=== PATIENT | male | born 1975 | race African-American/Black ===

== ENCOUNTER 2017-03-22 10:16 | Inpatient (IN) | payer OTHER ==
[2017-03-22 11:00] VITALS: BMI 18.6
--- NOTE | 2017-03-22 13:04 | HP ---
CIWA Score - CIWA Score Nausea/Vomitin Muscle Tremors: 2 Anxiety: 4-Mod. Anxious/Guarded Agitation: 2 Paroxysmal Sweats: 2 Orientation: 0-Oriented Tacttile Disturbances: 0-None Auditory Disturbances: 0-None Visual Disturbances: 2-Mild Sensitivity Headache: 0-None Present CIWA-Ar Total Score: 17 Admission ROS BHS - HPI Chief Complaint: "I need help bad." Patient is here to Detox from Alcohol. Allergies/Adverse Reactions: Allergies Allergy/AdvReac Type Severity Reaction Status Date / Time aspirin Allergy Intermediate Rash Verified 03/22/17 12:28 Penicillins Allergy Hives Verified 03/22/17 12:28 milk AdvReac DIARRHEA Verified 03/22/17 12:28 History of Present Illness: Pt. is a 41 YO male here to Detox from Alcohol. Pt. has had several Detox and Rehab admissions [facility] in the past. Exam Limitations: No Limitations - Ebola screening Have you traveled outside of the country in the last 21 days: No Have you had contact with anyone from an Ebola affected area: No Have you been sick,other than usual withdrawal symptoms: No Do you have a fever: No - Review of Systems Constitutional: Diaphoresis, Loss of Appetite, Malaise, Night Sweats, Changes in sleep, Unexplained wgt Loss (Lost approx. 10 lbs. over the last 3 months.) EENT: reports: Nose Congestion, Sinus Pressure Respiratory: reports: No Symptoms reported Cardiac: reports: Chest Pain (Occasional when lying down only. NONE CURRENTLY.) GI: reports: Nausea, Poor Appetite, Vomiting : reports: No Symptoms Reported Musculoskeletal: reports: No Symptoms Reported Integumentary: reports: No Symptoms Reported Neuro: reports: Tremors Endocrine: reports: No Symptoms Reported Hematology: reports: Anemia (Unsure which type. Possibly Iron-Deficiency.) Psychiatric: reports: Judgement Intact, Mood/Affect Appropiate, Orientated x3, Anxious, Depressed Other Systems: Reviewed and Negative Patient History - Patient Medical History Hx Anemia: Yes (unsure. WAIT FOR LAB) Hx Asthma: Yes (Pt was on MDI in past.) Hx Chronic Obstructive Pulmonary Disease (COPD): No Hx Cancer: No Hx Cardiac Disorders: No Hx Congestive Heart Failure: No Hx Hypertension: No Hx Hypercholesterolemia: No Hx Pacemaker: No HX Cerebrovascular Accident: No Hx Seizures: No Hx Dementia: No Hx Diabetes: No Hx Gastrointestinal Disorders: Yes (Crohn's disease. Currently Asymptomatic. No Current Treatment.) Hx Liver Disease: No Hx Genitourinary Disorders: No Hx Sexually Transmitted Disorders: No Hx Renal Disease (ESRD): No Hx Thyroid Disease: No Hx Human Immunodeficiency Virus (HIV): No (NEGATIVE HX; Last tested: 04/2016.) Hx Hepatitis C: No (NEGATIVE HX; Last tested: 04/2016.) Hx Depression: Yes (On meds. Cannot remember name, ran out approx. 1 week ago.) Hx Suicide Attempt: No (PATIENT DENIES CURRENT SI / HI.) Hx Bipolar Disorder: No Hx Schizophrenia: No - Patient Surgical History Past Surgical History: Yes Hx Neurologic Surgery: No Hx Cataract Extraction: No Hx Cardiac Surgery: No Hx Lung Surgery: No Hx Breast Surgery: No Hx Breast Biopsy: No Hx Abdominal Surgery: Yes (Partial removal of Colon due to Crohn's Disease in 2004.) Hx Appendectomy: No Hx Cholecystectomy: No Hx Genitourinary Surgery: No Hx Section: No Hx Orthopedic Surgery: No Anesthesia Reaction: No - PPD History Previous Implant?: Yes Documented Results: Negative w/proof Implanted On Prior [facility] Admission?: Yes Date: 05/18/15 Results: 0 mm PPD to be Administered?: Yes - Reproductive History Patient is a Female of Child Bearing Age (11 -55 yrs old): No (PATIENT IS MALE.) - Smoking Cessation Smoking history: Current some day smoker Have you smoked in the past 12 months: Yes Aproximately how many cigarettes per day: 3 Cigars Per Day: 0 Hx Chewing Tobacco Use: No Initiated information on smoking cessation: Yes 'Breaking Loose' booklet given: 03/22/17 (GIVEN ON UNIT.) - Substance & Tx. History Hx Alcohol Use: Yes Hx Substance Use: Yes Substance Use Type: Alcohol Hx Substance Use Treatment: Yes (Previous Detox and Rehab admissions at [facility].) - Substances Abused Alcohol Route: Oral Frequency: Daily Amount used: LIQUOR- 2 PINTS, BEER- 3 -24OZ Age of first use: 22 Date of Last Use: 03/20/17 Family Disease History - Family Disease History Family Disease History: CA: Father (.), Other: Mother (ETOH AND DRUG DEPENDENT), Daughter (Asthma, .) Admission Physical Exam S - Vital Signs Vital Signs: Vital Signs - 24 hr 03/22/17 10:59 Temperature 97.4 F L Pulse Rate 83 Respiratory 20 Rate Blood Pressure 128/67 - Physical General Appearance: Yes: No Apparent Distress, Appropriately Dressed, Thin, Anxious HEENTM: Yes: Hearing grossly Normal, Normocephalic, Normal Voice, TAMIR, Pharynx Normal Respiratory: Yes: Chest Non-Tender, Lungs Clear, No Respiratory Distress Neck: Yes: No masses,lesions,Nodules, Supple, Trachea in good position Breast: Yes: Breast Exam Deferred Cardiology: Yes: Regular Rhythm, Regular Rate, S1, S2 Abdominal: Yes: Normal Bowel Sounds, Non Tender, Flat, Soft Genitourinary: Yes: Within Normal Limits Back: Yes: Normal Inspection Musculoskeletal: Yes: full range of Motion, Gait Steady Extremities: Yes: Normal Range of Motion, Non-Tender, Tremors Neurological: Yes: Fully Oriented, Alert, Normal Mood/Affect, Normal Response Integumentary: Yes: Normal Color, Dry, Warm Lymphatic: Yes: Within Normal Limits - Diagnostic (1) Alcohol dependence with uncomplicated withdrawal Current Visit: Yes Status: Acute (2) Nicotine dependence Current Visit: Yes Status: Chronic Qualifiers: Nicotine product type: cigarettes Substance use status: uncomplicated Qualified Code(s): F17.210 - Nicotine dependence, cigarettes, uncomplicated (3) Crohns disease Current Visit: Yes Status: Chronic Qualifiers: Gastrointestinal tract location: unspecified location Digestive disease complication type: unspecified complication Qualified Code(s): K50.919 - Crohn's disease, unspecified, with unspecified complications (4) History of asthma Current Visit: Yes Status: Chronic Cleared for Admission [facility] - Detox or Rehab [facility] Level of Care: Medically Managed (PATIENT ADVISED TO FOLLOW-UP WITH [facility] AFTER DISCHARGE FROM DETOX FOR GENERAL MEDICAL ASSESSMENT AND FOR HISTORY OF CROHN'S DISEASE.) Detox Regimen/Protocol: Valium (PATIENT REQUESTS VALIUM DETOX PROTOCOL (HAS HAD LIMITIED SUCCESS WITH LIBRIUM DETOX [facility] IN PAST).) [facility] Breath Alcohol Content Breath Alcohol Content: 0 Urine Drug Screen - Results Drug Screen Negative: Yes
[2017-03-22] MEDS ORDERED: diphenhydrAMINE HCL 50 MG CAPSULE PO PRN (14:00)
[2017-03-22] MEDS ORDERED: guaiFENesin/D-METHORPHAN HB 10 ML UNIT-DOSE CUPS PO PRN (14:00)
[2017-03-22] MEDS ORDERED: diazePAM 5 MG TABLET PO ONE (14:00)
[2017-03-22] MEDS: diazePAM 5 MG TABLET PO SCH ×3 (14:00→22:32)
[2017-03-22] MEDS ORDERED: diazePAM 5 MG TABLET PO PRN (14:00)
[2017-03-22] MEDS ORDERED: MAGNESIUM HYDROX 2400MG/30ML ORAL SUSPENSION 30 ML CUP PO PRN (14:00)
[2017-03-22] MEDS ORDERED: ACETAMINOPHEN 325 MG TABLET (FP) PO PRN (14:00)
[2017-03-22] MEDS ORDERED: MAGNESIUM CITRATE 300 ML BOTTLE PO PRN (14:00)
[2017-03-22] MEDS ORDERED: MENTHOL/PHENOL 1 EACH UD MM PRN (14:00)
[2017-03-22] MEDS ORDERED: hydrOXYzine PAMOATE 50 MG CAPSULE (FP) PO PRN (14:00)
[2017-03-22] MEDS ORDERED: P-EPHED 60MG/TRIPROLIDI 2.5MG TABLET PO PRN (14:00)
[2017-03-22] MEDS ORDERED: NICOTINE POLACRILEX 2 MG GUM BC PRN (14:00)
[2017-03-22] MEDS ORDERED: MAG HYDROX/AL HYDROX/SIMETH 30 ML UNIT-DOSE CUP PO PRN (14:00)
[2017-03-22] MEDS ORDERED: LOPERAMIDE HCL 2 MG CAPSULE PO PRN (14:00)
[2017-03-22] MEDS: NICOTINE 14 MG/24 HOURS TOPICAL PATCH TD SCH (14:40)
[2017-03-22 18:13] LABS: URINE APPEARANCE SLCLOUDY; URINE BILIRUBIN NEGATIVE (NEGATIVE); URINE COLOR YELLOW; URINE GLUCOSE (UA) NEGATIVE (NEGATIVE); URINE KETONE NEGATIVE (NEGATIVE); URINE LEUK ESTERASE NEGATIVE (NEGATIVE); URINE NITRITE NEGATIVE (NEGATIVE); URINE UROBILINOGEN NEGATIVE E.U./dl (0.2-1.0)
[2017-03-22 18:21] LABS: URINE BLOOD 3+ (NEGATIVE); URINE PROTEIN 1+ (NEGATIVE)
[2017-03-22 18:27] LABS: URIC ACID CRYSTALS FEW /hpf (NONE SEEN); URINE MUCUS RARE; URINE RBC 1077 /hpf (0-3)
[2017-03-22] MEDS: THIAMINE HCL 100 MG TABLET (FP) PO SCH (22:32)
[2017-03-23] MEDS: diazePAM 5 MG TABLET PO SCH ×3 (06:05→22:30)
[2017-03-23 10:06] LABS: MCH 30.1 pg (25.7-33.7); MCHC 33.6 g/dl (32.0-35.9); MEAN CELL VOLUME 89.6 fl (80-96); MEAN PLT VOLUME 12.8 fl (7.5-11.1); WHITE BLOOD COUNT 2.1 K/mm3 (4.0-10.0)
[2017-03-23 10:11] LABS: ALBUMIN 3.2 g/dl (3.4-5.0); BILIRUBIN,TOTAL 2.8 mg/dL (0.2-1.0); CALCIUM 11.7 mg/dL (8.5-10.1); COCKROFT - GAULT 46.51; CREATININE 1.8 mg/dL (0.7-1.3); TOT PROT 7.9 g/dl (6.4-8.2)
[2017-03-23 10:15] LABS: PLATELET COUNT 3 K/MM3 (134-434)
--- NOTE | 2017-03-23 10:30 | EKG ---
Test Reason : Blood Pressure : / mmHG Vent. Rate : 067 BPM Atrial Rate : 067 BPM P-R Int : 162 ms QRS Dur : 104 ms QT Int : 400 ms P-R-T Axes : 050 019 044 degrees QTc Int : 422 ms NORMAL SINUS RHYTHM POOR R WAVE PROGRESSION NON-SPECIFIC INTRA-VENTRICULAR CONDUCTION DELAY NO PREVIOUS ECGS AVAILABLE Confirmed by MD PIERCE, AUSTIN ([id number]) on 03/23/2017 10:30:03 AM Referred By: Confirmed By:AUSTIN PELAYO MD
--- NOTE | 2017-03-23 10:44 | CONSULT ---
[facility] Psychiatric Consult - Data Date of interview: 03/23/17 Admission source: [facility] Identifying data: Another admission to [facility] for this 41 y/o AA male seeking detox treatment on for alcohol and marijuana dependence.Patient is single without children,homeless ([employer]),unemployed and supported on Public Assistance. Substance Abuse History: - Smoking Cessation. Smoking history: Current some day smoker. Have you smoked in the past 12 months: Yes. Aproximately how many cigarettes per day: 3. Cigars Per Day: 0. Hx Chewing Tobacco Use: No. Initiated information on smoking cessation: Yes. 'Breaking Loose' booklet given : 03/22/17 (GIVEN ON UNIT.). - Substance & Tx. History. Hx Alcohol Use: Yes. Hx Substance Use: Yes. Substance Use Type: Alcohol. Hx Substance Use Treatment : Yes (Previous Detox and Rehab admissions at [facility].). - Substances Abused. Alcohol. Route: Oral. Frequency: Daily. Amount used: LIQUOR- 2 PINTS, BEER- 3 -24OZ. Age of first use: 22. Date of Last Use: 03/20/17. Confirmed by patient. Medical History: Crohn's disease,GERD,bronchial asthma and anemia.Noted history of partial colectomy (2004). Psychiatric History: No reported history of psychiatric hospitalizations.Patient endorses the diagnosis of MDD and he gets his psychiatric OPD care at the [facility] program in the [place].Mr Page indicates that he is prescribed ambien and vistaril.No history of suicide attempts. Physical/Sexual Abuse/Trauma History: Patient denies. Additional Comment: Drug Screen is negative. Mental Status Exam - Mental Status Exam Alert and Oriented to: Time, Place, Person Cognitive Function: Good Patient Appearance: Well Groomed Mood: Hopeful, Euthymic Affect: Appropriate, Normal Range Patient Behavior: Fatigued, Appropriate, Cooperative Speech Pattern: Clear Voice Loudness: Normal Thought Process: Goal Oriented Thought Disorder: Not Present Hallucinations: Denies Suicidal Ideation: Denies Homicidal Ideation: Denies Insight/Judgement: Poor Sleep: Poorly, Difficulty falling asleep (wants ambien) Appetite: Good Muscle strength/Tone: Normal Gait/Station: Normal Psychiatric Findings - Problem List ([place] 1, 2,3) (1) Alcohol dependence with uncomplicated withdrawal Current Visit: Yes Status: Acute (2) Nicotine dependence Current Visit: Yes Status: Acute Qualifiers: Nicotine product type: cigarettes Substance use status: uncomplicated Qualified Code(s): F17.210 - Nicotine dependence, cigarettes, uncomplicated (3) Marijuana dependence Current Visit: Yes Status: Acute (4) Substance induced mood disorder Current Visit: Yes Status: Acute (5) History of partial surgical removal of colon Current Visit: No Status: Chronic (6) Crohns disease Current Visit: Yes Status: Chronic Qualifiers: Gastrointestinal tract location: unspecified location Digestive disease complication type: unspecified complication Qualified Code(s): K50.919 - Crohn's disease, unspecified, with unspecified complications (7) History of asthma Current Visit: Yes Status: Chronic (8) Asthma Current Visit: No Status: Chronic Qualifiers: Asthma severity: mild intermittent Asthma complication type: with status asthmaticus Qualified Code(s): J45.22 - Mild intermittent asthma with status asthmaticus (9) GERD (gastroesophageal reflux disease) Current Visit: Yes Status: Chronic Qualifiers: Esophagitis presence: without esophagitis Qualified Code(s): K21.9 - Gastro-esophageal reflux disease without esophagitis - Initial Treatment Plan Initial Treatment Plan: Psychoeducation.Detoxification in progress.Medications : ambien 10 mg po hs + vistaril 50 mg po Q 4 h prn.Side effects/benefits discussed with the patient.He agrees with this careplan.Observation.
[2017-03-23] MEDS: NICOTINE 14 MG/24 HOURS TOPICAL PATCH TD SCH (10:45)
[2017-03-23] MEDS: PRENATAL VITAMINS W/ FOLIC ACID TABLET (FP) PO SCH (10:45)
--- NOTE | 2017-03-23 10:49 | PN ---
S CIWA - CIWA Score Nausea/Vomitin Muscle Tremors: 3 Anxiety: 2 Agitation: 2 Paroxysmal Sweats: 1-Minimal Palms Moist Orientation: 0-Oriented Tacttile Disturbances: 1-Very Mild Itch/Numbness Auditory Disturbances: 1-Very Mild Visual Disturbances: 1-Very Mild Sensitivity Headache: 2-Mild CIWA-Ar Total Score: 16 S Progress Note (SOAP) Subjective: ALERT,FEEL WEAK,ANXIOUS,INTERRUPTED SLEEP,HEMATURIA 3 DAYS AGO,HISTORY OF CROHN' S DISEASE S/P SURGERY Objective: 03/23/17 10:43 Vital Signs Temperature 97.5 F L 03/23/17 09:49 Pulse Rate 99 H 03/23/17 09:49 Respiratory Rate 20 03/23/17 09:49 Blood Pressure 121/67 03/23/17 09:49 O2 Sat by Pulse Oximetry (%) EKG NSR,NORMAL ECG 03/23/17 10:44 Laboratory Last Values WBC 2.1 K/mm3 (4.0-10.0) L 03/23/17 07:00 RBC 3.67 M/mm3 (4.00-5.60) L 03/23/17 07:00 Hgb 11.1 GM/dL (11.7-16.9) L 03/23/17 07:00 Hct 32.9 % (35.4-49) L 03/23/17 07:00 MCV 89.6 fl (80-96) 03/23/17 07:00 MCHC 33.6 g/dl (32.0-35.9) 03/23/17 07:00 RDW 15.0 % (11.9-15.9) 03/23/17 07:00 Plt Count 3 K/MM3 (134-434) L* D 03/23/17 07:00 MPV 12.8 fl (7.5-11.1) H D 03/23/17 07:00 Sodium 139 mmol/L (136-145) 03/23/17 07:00 Potassium 4.2 mmol/L (3.5-5.1) 03/23/17 07:00 Chloride 103 mmol/L (98-107) 03/23/17 07:00 Carbon Dioxide 28 mmol/L (21-32) D 03/23/17 07:00 Anion Gap 8 (8-16) 03/23/17 07:00 BUN 16 mg/dL (7-18) 03/23/17 07:00 Creatinine 1.8 mg/dL (0.7-1.3) H 03/23/17 07:00 Creat Clearance w eGFR 41.39 (>60) 03/23/17 07:00 Random Glucose 85 mg/dL (74-106) 03/23/17 07:00 Calcium 11.7 mg/dL (8.5-10.1) H 03/23/17 07:00 Total Bilirubin 2.8 mg/dL (0.2-1.0) H D 03/23/17 07:00 AST 66 U/L (15-37) H 03/23/17 07:00 ALT 41 U/L (12-78) D 03/23/17 07:00 Alkaline Phosphatase 200 U/L (45-117) H D 03/23/17 07:00 Total Protein 7.9 g/dl (6.4-8.2) D 03/23/17 07:00 Albumin 3.2 g/dl (3.4-5.0) L 03/23/17 07:00 Urine Color Yellow 03/22/17 17:00 Urine Appearance Slcloudy 03/22/17 17:00 Urine pH 6.0 (5.0-8.0) 03/22/17 17:00 Ur Specific [place] 1.020 (1.005-1.025) 03/22/17 17:00 Urine Protein 1+ (NEGATIVE) H 03/22/17 17:00 Urine Glucose (UA) Negative (NEGATIVE) 03/22/17 17:00 Urine Ketones Negative (NEGATIVE) 03/22/17 17:00 Urine Blood 3+ (NEGATIVE) H 03/22/17 17:00 Urine Nitrite Negative (NEGATIVE) 03/22/17 17:00 Urine Bilirubin Negative (NEGATIVE) 03/22/17 17:00 Urine Urobilinogen Negative E.U./dl (0.2-1.0) 03/22/17 17:00 Ur Leukocyte Esterase Negative (NEGATIVE) 03/22/17 17:00 Urine RBC 1077 /hpf (0-3) 03/22/17 17:00 Urine WBC None /hpf (3-5) 03/22/17 17:00 Ur Epithelial Cells Moderate /hpf (FEW) 03/22/17 17:00 Uric Acid Crystals Few /hpf (NONE SEEN) 03/22/17 17:00 Urine Mucus Rare 03/22/17 17:00 03/23/17 10:49 Assessment: 03/23/17 10:49 WITHDRAWAL SYMPTOM Plan: CONTINUE DETOX,CLOSE MONITORING FOR PANCYTOPENIA AND THROMBOCYTOPENIA,CONTINUE DETOX
[2017-03-23 14:05] LABS: PLATELET ESTIMATE MARKEDLY DECREASED (NORMAL)
[2017-03-23] MEDS ORDERED: ZOLPIDEM TARTRATE 10 MG TABLET (PARK CARE ONLY) PO PRN (22:00)
[2017-03-23] MEDS: THIAMINE HCL 100 MG TABLET (FP) PO SCH (22:30)
[2017-03-24 10:05] LABS: MCHC 33.7 g/dl (32.0-35.9); RDW 14.6 % (11.9-15.9); WHITE BLOOD COUNT 2.3 K/mm3 (4.0-10.0)
[2017-03-24 10:08] LABS: PLATELET COUNT 5 K/MM3 (134-434)
[2017-03-24 10:14] LABS: INR 1.11 (0.82-1.09); PROTHROMBIN TIME (PATIENT) 12.2 SEC (9.98-11.88)
[2017-03-24 10:17] VITALS: BP 125/84; PULSE 112; TEMP 98.2
[2017-03-24] MEDS: diazePAM 5 MG TABLET PO SCH ×2 (10:28→22:33)
[2017-03-24] MEDS: PRENATAL VITAMINS W/ FOLIC ACID TABLET (FP) PO SCH (10:28)
[2017-03-24] MEDS: NICOTINE 14 MG/24 HOURS TOPICAL PATCH TD SCH (10:28)
[2017-03-24 10:31] LABS: ALBUMIN 3.2 g/dl (3.4-5.0); CALCIUM 12.1 mg/dL (8.5-10.1); COCKROFT - GAULT 46.51; CREATININE 1.8 mg/dL (0.7-1.3)
[2017-03-24 10:34] LABS: BILIRUBIN,TOTAL 2.9 mg/dL (0.2-1.0)
--- NOTE | 2017-03-24 11:15 | PN ---
[facility] CIWA - CIWA Score Nausea/Vomitin Muscle Tremors: 3 Anxiety: 3 Agitation: 3 Paroxysmal Sweats: 1-Minimal Palms Moist Orientation: 0-Oriented Tacttile Disturbances: 1-Very Mild Itch/Numbness Auditory Disturbances: 1-Very Mild Visual Disturbances: 1-Very Mild Sensitivity Headache: 2-Mild CIWA-Ar Total Score: 17 BHS Progress Note (SOAP) Subjective: ALERT,IRRITABLE,ANXIOUS,INTERRUPTED SLEEP,TREMOR,BLEEDING ORAL BUCCAL STOPPED HEMATURIA Objective: 03/24/17 11:02 Vital Signs Temperature 98.2 F 03/24/17 10:16 Pulse Rate 112 H 03/24/17 10:16 Respiratory Rate 18 03/24/17 10:16 Blood Pressure 125/84 03/24/17 10:16 O2 Sat by Pulse Oximetry (%) Laboratory Last Values WBC 2.3 K/mm3 (4.0-10.0) L 03/24/17 07:00 RBC 3.76 M/mm3 (4.00-5.60) L 03/24/17 07:00 Hgb 11.3 GM/dL (11.7-16.9) L 03/24/17 07:00 Hct 33.5 % (35.4-49) L 03/24/17 07:00 MCV 89.0 fl (80-96) 03/24/17 07:00 MCHC 33.7 g/dl (32.0-35.9) 03/24/17 07:00 RDW 14.6 % (11.9-15.9) 03/24/17 07:00 Plt Count 5 K/MM3 (134-434) L* D 03/24/17 07:00 MPV 12.0 fl (7.5-11.1) H 03/24/17 07:00 Platelet Estimate Markedly decreased (NORMAL) 03/23/17 07:00 Platelet Comment No clumping noted 03/23/17 07:00 INR 1.11 (0.82-1.09) 03/24/17 07:00 Sodium 138 mmol/L (136-145) 03/24/17 07:00 Potassium 4.4 mmol/L (3.5-5.1) 03/24/17 07:00 Chloride 102 mmol/L (98-107) 03/24/17 07:00 Carbon Dioxide 29 mmol/L (21-32) 03/24/17 07:00 Anion Gap 7 (8-16) L 03/24/17 07:00 BUN 16 mg/dL (7-18) 03/24/17 07:00 Creatinine 1.8 mg/dL (0.7-1.3) H 03/24/17 07:00 Creat Clearance w eGFR 41.39 (>60) 03/24/17 07:00 Random Glucose 75 mg/dL (74-106) 03/24/17 07:00 Calcium 12.1 mg/dL (8.5-10.1) H 03/24/17 07:00 Total Bilirubin 2.9 mg/dL (0.2-1.0) H 03/24/17 07:00 AST 69 U/L (15-37) H 03/24/17 07:00 ALT 41 U/L (12-78) 03/24/17 07:00 Alkaline Phosphatase 210 U/L (45-117) H 03/24/17 07:00 Total Protein 8.0 g/dl (6.4-8.2) 03/24/17 07:00 Albumin 3.2 g/dl (3.4-5.0) L 03/24/17 07:00 Urine Color Yellow 03/22/17 17:00 Urine Appearance Slcloudy 03/22/17 17:00 Urine pH 6.0 (5.0-8.0) 03/22/17 17:00 Ur Specific [place] 1.020 (1.005-1.025) 03/22/17 17:00 Urine Protein 1+ (NEGATIVE) H 03/22/17 17:00 Urine Glucose (UA) Negative (NEGATIVE) 03/22/17 17:00 Urine Ketones Negative (NEGATIVE) 03/22/17 17:00 Urine Blood 3+ (NEGATIVE) H 03/22/17 17:00 Urine Nitrite Negative (NEGATIVE) 03/22/17 17:00 Urine Bilirubin Negative (NEGATIVE) 03/22/17 17:00 Urine Urobilinogen Negative E.U./dl (0.2-1.0) 03/22/17 17:00 Ur Leukocyte Esterase Negative (NEGATIVE) 03/22/17 17:00 Urine RBC 1077 /hpf (0-3) 03/22/17 17:00 Urine WBC None /hpf (3-5) 03/22/17 17:00 Ur Epithelial Cells Moderate /hpf (FEW) 03/22/17 17:00 Uric Acid Crystals Few /hpf (NONE SEEN) 03/22/17 17:00 Urine Mucus Rare 03/22/17 17:00 RPR Titer Nonreactive (NONREACTIVE) 03/23/17 07:00 03/24/17 11:15 Assessment: 03/24/17 11:16 WITHDRAWAL SYMPTOM Plan: PANCYTOPENIA,THROMBOCYTOPENIA,HEMATURIA, TRANSFER TO [facility] ER FOR EVALUATION AND TREATMENT SPOKE WITH MILI CID TANSFERRED BY [facility]
[2017-03-24] MEDS: THIAMINE HCL 100 MG TABLET (FP) PO SCH (22:33)
[2017-03-26] MEDS ORDERED: diazePAM 5 MG TABLET PO SCH (10:00)
--- NOTE | 2017-03-31 12:26 | DS ---
[facility] Detox Discharge Summary Admission Date: 03/22/17 Discharge Date: 03/24/17 - History Present History: Alcohol Dependence Pertinent Past History: Asthma Crohn's disease - Physical Exam Results Vital Signs: Vital Signs Temperature 98.2 F 03/24/17 10:16 Pulse Rate 112 H 03/24/17 10:16 Respiratory Rate 18 03/24/17 10:16 Blood Pressure 125/84 03/24/17 10:16 O2 Sat by Pulse Oximetry (%) Pertinent Admission Physical Exam Findings: Withdrawal sx. Laboratory Last Values WBC 2.3 K/mm3 (4.0-10.0) L 03/24/17 07:00 RBC 3.76 M/mm3 (4.00-5.60) L 03/24/17 07:00 Hgb 11.3 GM/dL (11.7-16.9) L 03/24/17 07:00 Hct 33.5 % (35.4-49) L 03/24/17 07:00 MCV 89.0 fl (80-96) 03/24/17 07:00 MCHC 33.7 g/dl (32.0-35.9) 03/24/17 07:00 RDW 14.6 % (11.9-15.9) 03/24/17 07:00 Plt Count 5 K/MM3 (134-434) L* D 03/24/17 07:00 MPV 12.0 fl (7.5-11.1) H 03/24/17 07:00 Platelet Estimate Markedly decreased (NORMAL) 03/23/17 07:00 Platelet Comment No clumping noted 03/23/17 07:00 INR 1.11 (0.82-1.09) 03/24/17 07:00 Sodium 138 mmol/L (136-145) 03/24/17 07:00 Potassium 4.4 mmol/L (3.5-5.1) 03/24/17 07:00 Chloride 102 mmol/L (98-107) 03/24/17 07:00 Carbon Dioxide 29 mmol/L (21-32) 03/24/17 07:00 Anion Gap 7 (8-16) L 03/24/17 07:00 BUN 16 mg/dL (7-18) 03/24/17 07:00 Creatinine 1.8 mg/dL (0.7-1.3) H 03/24/17 07:00 Creat Clearance w eGFR 41.39 (>60) 03/24/17 07:00 Random Glucose 75 mg/dL (74-106) 03/24/17 07:00 Calcium 12.1 mg/dL (8.5-10.1) H 03/24/17 07:00 Total Bilirubin 2.9 mg/dL (0.2-1.0) H 03/24/17 07:00 AST 69 U/L (15-37) H 03/24/17 07:00 ALT 41 U/L (12-78) 03/24/17 07:00 Alkaline Phosphatase 210 U/L (45-117) H 03/24/17 07:00 Total Protein 8.0 g/dl (6.4-8.2) 03/24/17 07:00 Albumin 3.2 g/dl (3.4-5.0) L 03/24/17 07:00 Urine Color Yellow 03/22/17 17:00 Urine Appearance Slcloudy 03/22/17 17:00 Urine pH 6.0 (5.0-8.0) 03/22/17 17:00 Ur Specific [place] 1.020 (1.005-1.025) 03/22/17 17:00 Urine Protein 1+ (NEGATIVE) H 03/22/17 17:00 Urine Glucose (UA) Negative (NEGATIVE) 03/22/17 17:00 Urine Ketones Negative (NEGATIVE) 03/22/17 17:00 Urine Blood 3+ (NEGATIVE) H 03/22/17 17:00 Urine Nitrite Negative (NEGATIVE) 03/22/17 17:00 Urine Bilirubin Negative (NEGATIVE) 03/22/17 17:00 Urine Urobilinogen Negative E.U./dl (0.2-1.0) 03/22/17 17:00 Ur Leukocyte Esterase Negative (NEGATIVE) 03/22/17 17:00 Urine RBC 1077 /hpf (0-3) 03/22/17 17:00 Urine WBC None /hpf (3-5) 03/22/17 17:00 Ur Epithelial Cells Moderate /hpf (FEW) 03/22/17 17:00 Uric Acid Crystals Few /hpf (NONE SEEN) 03/22/17 17:00 Urine Mucus Rare 03/22/17 17:00 RPR Titer Nonreactive (NONREACTIVE) 03/23/17 07:00 labs noted,pt. was transferred to ED at [facility] for evaluation severe thrombocytopenia.pt. was admitted to med/surg - Medication Discharge Medications: Ambulatory Orders Zolpidem Tartrate [Ambien] 10 mg PO HS 05/08/16 Atovaquone [Mepron Oral Solution -] 1,500 mg PO DAILY@0800 #70 ml 03/31/17 Prednisone 10 mg PO DAILY #90 tablet 03/31/17 - Diagnosis (1) Alcohol dependence with uncomplicated withdrawal Status: Acute (2) Decreased platelet count Status: Acute (3) Neutropenia Status: Acute (4) Marijuana dependence Status: Acute (5) Nicotine dependence Status: Acute Qualifiers: Nicotine product type: cigarettes Substance use status: uncomplicated Qualified Code(s): F17.210 - Nicotine dependence, cigarettes, uncomplicated (6) Substance induced mood disorder Status: Acute (7) Asthma Status: Chronic Qualifiers: Asthma severity: mild intermittent Asthma complication type: with status asthmaticus Qualified Code(s): J45.22 - Mild intermittent asthma with status asthmaticus (8) Crohns disease Status: Chronic Qualifiers: Gastrointestinal tract location: unspecified location Digestive disease complication type: unspecified complication Qualified Code(s): K50.919 - Crohn's disease, unspecified, with unspecified complications (9) GERD (gastroesophageal reflux disease) Status: Chronic Qualifiers: Esophagitis presence: without esophagitis Qualified Code(s): K21.9 - Gastro-esophageal reflux disease without esophagitis - AMA Did Patient Leave Against Medical Advice: No (Transferred to ED)
== END 2017-03-24 23:40 | disposition short-term general hospital (02) | DRG 775 ==
LOC: YASAS 10:16 → Y6N 13:02
PROVIDERS: ADMIT Internal Medicine; ATTEND Internal Medicine Addiction Medicine
PROC: HZ2ZZZZ Detoxification Services for Substance Abuse Treatment (ICD-10-PCS; principal; 2017-03-22)
DX: F10.230 Alcohol dependence with withdrawal, uncomplicated (principal); F17.210 Nicotine dependence, cigarettes, uncomplicated; F19.24 Other psychoactive substance dependence with psychoactive substance-induced mood disorder; K50.919 Crohn's disease, unspecified, with unspecified complications; Z90.49 Acquired absence of other specified parts of digestive tract; J45.22 Mild intermittent asthma with status asthmaticus; K21.9 Gastro-esophageal reflux disease without esophagitis; D61.818 Other pancytopenia; D69.6 Thrombocytopenia, unspecified; R31.9 Hematuria, unspecified
CPT/HCPCS: 36415; 80053; 81003; 81015; 85027; 85610; 86593; 93005; 93010

== ENCOUNTER 2017-03-24 12:23 | Inpatient (IN) | payer OTHER ==
[2017-03-24 12:52] VITALS: BMI 17.1
--- NOTE | 2017-03-24 13:35 | PDOC ---
History of Present Illness - General Chief Complaint: Revisit, Lab Variance Stated Complaint: IRREGULAR LAB WORK Time Seen by Provider: 03/24/17 12:32 History Source: Patient Exam Limitations: No Limitations - History of Present Illness Initial Comments: 03/24/17 13:08 41-year-old male sent over from [facility] where he is being treated for alcohol abuse presents with bleeding gums and hematuria . as per patient he was admitted there yesterday and was noted to have the above and then one mentioned his history that this has happened to him before requiring him to be admitted at our [facility] in the [place] last year patient was sent over. Patient denies chest pain, shortness of breath, blood in stool, abdominal distention, headache, dizziness, recent fall, or recent illness. Timing/Duration: constant Severity: moderate Associated Symptoms: reports: denies symptoms Past History - Travel Traveled outside of the country in the last 30 days: No Close contact w/someone who was outside of country & ill: No - Past Medical History Allergies/Adverse Reactions: Allergies Allergy/AdvReac Type Severity Reaction Status Date / Time aspirin Allergy Intermediate Rash Verified 03/22/17 12:28 Penicillins Allergy Hives Verified 03/22/17 12:28 milk AdvReac DIARRHEA Verified 03/22/17 12:28 Home Medications: Ambulatory Orders Zolpidem Tartrate [Ambien] 10 mg PO HS 05/08/16 Anemia: Yes Asthma: Yes (Pt was on MDI in past.) Cancer: No Cardiac Disorders: No CVA: No COPD: No CHF: No Dementia: No Diabetes: No GI Disorders: Yes (Crohn's disease. Currently Asymptomatic. No Current Treatment.) Disorders: No HTN: No Hypercholesterolemia: No Kidney Stones: No Liver Disease: No Suicide Attempt (Hx): No (PATIENT DENIES CURRENT SI / HI.) Seizures: No Thyroid Disease: No - Surgical History Abdominal Surgery: Yes (Partial removal of Colon due to Crohn's Disease in 2004. ) Appendectomy: No Cardiac Surgery: No Cholecystectomy: No Lung Surgery: No Neurologic Surgery: No Orthopedic Surgery: No - Reproductive History Testicular Surgery: No - Psycho/Social/Smoking Cessation Hx Anxiety: No Suicidal Ideation: No Smoking History: Current every day smoker Have you smoked in the past 12 months: Yes Number of Cigarettes Smoked Daily: 2 If you are a former smoker, when did you quit?: 12 MONTHS Cigars Per Day: 0 Information on smoking cessation initiated: No 'Breaking Loose' booklet given: 03/22/17 Hx Alcohol Use: Yes Drug/Substance Use Hx: No Substance Use Type: Alcohol Hx Substance Use Treatment: Yes (Previous Detox and Rehab admissions at [facility].) Patient Lives Alone: No Review of Systems - Review of Systems Able to Perform ROS?: Yes Constitutional: No: Symptoms Reported HEENTM: No: Blurred Vision, Nose Bleeding Respiratory: No: Symptoms reported Cardiac (ROS): No: Symptoms Reported ABD/GI: No: Symptoms Reported : Yes: Hematuria Musculoskeletal: No: Symptoms Reported Integumentary: Yes: Bruising Neurological: No: Symptoms reported Endocrine: No: Symptoms Reported Hematologic/Lymphatic: Yes: Easy Bleeding, Easy Bruising *Physical Exam - Vital Signs Last Vital Signs Temp Pulse Resp BP Pulse Ox 98.7 F 87 18 112/65 95 03/24/17 12:30 03/24/17 12:30 03/24/17 12:30 03/24/17 12:30 03/24/17 12:30 - Physical Exam General Appearance: Yes: Nourished, Appropriately Dressed. No: Apparent Distress HEENT: positive: EOMI, TAMIR. negative: Pale Conjunctivae (dried brown tinged build-up on teeth and noted pinhead sized purpleish non-blanchable spots to buccal mucosa and gingiva) Neck: positive: Supple Respiratory/Chest: positive: Lungs Clear, Normal Breath Sounds. negative: Respiratory Distress, Accessory Muscle Use Cardiovascular: positive: Regular Rhythm, Regular Rate. negative: Murmur Gastrointestinal/Abdominal: positive: Soft. negative: Tenderness Musculoskeletal: negative: CVA Tenderness Extremity: positive: Normal Capillary Refill. negative: Pedal Edema Integumentary: positive: Bruising (lower extremity x 2). negative: Petechiae Neurologic: positive: Normal Mood/Affect, Motor Strength 5/5 Heart Score/ECG Review - History History: Slightly suspicious - Age Age: </= 45 - Risk Factors Risk Factors Heart Score: Yes Smoking History Based on the list above the patient has:: 1-2 risk factors - Troponin Troponin: </= normal limit - ECG Intrepretation Rhythm: Regular Rhythm (rate 79. Nonspecific T-wave abnormality) ED Treatment Course - LABORATORY CBC & Chemistry Diagram: 03/24/17 13:35 03/24/17 13:35 - RADIOLOGY Radiology Studies Ordered: Category Date Time Status CHEST X-RAY PORTABLE* [RAD] Stat Radiology 03/24/17 13:02 Taken Medical Decision Making - Medical Decision Making 03/24/17 13:36 Patient sent over for low platelets and bleeding gums along with hematuria patient has a platelet count of 5 and states has been admitted for this in the past. Patient denies liver disorders although he is an alcoholic. Patient also denies bleeding disorders. Patient ordered for coags, type and screen, platelets, cardiac profile, IV access, cardiac monitor technician, and will be admitted to the hospitalist. 03/24/17 15:22 Chest x-ray shows no acute findings. Patient will be admitted to the hospitalist. Patient currently comfortable and will assess the patient did receive platelets. Laboratory Tests 03/24/17 03/24/17 03/24/17 13:35 13:35 13:35 WBC 2.2 L RBC 3.92 L Hgb 11.7 Hct 35.2 L MCV 89.6 Plt Count 6 L* MPV 9.0 D Neutrophils % 62.9 Lymphocytes % 17.3 Monocytes % 15.1 H INR Pending Creatine Kinase 402 H CK-MB (CK-2) 9.174 H Troponin I < 0.02 Blood Type 03/24/17 14:26 WBC RBC Hgb Hct MCV Plt Count MPV Neutrophils % Lymphocytes % Monocytes % INR Creatine Kinase CK-MB (CK-2) Troponin I Blood Type O POSITIVE 03/24/17 16:03 Laboratory Tests 03/24/17 13:35 BUN 16 Creatinine 1.8 H LD Total 410 H 03/24/17 16:07 Case discussed with hospitalist and accepted to service. *DC/Admit/Observation/Transfer Diagnosis at time of Disposition: Decreased platelet count, Alcohol dependence with uncomplicated withdrawal Neutropenia Qualifiers: Neutropenia type: unspecified Qualified Code(s): D70.9 - Neutropenia, unspecified - Discharge Dispostion Admit: Yes
[2017-03-24 13:57] LABS: BASOPHIL 1.5 % (0-2.0); EOSINOPHIL 3.2 % (0-4.5); MCH 29.8 pg (25.7-33.7); MCHC 33.3 g/dl (32.0-35.9); MEAN CELL VOLUME 89.6 fl (80-96); NEUTROPHILS 62.9 % (42.8-82.8); RDW 14.8 % (11.9-15.9)
[2017-03-24 14:04] LABS: TROPONIN I < 0.02 ng/ml (0.00-0.05)
[2017-03-24 14:15] LABS: PLATELET COUNT 6 K/MM3 (134-434)
[2017-03-24 14:16] LABS: WHITE BLOOD COUNT 2.2 K/mm3 (4.0-10.0)
[2017-03-24 14:25] LABS: INR 1.11 (0.82-1.09); PROTHROMBIN TIME (PATIENT) 12.2 SEC (9.98-11.88)
[2017-03-24 15:42] LABS: ALBUMIN 3.4 g/dl (3.4-5.0); COCKROFT - GAULT 46.51; CREATININE 1.8 mg/dL (0.7-1.3); GLUCOSE,RANDOM 73 mg/dL (74-106); LDH 410 U/L (87-241); SGOT/AST 73 U/L (15-37); TOT PROT 8.4 g/dl (6.4-8.2)
--- NOTE | 2017-03-24 15:49 | EKG ---
Test Reason : Blood Pressure : / mmHG Vent. Rate : 079 BPM Atrial Rate : 079 BPM P-R Int : 154 ms QRS Dur : 102 ms QT Int : 358 ms P-R-T Axes : 051 008 041 degrees QTc Int : 410 ms NORMAL SINUS RHYTHM NONSPECIFIC T WAVE ABNORMALITY ABNORMAL ECG WHEN COMPARED WITH ECG OF 22-MAR-2017 13:39, NO SIGNIFICANT CHANGE WAS FOUND Confirmed by MIKE DURAN MD ([id number]) on 03/24/2017 3:49:10 PM Referred By: Confirmed By:MIKE DURAN MD
--- NOTE | 2017-03-24 16:39 | HP ---
CHIEF COMPLAINT: thrombocytopenia, hematuria, pancytopenia PCP: does not have one HISTORY OF PRESENT ILLNESS: 41-year-old male sent over from [facility] detox where he is being treated for alcohol abuse presents with bleeding gums and hematuria . as per patient he was admitted there yesterday and was noted to have the above and then one mentioned his history that this has happened to him before requiring him to be admitted at our [facility] in the [place] last year patient was sent over. Patient denies chest pain, shortness of breath, blood in stool, abdominal distention, headache, dizziness, recent fall, or recent illness. Only active bleeding noted is the oral mucosal lining by teeth. Denies any recent trauma ER course was notable for: (1)lab work with plts of 6 noted: 2 u plts ordered, repeat cbc ordered (2)on a valium w/d protocol in [facility]. valium on prn status. (3)elevated cr to 1.8 but not knew for pt, will watch Recent Travel: PAST MEDICAL HISTORY: toxic habits ?TTP PAST SURGICAL HISTORY: Social History: Smoking:current Alcohol:last use is 03/22, Drugs: marijuana last use 03/21 Family History: Allergies aspirin Allergy (Intermediate, Verified 03/22/17 12:28) Rash 01/19/14; DR. Flex WAN SAYS THE PATIENT TOLD HIM HE TAKES MOTRIN WITHOUT ANY PROBLEMS. 12/04/14; DR. ACOSTA SAYS PATIENT TAKES MOTRIN WITH NO PROBLEMS. Penicillins Allergy (Verified 03/22/17 12:28) Hives milk Adverse Reaction (Verified 03/22/17 12:28) DIARRHEA HOME MEDICATIONS: Home Medications Medication Instructions Recorded Zolpidem Tartrate [Ambien] 10 mg PO HS 05/08/16 REVIEW OF SYSTEMS CONSTITUTIONAL: Absent: fever, chills, diaphoresis, generalized weakness, malaise, loss of appetite, weight change HEENT: Absent: rhinorrhea, nasal congestion, throat pain, throat swelling, difficulty swallowing, mouth swelling, ear pain, eye pain, visual changes CARDIOVASCULAR: Absent: chest pain, syncope, palpitations, irregular heart rate, lightheadedness , peripheral edema RESPIRATORY: Absent: cough, shortness of breath, dyspnea with exertion, orthopnea, wheezing, stridor, hemoptysis GASTROINTESTINAL: Absent: abdominal pain, abdominal distension, nausea, vomiting, diarrhea, constipation, melena, hematochezia GENITOURINARY: Absent: dysuria, frequency, urgency, hesitancy, hematuria, flank pain, genital pain MUSCULOSKELETAL: Absent: myalgia, arthralgia, joint swelling, back pain, neck pain SKIN: Absent: rash, itching, pallor HEMATOLOGIC/IMMUNOLOGIC: Absent: (+)easy bleeding, (+)easy bruising, lymphadenopathy, frequent infections ENDOCRINE: Absent: unexplained weight gain, unexplained weight loss, heat intolerance, cold intolerance NEUROLOGIC: Absent: headache, focal weakness or paresthesias, dizziness, unsteady gait, seizure, mental status changes, bladder or bowel incontinence PSYCHIATRIC: Absent: anxiety, depression, suicidal or homicidal ideation, hallucinations. PHYSICAL EXAMINATION Vital Signs - 24 hr 03/24/17 12:30 Temperature 98.7 F Pulse Rate 87 Respiratory 18 Rate Blood Pressure 112/65 O2 Sat by Pulse 95 Oximetry (%) GENERAL: Awake, alert, and fully oriented, in no acute distress. HEAD: Normal with no signs of trauma. EYES: Pupils equal, round and reactive to light, extraocular movements intact, sclera anicteric, conjunctiva clear. No lid lag. EARS, NOSE, THROAT: Ears normal, nares patent, oropharynx clear without exudates. Moist mucous membranes with some bloody scabs and no active bleeding but noted to be red in multiple oral mucosal areas. NECK: Normal range of motion, supple without lymphadenopathy, JVD, or masses. LUNGS: Breath sounds equal, clear to auscultation bilaterally. No wheezes, and no crackles. No accessory muscle use. HEART: Regular rate and rhythm, normal S1 and S2 without murmur, rub or gallop. ABDOMEN: Soft, nontender, not distended, normoactive bowel sounds, no guarding, no rebound, no masses. No hepatomegaly or splenomegaly. MUSCULOSKELETAL: Normal range of motion at all joints. No bony deformities or tenderness. No CVA tenderness. UPPER EXTREMITIES: 2+ pulses, warm, well-perfused. No cyanosis. No clubbing. No peripheral edema. LOWER EXTREMITIES: 2+ pulses, warm, well-perfused. No calf tenderness. No peripheral edema. NEUROLOGICAL: Cranial nerves II-XII intact. Normal speech. Normal gait. PSYCHIATRIC: Cooperative. Good eye contact. Appropriate mood and affect. SKIN: Warm, dry, normal turgor, no rashes or lesions noted, normal capillary refill. Laboratory Results - last 24 hr 03/24/17 03/24/17 03/24/17 13:35 13:35 13:35 WBC 2.2 L RBC 3.92 L Hgb 11.7 Hct 35.2 L MCV 89.6 MCHC 33.3 RDW 14.8 Plt Count 6 L* MPV 9.0 D Neutrophils % 62.9 Lymphocytes % 17.3 Monocytes % 15.1 H Eosinophils % 3.2 Basophils % 1.5 INR 1.11 Sodium 137 Potassium 4.2 Chloride 100 BUN 16 Creatinine 1.8 H Creat Clearance w eGFR 41.39 Random Glucose 73 L Calcium 13.0 H Total Bilirubin 3.0 H AST 73 H LD Total 410 H Creatine Kinase 402 H Creatine Kinase Index 2.3 CK-MB (CK-2) 9.174 H CK-MB (CK-2) Rel Index Troponin I < 0.02 Total Protein 8.4 H Albumin 3.4 Blood Type Antibody Screen 03/24/17 03/24/17 03/24/17 13:35 13:35 14:26 WBC RBC Hgb Hct MCV MCHC RDW Plt Count MPV Neutrophils % Lymphocytes % Monocytes % Eosinophils % Basophils % INR Sodium Potassium Chloride BUN Creatinine Creat Clearance w eGFR Random Glucose Calcium Total Bilirubin AST LD Total Creatine Kinase Creatine Kinase Index CK-MB (CK-2) CK-MB (CK-2) Rel Index Cancelled Troponin I Total Protein Albumin Blood Type O POSITIVE O POSITIVE Antibody Screen Negative ASSESSMENT/PLAN: This 41 yr old male presents from [facility] while undergoing treatment for alcohol withdrawal and it was noted that he had light pink hematuria and mucosal oral bleeding 1. thrombocytopenia -platelets noted to be 6 -fall precautions -2 un platelets ordered with a repeat plt draw at 11 pm tonight -no razors, no injections or punctures unless necessary -Sarah olivares consult placed 2 Alcohol withdrawal -on to valium PRN ordered -will watch for withdrawal symptoms 3. pancytopenia -place in reverse isolation -monitor for fever, signs of infection 4. elevated creatitine -noted to be consistent in past visits. Visit type - Emergency Visit Emergency Visit: Yes Care time: The patient presented to the Emergency Department on the above date and was hospitalized for further evaluation of their emergent condition. - New Patient This patient is new to me today: Yes Date on this admission: 03/24/17 - Critical Care Critical Care patient: No
[2017-03-24 16:51] LABS: ALK PHOS 227 U/L (45-117); ANION GAP 10 (8-16); CO2 27 mmol/L (21-32); SGPT/ALT 44 U/L (12-78)
[2017-03-24] MEDS ORDERED: diazePAM 5 MG TABLET PO PRN (16:56)
[2017-03-25 02:16] LABS: BASOPHIL 1.8 % (0-2.0); EOSINOPHIL 3.8 % (0-4.5); MCH 29.5 pg (25.7-33.7); MCHC 33.1 g/dl (32.0-35.9); MEAN PLT VOLUME 11.3 fl (7.5-11.1); NEUTROPHILS 58.7 % (42.8-82.8); RDW 14.6 % (11.9-15.9); WHITE BLOOD COUNT 2.3 K/mm3 (4.0-10.0)
[2017-03-25 02:17] LABS: PLATELET COUNT 5 K/MM3 (134-434)
[2017-03-25 07:56] LABS: MCHC 33.7 g/dl (32.0-35.9); MEAN CELL VOLUME 88.8 fl (80-96); MEAN PLT VOLUME 8.5 fl (7.5-11.1); RDW 15.2 % (11.9-15.9)
[2017-03-25 08:01] LABS: PLATELET COUNT 11 K/MM3 (134-434); WHITE BLOOD COUNT 2.2 K/mm3 (4.0-10.0)
[2017-03-25 08:29] LABS: INR 1.09 (0.82-1.09)
[2017-03-25 08:32] LABS: ACTIVATED PTT 37.2 SECONDS (26.9-34.4)
[2017-03-25 09:02] LABS: CHOLESTEROL 130 mg/dL (50-200); LDL CHOLESTEROL (ONLY SJRH) 78 mg/dL (5-100)
[2017-03-25 09:04] LABS: ALBUMIN 3.4 g/dl (3.4-5.0); BILIRUBIN,TOTAL 3.1 mg/dL (0.2-1.0); CALCIUM 12.5 mg/dL (8.5-10.1); COCKROFT - GAULT 43.79; CREATININE 1.8 mg/dL (0.7-1.3); MAGNESIUM 1.6 mg/dL (1.8-2.4); PHOSPHOROUS 4.2 mg/dL (2.5-4.9); TOT PROT 7.9 g/dl (6.4-8.2)
[2017-03-25 09:57] LABS: PLATELET ESTIMATE MARKEDLY DECREASED (NORMAL)
[2017-03-25] MEDS: NICOTINE 21 MG/24 HOURS TOPICAL PATCH TD SCH ×2 (10:10→10:11)
[2017-03-25] MEDS: THIAMINE HCL 100 MG TABLET (FP) PO SCH (10:10)
[2017-03-25] MEDS: MULTIVITAMINS (DAILY MVI) TABLET (FP) PO SCH (10:10)
[2017-03-25] MEDS ORDERED: MAGNESIUM SULF 50% (8.12 MEQ/2 ML-1 GM VIAL) IVPB ONE (10:30)
--- NOTE | 2017-03-25 18:12 | PN ---
Physical Exam: SUBJECTIVE: Patient seen and examined. He denies further hematuria or gum bleeding. Denies withdrawal sx. Said he drank ~half a pint of E&J daily. OBJECTIVE: Vital Signs Period Temp Pulse Resp BP Sys/Humphrey Pulse Ox Last 24 Hr 98.1 F-99.1 F 81-85 18-20 108-131/70-82 92-97 PE Neuro: alert, awake, cn 2-12intact Heent: Dried blood to gum, L lip scab Pulm: CTAB CV: s1 s2 rrr no mrg Abd: mid abd incision scar healed, s nt nd + bs Ext: warm, no le edema Laboratory Results - last 24 hr 03/25/17 03/25/17 03/25/17 01:30 05:38 05:38 WBC 2.3 L RBC 3.35 L Hgb 9.9 L D Hct 29.8 L D MCV 89.0 MCHC 33.1 RDW 14.6 Plt Count 5 L* MPV 11.3 H D Neutrophils % 58.7 Lymphocytes % 15.4 Monocytes % 20.3 H Eosinophils % 3.8 Basophils % 1.8 Differential Comment Platelet Estimate INR 1.09 PTT (Actin FS) 37.2 H Sodium 137 Potassium 4.1 Chloride 101 Carbon Dioxide 28 Anion Gap 8 BUN 17 Creatinine 1.8 H Creat Clearance w eGFR 41.39 Random Glucose 68 L Calcium 12.5 H Phosphorus 4.2 Magnesium 1.6 L Total Bilirubin 3.1 H AST 68 H ALT 41 Alkaline Phosphatase 214 H B-Natriuretic Peptide 171.96 H Total Protein 7.9 Albumin 3.4 Triglycerides Cholesterol Total LDL Cholesterol HDL Cholesterol Total Amylase 142 H Lipase 186 03/25/17 03/25/17 05:38 05:38 WBC 2.2 L RBC 3.27 L Hgb 9.8 L Hct 29.1 L MCV 88.8 MCHC 33.7 RDW 15.2 Plt Count 11 L* D MPV 8.5 D Neutrophils % 73.0 D Lymphocytes % 16.0 Monocytes % 10.0 Eosinophils % 1.0 Basophils % Differential Comment Manual diff done Platelet Estimate Markedly decreased INR PTT (Actin FS) Sodium Potassium Chloride Carbon Dioxide Anion Gap BUN Creatinine Creat Clearance w eGFR Random Glucose Calcium Phosphorus Magnesium Total Bilirubin AST ALT Alkaline Phosphatase B-Natriuretic Peptide Total Protein Albumin Triglycerides 145 Cholesterol 130 Total LDL Cholesterol 78 HDL Cholesterol 46 Total Amylase Lipase Active Medications Generic Name Dose Route Start Last Admin Trade Name Joseq PRN Reason Stop Dose Admin Diazepam 5 mg 03/24/17 16:56 Valium - PO 03/27/17 16:55 TID PRN ANXIETY Multivitamins/Minerals/Vitamin C 1 tab 03/25/17 10:00 03/25/17 10:10 Tab-A-Vit - PO 1 tab DAILY DEB Administration Nicotine 21 mg 03/25/17 10:00 03/25/17 10:11 Nicoderm Patch - TD Not Given DAILY DEB Thiamine HCl 100 mg 03/25/17 10:00 03/25/17 10:10 Vitamin B1 - PO 100 mg DAILY DEB Administration Assessment: 41 year old male with hx of diverticulitis ?sub total colectomy sent over from [facility] for ETOH abuse admitted with thrombocytopenia, hematuria, pancytopenia. Plan: 1. Thrombocytopenia - Transfused 2 units platelets 03/24 - Recheck level now - CTAP r/o malignancy, cirrhosis 2. R/o Malignant malignancy - With elevated calcium levels - Check SPEP, UPEP, LDH, uric acid, PT, PTT, INR, Fibrinogen, ESR, CRP, HIV, PTH , PTHr - Check UA - A/G ratio 1.47 - Discussed with heme 3. Hypercalcemia - Start NS @125cc/hr 4. ETOH abuse - No active signs of withdrawal - Valium PRN - Daily thiamine/MVI 5. CKD - Check UA 6. Hypomagnesemia - Replete mg 2gm x1 Visit type - Emergency Visit Emergency Visit: Yes ED Registration Date: 03/24/17 Care time: The patient presented to the Emergency Department on the above date and was hospitalized for further evaluation of their emergent condition. - New Patient This patient is new to me today: Yes Date on this admission: 03/25/17 - Critical Care Critical Care patient: No
[2017-03-25] MEDS ORDERED: SODIUM CHLORIDE 1,000 ML IV SCH (19:15)
[2017-03-25 19:46] LABS: MCH 29.2 pg (25.7-33.7); MCHC 32.6 g/dl (32.0-35.9); MEAN CELL VOLUME 89.5 fl (80-96); RDW 14.9 % (11.9-15.9); WHITE BLOOD COUNT 2.5 K/mm3 (4.0-10.0)
[2017-03-25] MEDS ORDERED: ALLOPURINOL 300 MG TABLET (FP) PO ONE (20:25)
--- NOTE | 2017-03-25 20:29 | HOSP ---
Subjective - Review of Symptoms Events since last encounter: call from RN, pt with plt count 5. Subjective: Pt denies further gum bleeding, hematuria or any other bleeding. Physical Examination Vital Signs: Vital Signs Temperature 98.9 F 03/25/17 18:00 Pulse Rate 82 03/25/17 18:00 Respiratory Rate 20 03/25/17 18:00 Blood Pressure 122/71 03/25/17 18:00 O2 Sat by Pulse Oximetry (%) 97 03/25/17 10:00 Labs: CBC, BMP 03/25/17 19:30 03/25/17 05:38 Hospitalist Encounter Assessment: Thrombocytopenia - DW Dr. Carney who recommends allopurinol 300mg (CrCl 43), increase IVF to 150cc/hr and give 1u Plts - continue plan for CT DANIA
[2017-03-25 21:08] LABS: PLATELET COUNT 5 K/MM3 (134-434)
[2017-03-25 21:09] LABS: PLATELET ESTIMATE MARKEDLY DECREASED (NORMAL)
[2017-03-25] MEDS: SODIUM CHLORIDE 1,000 ML IV SCH (21:19)
--- NOTE | 2017-03-25 21:22 | CONSULT ---
Consult - text type - Consultation Consultation Note: 41-year-old male sent over from [facility] where he is being treated for alcohol abuse presents with bleeding gums and hematuria . as per patient he was admitted there yesterday and was noted to have the above mentioned history . Patient denies chest pain, shortness of breath, blood in stool, abdominal distention, headache, dizziness, recent fall, or recent illness. no fever/chills /wt. loss/night sweats reports feeling we;; - Past Medical History Anemia Asthma Crohns disease h/o bleeding /epistaxis 2yrs. ago treated at [facility] Allergies/Adverse Reactions: Allergies Allergy/AdvReac Type Severity Reaction Status Date / Time aspirin Allergy Intermediate Rash Verified 03/22/17 12:28 Penicillins Allergy Hives Verified 03/22/17 12:28 milk AdvReac DIARRHEA Verified 03/22/17 12:28 Home Medications: Ambulatory Orders Zolpidem Tartrate [Ambien] 10 mg PO HS 05/08/16 PSH Abdominal Surgery: Yes (Partial removal of Colon due to Crohn's Disease in 2004. ) - Psycho/Social/Smoking Cessation Hx Smoking History: Current every day smoker + alcohol abuse Last Vital Signs Temp Pulse Resp BP Pulse Ox 98.9 F 82 20 122/71 97 03/25/17 18:00 03/25/17 18:00 03/25/17 18:00 03/25/17 18:00 03/25/17 10:00 cachectic Cor: RSR, No murmurs, No gallops Lungs: Clear to P&A Abd: Soft, Normal bowel sounds, No organomegaly Ext:No significant edema Skin: No rashes, Integument intact no discrete lymphadenopathy Active Medications Generic Name Dose Route Start Last Admin Trade Name Freq PRN Reason Stop Dose Admin Diazepam 5 mg 03/24/17 16:56 Valium - PO 03/27/17 16:55 TID PRN ANXIETY Sodium Chloride 1,000 mls @ 150 mls/hr 03/25/17 20:26 03/25/17 21:19 Normal Saline - IV 150 mls/hr ASDIR DEB Administration Multivitamins/Minerals/Vitamin C 1 tab 03/25/17 10:00 03/25/17 10:10 Tab-A-Vit - PO 1 tab DAILY DEB Administration Nicotine 21 mg 03/25/17 10:00 03/25/17 10:11 Nicoderm Patch - TD Not Given DAILY DEB Thiamine HCl 100 mg 03/25/17 10:00 03/25/17 10:10 Vitamin B1 - PO 100 mg DAILY DEB Administration A?P 41 y/o patient with alcohol abuse, severe pancytopenia , thrombocytopenia. Patient reports h/o epistaxis 2 yrs. ago, treated with steroids at [facility] He presented with hematuria and bleeding gums which have since resolved Also noted to have hypercalcemia, elevated LDH r/o occult lymphoproliferative disorder r/o viral illnessess r/o autoimmune disease possible ITp patient refusing HIV testing ---consider ID consut for counselling will chek flow/CT scans start allopurinol/hydration for tumpr lusis prophy and treating hypercalcemis f/u scans discussed about steroids== 1mg/kg-- 60 mg of prednisone or equivalent medrol, IVIG--400mg/ks---23 grams IVPB over 8hrs. every day for 5 doses monitor renal function continue hydration platelt transfusion will follow
[2017-03-25 21:26] LABS: URINE APPEARANCE CLEAR; URINE BILIRUBIN NEGATIVE (NEGATIVE); URINE COLOR LTYELLOW; URINE GLUCOSE (UA) NEGATIVE (NEGATIVE); URINE KETONE NEGATIVE (NEGATIVE); URINE NITRITE NEGATIVE (NEGATIVE); URINE PROTEIN NEGATIVE (NEGATIVE); URINE UROBILINOGEN NEGATIVE E.U./dl (0.2-1.0)
[2017-03-25 21:31] LABS: URINE BLOOD 3+ (NEGATIVE); URINE LEUK ESTERASE TRACE (NEGATIVE)
[2017-03-25 21:41] LABS: URINE BACTERIA RARE /hpf (NONE SEEN); URINE MUCUS RARE; URINE RBC 78 /hpf (0-3); URINE WBC 17 /hpf (3-5)
[2017-03-26 06:46] LABS: BASOPHIL 1.3 % (0-2.0); EOSINOPHIL 3.2 % (0-4.5); MCH 29.9 pg (25.7-33.7); MCHC 33.5 g/dl (32.0-35.9); MEAN PLT VOLUME 9.3 fl (7.5-11.1); NEUTROPHILS 63.7 % (42.8-82.8); RDW 14.5 % (11.9-15.9)
[2017-03-26 06:51] LABS: COCKROFT - GAULT 43.79; CREATININE 1.8 mg/dL (0.7-1.3); URIC ACID 7.2 mg/dL (2.6-7.2)
[2017-03-26 06:54] LABS: ALBUMIN 3.1 g/dl (3.4-5.0); BILIRUBIN,TOTAL 3.1 mg/dL (0.2-1.0); C-REACTIVE PROTEIN 0.6 MG/DL (0.00-0.3); CALCIUM 11.7 mg/dL (8.5-10.1); TOT PROT 7.6 g/dl (6.4-8.2)
[2017-03-26 07:00] LABS: THYROID STIMULATING HORMONE 1.79 uIU/ml (0.358-3.74)
[2017-03-26 07:32] LABS: WHITE BLOOD COUNT 1.7 K/mm3 (4.0-10.0)
[2017-03-26 07:33] LABS: PLATELET COUNT 4 K/MM3 (134-434)
[2017-03-26] MEDS ORDERED: IMMUNE GLOBULIN (IgG) 10 GM VIAL IVPB SCH ×3 (07:49→08:00)
[2017-03-26] MEDS ORDERED: methylPREDNISolone NA SUCC 40 MG/1 ML VIAL IVPB ONE (08:00)
[2017-03-26] MEDS ORDERED: ACETAMINOPHEN 325 MG TABLET (FP) PO SCH (08:00)
[2017-03-26] MEDS ORDERED: methylPREDNISolone NA SUCC 40 MG/1 ML VIAL IVPB SCH (08:00)
[2017-03-26] MEDS ORDERED: ACETAMINOPHEN 325 MG TABLET (FP) PO ONE (08:00)
[2017-03-26] MEDS: IMMUNE GLOB,GAM CAPRYLATE(IGG) 20 GM IVPB SCH (08:45)
[2017-03-26] MEDS: ACETAMINOPHEN 325 MG TABLET (FP) PO SCH (09:31)
[2017-03-26] MEDS: methylPREDNISolone NA SUCC 40 MG/1 ML VIAL IVPB SCH (09:31)
[2017-03-26] MEDS: THIAMINE HCL 100 MG TABLET (FP) PO SCH (09:48)
[2017-03-26] MEDS: MULTIVITAMINS (DAILY MVI) TABLET (FP) PO SCH (09:48)
[2017-03-26] MEDS: NICOTINE 21 MG/24 HOURS TOPICAL PATCH TD SCH (09:48)
--- NOTE | 2017-03-26 11:09 | PN ---
Physical Exam: SUBJECTIVE: Patient seen and examined. He has no acute complaints. Denies CP, fever, chills, bleeding. He denies IVDU. Events: - 2 units plts given - Allopurinol 300mg x1 Tumor lysis ppx OBJECTIVE: Vital Signs Period Temp Pulse Resp BP Sys/Humphrey Pulse Ox Last 24 Hr 98.2 F-98.9 F 72-85 18-20 109-136/57-75 96 PE Neuro: alert, awake, cn 2-12intact Heent: Dried blood to gum, L lip scab Pulm: CTAB CV: s1 s2 rrr no mrg Abd: mid abd incision scar healed, s nt nd + bs Ext: warm, no le edema Skin: right shoulder hematoma CBCD WBC 1.7 K/mm3 (4.0-10.0) L* D 03/26/17 05:35 RBC 3.27 M/mm3 (4.00-5.60) L 03/26/17 05:35 Hgb 9.8 GM/dL (11.7-16.9) L 03/26/17 05:35 Hct 29.1 % (35.4-49) L 03/26/17 05:35 MCV 89.0 fl (80-96) 03/26/17 05:35 MCHC 33.5 g/dl (32.0-35.9) 03/26/17 05:35 RDW 14.5 % (11.9-15.9) 03/26/17 05:35 Plt Count 4 K/MM3 (134-434) L* 03/26/17 05:35 MPV 9.3 fl (7.5-11.1) D 03/26/17 05:35 CMP Sodium 138 mmol/L (136-145) 03/26/17 05:35 Potassium 4.1 mmol/L (3.5-5.1) 03/26/17 05:35 Chloride 101 mmol/L (98-107) 03/26/17 05:35 Carbon Dioxide 28 mmol/L (21-32) 03/26/17 05:35 Anion Gap 9 (8-16) 03/26/17 05:35 BUN 16 mg/dL (7-18) 03/26/17 05:35 Creatinine 1.8 mg/dL (0.7-1.3) H 03/26/17 05:35 Creat Clearance w eGFR 41.39 (>60) 03/26/17 05:35 Calcium 11.7 mg/dL (8.5-10.1) H 03/26/17 05:35 Total Bilirubin 3.1 mg/dL (0.2-1.0) H 03/26/17 05:35 AST 61 U/L (15-37) H 03/26/17 05:35 ALT 39 U/L (12-78) 03/26/17 05:35 Alkaline Phosphatase 220 U/L (45-117) H 03/26/17 05:35 Total Protein 7.6 g/dl (6.4-8.2) 03/26/17 05:35 Albumin 3.1 g/dl (3.4-5.0) L 03/26/17 05:35 Laboratory Tests 03/26/17 03/26/17 03/26/17 05:35 05:35 05:35 ESR 50 H Retic Count INR 1.12 PTT (Actin FS) 38.1 H Fibrinogen 262.0 Iron TIBC Iron Saturation Ferritin LD Total 355 H C-Reactive Protein 0.6 H TSH 1.79 PTH Intact PTH Related Protein Urine Total Protein Urine PEP Interpret IgG IgA IgM TERRY M-Toby Rheumatoid Factor JOSE Screen Hep Bs Antigen Hep Bs Ab Concentration Hep B Core Total Ab Hep B Core IgM Ab Hepatitis Be Antibody Hepatitis Be Antigen 03/26/17 03/26/17 03/26/17 05:35 05:35 05:35 ESR Retic Count INR PTT (Actin FS) Fibrinogen Iron Pending TIBC Pending Iron Saturation Pending Ferritin LD Total C-Reactive Protein TSH PTH Intact Pending PTH Related Protein Urine Total Protein Pending Urine PEP Interpret Pending IgG Pending IgA Pending IgM Pending TERRY M-Toby Pending Rheumatoid Factor JOSE Screen Pending Hep Bs Antigen Pending Hep Bs Ab Concentration Pending Hep B Core Total Ab Pending Hep B Core IgM Ab Pending Hepatitis Be Antibody Pending Hepatitis Be Antigen Pending 03/26/17 03/26/17 03/26/17 05:35 05:35 05:35 ESR Retic Count 1.15 INR PTT (Actin FS) Fibrinogen Iron TIBC Iron Saturation Ferritin 185.440 LD Total C-Reactive Protein TSH PTH Intact PTH Related Protein Urine Total Protein Urine PEP Interpret IgG IgA IgM TERRY M-Toby Rheumatoid Factor < 10.0 JOSE Screen Hep Bs Antigen Hep Bs Ab Concentration Hep B Core Total Ab Hep B Core IgM Ab Hepatitis Be Antibody Hepatitis Be Antigen 03/26/17 08:20 ESR Retic Count INR PTT (Actin FS) Fibrinogen Iron TIBC Iron Saturation Ferritin LD Total C-Reactive Protein TSH PTH Intact PTH Related Protein Pending Urine Total Protein Urine PEP Interpret IgG IgA IgM TERRY M-Toby Rheumatoid Factor JOSE Screen Hep Bs Antigen Hep Bs Ab Concentration Hep B Core Total Ab Hep B Core IgM Ab Hepatitis Be Antibody Hepatitis Be Antigen Active Medications Generic Name Dose Route Start Last Admin Trade Name Freq PRN Reason Stop Dose Admin Acetaminophen 650 mg 03/26/17 08:08 03/26/17 09:31 Tylenol - PO 03/30/17 09:31 Not Given DAILY@0930 [facility] Diazepam 5 mg 03/24/17 16:56 Valium - PO 03/27/17 16:55 TID PRN ANXIETY Diphenhydramine HCl 25 mg 03/26/17 08:08 03/26/17 09:31 Benadryl Injection - IVPB 03/30/17 09:31 Not Given DAILY@0930 [facility] Sodium Chloride 1,000 mls @ 150 mls/hr 03/25/17 20:26 03/25/17 21:19 Normal Saline - IV 150 mls/hr ASDIR DEB Administration Immune Globulin 200 mls @ 25 mls/hr 03/26/17 08:30 03/26/17 08:45 Gamunex-C IVPB 03/30/17 10:01 25 mls/hr DAILY DEB Administration Methylprednisolone Sodium Succinate 60 mg 03/26/17 08:09 03/26/17 09:31 Solu-Medrol - IVPB 03/30/17 09:31 Not Given DAILY@0930 [facility] Multivitamins/Minerals/Vitamin C 1 tab 03/25/17 10:00 03/26/17 09:48 Tab-A-Vit - PO 1 tab DAILY DEB Administration Nicotine 21 mg 03/25/17 10:00 03/26/17 09:48 Nicoderm Patch - TD Not Given DAILY [facility] Thiamine HCl 100 mg 03/25/17 10:00 03/26/17 09:48 Vitamin B1 - PO 100 mg DAILY DEB Administration Assessment: 41 year old male with hx of diverticulitis ?sub total colectomy sent over from [facility] for ETOH abuse admitted with thrombocytopenia, hematuria, pancytopenia. 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 R/o Malignant malignancy - Above blood work pending - Elevated ESR, CRP, fibrinogen wnl - A/G ratio 1.47 - Discussed with heme 3. Hypercalcemia - Corrected ca 12.42 - Continue NS @150cc/hr 4. ETOH abuse - No active signs of withdrawal - Valium PRN - Daily thiamine/MVI 5. CKD - UA negative for protein or glucose, could be from ETOH abuse - Trend cr 6. Microscopic hematuria - Secondary to thrombocytopenia - Outpt work up once dc - Will repeat UA prior to discharge Visit type - Emergency Visit Emergency Visit: Yes ED Registration Date: 03/24/17 Care time: The patient presented to the Emergency Department on the above date and was hospitalized for further evaluation of their emergent condition. - New Patient This patient is new to me today: No - Critical Care Critical Care patient: No
[2017-03-26] MEDS: ALLOPURINOL 300 MG TABLET (FP) PO SCH (18:51)
[2017-03-26] MEDS: SODIUM CHLORIDE 1,000 ML IV SCH (21:37)
--- NOTE | 2017-03-26 22:31 | PN ---
Progress Note (short form) - Note Progress Note: Patient seen and examined Denies any complaints AFVSS Cor: RSR, No murmurs, No gallops Lungs: Clear to P&A Abd: Soft, Normal bowel sounds, No organomegaly Ext:No significant edema Abnormal Lab Results 03/29/17 03/29/17 06:00 06:00 RBC 3.04 L Hgb 9.1 L Hct 27.2 L Plt Count 41 L D Neutrophils % 89.1 H Lymphocytes % 7.0 L D Monocytes % 3.7 L D BUN 19 H D Calcium 11.8 H Total Bilirubin 1.5 H AST 49 H Alkaline Phosphatase 198 H Albumin 2.9 L Home Medication List Medication Instructions Recorded Confirmed Type Zolpidem Tartrate [Ambien] 10 mg PO HS 05/08/16 03/24/17 History Active Medications Generic Name Dose Route Start Last Admin Trade Name Freq PRN Reason Stop Dose Admin Acetaminophen 650 mg 03/26/17 08:08 03/29/17 10:01 Tylenol - PO 03/30/17 09:31 650 mg DAILY@0930 DEB Administration Dexamethasone 40 mg 03/28/17 10:00 03/29/17 10:03 Decadron - PO 03/30/17 10:01 40 mg DAILY EDB Administration Diphenhydramine HCl 25 mg 03/26/17 08:08 03/29/17 10:02 Benadryl Injection - IVPB 03/30/17 09:31 25 mg DAILY@0930 DEB Administration Immune Globulin 200 mls @ 25 mls/hr 03/26/17 08:30 03/29/17 10:45 Gamunex-C IVPB 03/30/17 10:01 25 mls/hr DAILY DBE Administration Sodium Chloride 1,000 mls @ 75 mls/hr 03/27/17 15:02 03/29/17 11:45 Normal Saline - IV 75 mls/hr ASDIR DEB Administration Multivitamins/Minerals/Vitamin C 1 tab 03/25/17 10:00 03/29/17 11:46 Tab-A-Vit - PO 1 tab DAILY DEB Administration Nicotine 21 mg 03/25/17 10:00 03/29/17 11:49 Nicoderm Patch - TD Not Given DAILY DEB Pantoprazole Sodium 40 mg 03/27/17 18:15 03/29/17 11:46 Protonix - PO 40 mg DAILY DEB Administration Thiamine HCl 100 mg 03/25/17 10:00 03/29/17 11:46 Vitamin B1 - PO 100 mg DAILY DEB Administration Trimethoprim/Sulfamethoxazole 1 each 03/28/17 12:45 03/29/17 11:46 Bactrim Ds - PO 04/02/17 12:44 1 each BID DEB Administration A/P 41 y/o patient with alcohol abuse, with severe thrombocytopenia, leukopenia started steroids/ivig check hiv/ct chest ct a/p unremarkable
[2017-03-27 07:08] LABS: BASOPHIL 0.9 % (0-2.0); EOSINOPHIL 1.1 % (0-4.5); MCH 30.1 pg (25.7-33.7); MCHC 33.8 g/dl (32.0-35.9); MEAN PLT VOLUME 10.9 fl (7.5-11.1); NEUTROPHILS 70.6 % (42.8-82.8); RDW 14.9 % (11.9-15.9); WHITE BLOOD COUNT 2.1 K/mm3 (4.0-10.0)
[2017-03-27 07:34] LABS: ALBUMIN 2.8 g/dl (3.4-5.0); CALCIUM 10.9 mg/dL (8.5-10.1)
[2017-03-27 07:38] LABS: BILIRUBIN,TOTAL 2.1 mg/dL (0.2-1.0); COCKROFT - GAULT 49.26; CREATININE 1.6 mg/dL (0.7-1.3); TOT PROT 7.1 g/dl (6.4-8.2); URIC ACID 5.2 mg/dL (2.6-7.2)
[2017-03-27 07:50] LABS: PLATELET COUNT 4 K/MM3 (134-434)
[2017-03-27 08:09] LABS: IGG IMMUNOGLOBULIN 2070 mg/dL (700-1600); IGM IMMUNOGLOBULIN 196 mg/dL (20-172); SERUM IRON 58 ug/dL (38-169); TOTAL IRON BINDING CAPACITY 275 ug/dL (250-450); UIBC 217 ug/dL (111-343)
[2017-03-27] MEDS: ACETAMINOPHEN 325 MG TABLET (FP) PO SCH (09:35)
[2017-03-27] MEDS: NICOTINE 21 MG/24 HOURS TOPICAL PATCH TD SCH (09:36)
[2017-03-27] MEDS: methylPREDNISolone NA SUCC 40 MG/1 ML VIAL IVPB SCH (09:36)
[2017-03-27] MEDS: ALLOPURINOL 300 MG TABLET (FP) PO SCH (09:37)
[2017-03-27] MEDS: THIAMINE HCL 100 MG TABLET (FP) PO SCH (09:37)
[2017-03-27] MEDS: MULTIVITAMINS (DAILY MVI) TABLET (FP) PO SCH (10:10)
[2017-03-27] MEDS: IMMUNE GLOB,GAM CAPRYLATE(IGG) 20 GM IVPB SCH (10:11)
[2017-03-27 10:12] LABS: HEMATOCRIT 27.8 % (37.5-51.0)
[2017-03-27 12:39] LABS: HIV 1 & 2 AB NEGATIVE; HIV 1 AGp24 NEGATIVE
--- NOTE | 2017-03-27 15:02 | PN ---
Physical Exam: SUBJECTIVE: Patient seen and examined. He has no acute complaints, he is feeling tired and wants to sleep. No SOB, or bleeding OBJECTIVE: Vital Signs Period Temp Pulse Resp BP Sys/Humphrey Pulse Ox Last 24 Hr 97.6 F-98.6 F 60-77 18-20 113-135/55-81 95-98 PE Neuro: alert, awake, cn 2-12intact Heent: L lip scab Pulm: CTAB CV: s1 s2 rrr no mrg Abd: mid abd incision scar healed, s nt nd + bs Ext: warm, no le edema Skin: right shoulder hematoma Laboratory Results - last 24 hr 03/26/17 03/26/17 03/26/17 05:35 05:35 05:35 WBC RBC Hgb Hct MCV MCHC RDW Plt Count MPV Neutrophils % Lymphocytes % Monocytes % Eosinophils % Basophils % Sodium Potassium Chloride Carbon Dioxide Anion Gap BUN Creatinine Creat Clearance w eGFR Random Glucose Uric Acid Calcium Iron 58 TIBC 275 Iron Saturation 21 Total Bilirubin AST ALT Alkaline Phosphatase LD Total Total Protein Albumin Rxjwj-5-Dxilzaxrn (%) Cancelled Zllat-9-Bxgqwtyyy (%) Cancelled Beta Globulins (%) Cancelled Gamma Globulins (%) Cancelled M-Toby % Cancelled Folate Folate Hemolysate PTH Intact 10 L IgG 2070 H IgA 539 H IgM 196 H HIV 1&2 Antibody Screen HIV P24 Antigen Ref Test Comments Cancelled 03/26/17 03/27/17 03/27/17 05:35 06:00 06:00 WBC 2.1 L RBC 2.89 L Hgb 8.7 L D Hct 27.8 L 25.7 L MCV 89.0 MCHC 33.8 RDW 14.9 Plt Count 4 L* MPV 10.9 D Neutrophils % 70.6 Lymphocytes % 14.0 Monocytes % 13.4 H Eosinophils % 1.1 Basophils % 0.9 Sodium 140 Potassium 3.9 Chloride 108 H Carbon Dioxide 27 Anion Gap 5 L BUN 18 Creatinine 1.6 H Creat Clearance w eGFR 47.41 Random Glucose 82 Uric Acid 5.2 D Calcium 10.9 H Iron TIBC Iron Saturation Total Bilirubin 2.1 H D AST 56 H ALT 36 Alkaline Phosphatase 201 H LD Total 337 H Total Protein 7.1 Albumin 2.8 L Sjepx-2-Aonuxutuy (%) Mieex-1-Bcnezrvcz (%) Beta Globulins (%) Gamma Globulins (%) M-Toby % Folate 1379 Folate Hemolysate 383.4 PTH Intact IgG IgA IgM HIV 1&2 Antibody Screen HIV P24 Antigen Ref Test Comments 03/27/17 06:00 HIV 1&2 Antibody Screen Negative HIV P24 Antigen Negative Active Medications Generic Name Dose Route Start Last Admin Trade Name Freq PRN Reason Stop Dose Admin Acetaminophen 650 mg 03/26/17 08:08 03/27/17 09:35 Tylenol - PO 03/30/17 09:31 650 mg DAILY@0930 DEB Administration Allopurinol 300 mg 03/26/17 18:45 03/27/17 09:37 Zyloprim - PO 300 mg DAILY DEB Administration Diazepam 5 mg 03/24/17 16:56 Valium - PO 03/27/17 16:55 TID PRN ANXIETY Diphenhydramine HCl 25 mg 03/26/17 08:08 03/27/17 09:36 Benadryl Injection - IVPB 03/30/17 09:31 25 mg DAILY@0930 DEB Administration Sodium Chloride 1,000 mls @ 150 mls/hr 03/25/17 20:26 03/26/17 21:37 Normal Saline - IV 150 mls/hr ASDIR DEB Administration Immune Globulin 200 mls @ 25 mls/hr 03/26/17 08:30 03/27/17 10:11 Gamunex-C IVPB 03/30/17 10:01 25 mls/hr DAILY DEB Administration Methylprednisolone Sodium Succinate 60 mg 03/26/17 08:09 03/27/17 09:36 Solu-Medrol - IVPB 03/30/17 09:31 60 mg DAILY@0930 DEB Administration Multivitamins/Minerals/Vitamin C 1 tab 03/25/17 10:00 03/27/17 10:10 Tab-A-Vit - PO 1 tab DAILY DEB Administration Nicotine 21 mg 03/25/17 10:00 03/27/17 09:36 Nicoderm Patch - TD Not Given DAILY DEB Thiamine HCl 100 mg 03/25/17 10:00 03/27/17 09:37 Vitamin B1 - PO 100 mg DAILY DEB Administration Microbiology 03/26/17 06:45 Urine - Urine Clean Catch Urine Culture - Preliminary Beta Hem Streptococcus Group C Streptococcus Viridans 03/25/17 22:40 Blood - Peripheral Venous Blood Culture - Preliminary NO GROWTH OBTAINED AFTER 24 HOURS, INCUBATION TO CONTINUE FOR 4 DAYS. 03/25/17 22:40 Blood - Peripheral Venous Blood Culture - Preliminary NO GROWTH OBTAINED AFTER 24 HOURS, INCUBATION TO CONTINUE FOR 4 DAYS. Imaging: - CTAP non contrast shows 2cm calcified lymph node, hepatosplenomegaly Assessment: 41 year old male with hx of diverticulitis ?sub total colectomy sent over from [facility] for ETOH abuse admitted with thrombocytopenia, hematuria, pancytopenia. 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 Plan: 1. 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 R/o Malignant malignancy - Above blood work pending - A/G ratio 1.47 3. Hypercalcemia - Corrected ca 11.86 - Decrease NS @75cc/hr 4. ETOH abuse - No active signs of withdrawal - Valium PRN - Daily thiamine/MVI 5. CKD - UA negative for protein or glucose, could be from ETOH abuse - Trend cr 6. Microscopic hematuria - Secondary to thrombocytopenia - Outpt work up once dc - Will repeat UA prior to discharge 7. UTI - Urine cx above - Will await final speciation as no fever, chills, dysuria, UA with trace LE Visit type - Emergency Visit Emergency Visit: Yes ED Registration Date: 03/24/17 Care time: The patient presented to the Emergency Department on the above date and was hospitalized for further evaluation of their emergent condition. - New Patient This patient is new to me today: No - Critical Care Critical Care patient: No
[2017-03-27] MEDS: SODIUM CHLORIDE 1,000 ML IV SCH ×2 (15:30→22:27)
--- NOTE | 2017-03-27 15:36 | PATH ---
Surgical Pathology Report Patient Name: RUSTAM DOTSON Med. Rec. #: [id number] /Age/Gender: 1975 (Age: 41) / M Account: [id number] Location: [facility] PEDS/ADOL Taken: 03/26/2017 Received: 03/26/2017 Reported: 03/27/2017 Physicians: Angelika Sheriff M.D. Specimen(s) Received PERIPHERAL BLOOD 2 GREEN TOPS Clinical History Rule out lymphoproliferative disorder, rule out plasma cell dyscrasia Final Diagnosis FLOW CYTOMETRY PERFORMED AND INTERPRETED AT [facility] [place] ([id number]) SHOWED THE FOLLOWING: Interpretation: NO CLONAL LYMPHOID EXPANSION DEFECTED. Phenotype: Lymphocytes include polyclonal B-cells, NK-cells and immunophenotypically normal T-cells with a decreased CD4:CD8. Very rare polytypic CD38+ plasma cells are detected, representing 0.1% of WBCs. Cytomorphology: Smears from flow sample show no increase in myeloblasts or atypical lymphocytes. Electronically Signed Josias Mora M.D. Gross Description Received are 2 green top tubes of peripheral blood which are sent [facility]. DL/03/26/2017 saudi/03/26/2017
--- NOTE | 2017-03-27 16:15 | CON.PULM ---
Consult Consult Specialty:: PULM/CCM Referred by:: JHOAN Reason for Consultation:: R/O Sarcoidosis - History of Present Illness Chief Complaint: gum bleeding History of Present Illness: 41 M, sent from the [facility] detox program where he is being treated for alcohol abuse. He developed acute onset of gum bleeding and hematuria. Patient reports that about 8 to 9 years ago he was admitted to the [facility] for refractory epistaxis. He reports that he may have been told that he sarcoidosis and was started on daily pills which he choose to stop on his own as he was feeling better. He is not sure, but he thinks he may have had a biopsy of the nasal mucosa at that time as well. He was born and raised in [place]. He has never liked outside of this area. He has never been in contact with someone with TB. He works for the [employer]. No travel history or sick contacts. No fever or chills. No fever or chills. No hemoptysis. - History Source History Provided By: Patient Limitations to Obtaining History: Poor Historian - Alcohol/Substance Use Hx Alcohol Use: Yes - Smoking History Smoking history: Current every day smoker Have you smoked in the past 12 months: Yes Aproximately how many cigarettes per day: 2 If you are a former smoker, when did you quit?: 12 MONTHS Home Medications - Allergies Allergies/Adverse Reactions: Allergies Allergy/AdvReac Type Severity Reaction Status Date / Time aspirin Allergy Intermediate Rash Verified 03/22/17 12:28 Penicillins Allergy Hives Verified 03/22/17 12:28 milk AdvReac DIARRHEA Verified 03/22/17 12:28 - Home Medications Home Medications: Ambulatory Orders Zolpidem Tartrate [Ambien] 10 mg PO HS 05/08/16 Family Disease History - Family Disease History Family Disease History: CA: Father (.), Other: Mother (ETOH AND DRUG DEPENDENT), Daughter (Asthma, .) Review of Systems - Review of Systems Constitutional: reports: Malaise. denies: Chills, Fever, Night Sweats, Unintentional Wgt. Loss Eyes: denies: Blind Spots, Blurred Vision, Double Vision, Eye Pain, Floaters, Photophobia, Recent Change in Vision HENT: reports: No Symptoms, Gingival Bleeding Neck: reports: No Symptoms Cardiovascular: denies: Chest Pain, Palpitations, Shortness of Breath Respiratory: denies: Cough, Exercise Intolerance, Hemoptysis, Orthopnea, Snoring , SOB, SOB on Exertion, Wheezing Gastrointestinal: reports: No Symptoms Genitourinary: reports: No Symptoms Breasts: reports: No Symptoms Reported Musculoskeletal: reports: No Symptoms Integumentary: reports: No Symptoms Neurological: reports: No Symptoms Endocrine: reports: No Symptoms Hematology/Lymphatic: reports: No Symptoms Psychiatric: reports: No Symptoms Physical Exam Vital Sings: Vital Signs Temperature 98.6 F 03/27/17 13:50 Pulse Rate 74 03/27/17 13:50 Respiratory Rate 20 03/27/17 13:50 Blood Pressure 135/81 03/27/17 13:50 O2 Sat by Pulse Oximetry (%) 98 03/27/17 09:00 Constitutional: Yes: No Distress, Thin Eyes: Yes: Conjunctiva Clear, EOM Intact HENT: Yes: Atraumatic, Normocephalic Neck: Yes: Supple, Trachea Midline Cardiovascular: Yes: Regular Rate and Rhythm Respiratory: Yes: CTA Bilaterally. No: Accessory Muscle Use, Rales, Rhonchi, SOB, SOB on Exertion, Stridor, Tachypnea, Wheezes ...Inspection: Yes: WNL ...Clubbing: No Gastrointestinal: Yes: WNL, Normal Bowel Sounds, Soft Musculoskeletal: Yes: WNL Extremities: Yes: WNL Edema: No Peripheral Pulses WNL: Yes Integumentary: Yes: WNL Neurological: Yes: WNL, Alert, Oriented ...Motor Strength: WNL Psychiatric: Yes: WNL, Alert, Oriented Labs: CBC, BMP 03/27/17 06:00 03/27/17 06:00 Imaging - Results Chest X-ray: Report Reviewed Cat Scan: Report Reviewed, Image Reviewed Problem List - Problems (1) Alcohol dependence with uncomplicated withdrawal Code(s): F10.230 - ALCOHOL DEPENDENCE WITH WITHDRAWAL, UNCOMPLICATED (2) Decreased platelet count Code(s): D69.6 - THROMBOCYTOPENIA, UNSPECIFIED (3) Neutropenia Code(s): D70.9 - NEUTROPENIA, UNSPECIFIED Qualifiers: Neutropenia type: unspecified Qualified Code(s): D70.9 - Neutropenia, unspecified (4) Acute alcohol dependence syndrome Code(s): F10.20 - ALCOHOL DEPENDENCE, UNCOMPLICATED (5) Marijuana dependence Code(s): F12.20 - CANNABIS DEPENDENCE, UNCOMPLICATED (6) Nicotine dependence Code(s): F17.200 - NICOTINE DEPENDENCE, UNSPECIFIED, UNCOMPLICATED Qualifiers : Nicotine product type: cigarettes Substance use status: uncomplicated Qualified Code(s): F17.210 - Nicotine dependence, cigarettes, uncomplicated (7) Substance induced mood disorder Code(s): F19.94 - OTH PSYCHOACTIVE SUBSTANCE USE, UNSP W MOOD DISORDER (8) Crohns disease Code(s): K50.90 - CROHN'S DISEASE, UNSPECIFIED, WITHOUT COMPLICATIONS Qualifiers: Gastrointestinal tract location: unspecified location Digestive disease complication type: unspecified complication Qualified Code(s): K50.919 - Crohn's disease, unspecified, with unspecified complications (9) GERD (gastroesophageal reflux disease) Code(s): K21.9 - GASTRO-ESOPHAGEAL REFLUX DISEASE WITHOUT ESOPHAGITIS Qualifiers: Esophagitis presence: without esophagitis Qualified Code(s): K21.9 - Gastro-esophageal reflux disease without esophagitis Assessment/Plan IMP: Suspected Sarcoidosis Suspected Severe thrombocytopenia associated with hypersplenism / (?) ITP PLAN: Would change to Decadron 40mg PO OD x 4 days IVIG per Heme O2 as needed If we cannot establish a definitive diagnosis and if the platelets stablize -> may benefit from C-Med to get tissue diagnosis from the markedly abnormal mediastinal lymph nodes Follow H&H Will follow Thank you. Dr Leiva
[2017-03-27] MEDS ORDERED: DEXAMETHASONE SOD PHOSPHATE 10 MG/1 ML VIAL IVPB SCH (18:30)
[2017-03-27] MEDS: PANTOPRAZOLE 40 MG TABLET (FP) PO SCH (18:49)
--- NOTE | 2017-03-27 23:28 | PN ---
Progress Note (short form) - Note Progress Note: Patient seen and examined Denies any complaints Last Vital Signs Temp Pulse Resp BP Pulse Ox 97.8 F 54 L 20 129/52 98 03/28/17 06:00 03/28/17 06:00 03/28/17 06:00 03/28/17 06:00 03/27/17 20:08 Cor: RSR, No murmurs, No gallops Lungs: Clear to P&A Abd: Soft, Normal bowel sounds, No organomegaly Ext:No significant edema Skin: No rashes, Integument intact Abnormal Lab Results 03/26/17 03/28/17 03/28/17 05:35 06:00 06:00 WBC 2.3 L RBC 3.18 L Hgb 9.6 L D Hct 28.3 L Plt Count 14 L* D Neutrophils % 84.7 H Monocytes % 1.3 L D Random Glucose 129 H D Calcium 11.1 H Total Bilirubin 1.6 H D AST 51 H Alkaline Phosphatase 212 H Albumin 3.0 L PTH Intact 10 L Home Medication List Medication Instructions Recorded Confirmed Type Zolpidem Tartrate [Ambien] 10 mg PO HS 05/08/16 03/24/17 History Active Medications Generic Name Dose Route Start Last Admin Trade Name Freq PRN Reason Stop Dose Admin Acetaminophen 650 mg 03/26/17 08:08 03/28/17 10:08 Tylenol - PO 03/30/17 09:31 650 mg DAILY@0930 DEB Administration Dexamethasone 40 mg 03/28/17 10:00 03/28/17 10:27 Decadron - PO 03/30/17 10:01 40 mg DAILY DEB Administration Diphenhydramine HCl 25 mg 03/26/17 08:08 03/28/17 10:04 Benadryl Injection - IVPB 03/30/17 09:31 25 mg DAILY@0930 DEB Administration Immune Globulin 200 mls @ 25 mls/hr 03/26/17 08:30 03/27/17 10:11 Gamunex-C IVPB 03/30/17 10:01 25 mls/hr DAILY DEB Administration Sodium Chloride 1,000 mls @ 75 mls/hr 03/27/17 15:02 03/27/17 22:27 Normal Saline - IV 75 mls/hr ASDIR DEB Administration Multivitamins/Minerals/Vitamin C 1 tab 03/25/17 10:00 03/28/17 10:07 Tab-A-Vit - PO 1 tab DAILY DEB Administration Nicotine 21 mg 03/25/17 10:00 03/28/17 10:11 Nicoderm Patch - TD Not Given DAILY DEB Pantoprazole Sodium 40 mg 03/27/17 18:15 03/28/17 10:07 Protonix - PO 40 mg DAILY DEB Administration Thiamine HCl 100 mg 03/25/17 10:00 03/28/17 10:07 Vitamin B1 - PO 100 mg DAILY DEB Administration A/P 41 y/o patient with alcohol abuse, with severe thrombocytopenia, leukopenia hiv neg, ct chest shows mediastinal adenopathy ? granulomatous disease Given hypercalcemia, hepatosplenomegaly, mediastinal adenoplathy suspect Sarcoidosis. Patient recalls having had this diagnosis at [facility] agree with pulmonary and primary team to change solumedrol to dexamethasone continue IVIG monitor renal function
[2017-03-28 00:06] LABS: HBeAG Negative (Negative); HEP B SURFACE AB Reactive (.); HEP BE AB Negative (Negative)
[2017-03-28 07:18] LABS: BASOPHIL 0.1 % (0-2.0); MCH 30.3 pg (25.7-33.7); MEAN CELL VOLUME 89.1 fl (80-96); MEAN PLT VOLUME 10.8 fl (7.5-11.1); NEUTROPHILS 84.7 % (42.8-82.8); RDW 15.1 % (11.9-15.9); WHITE BLOOD COUNT 2.3 K/mm3 (4.0-10.0)
[2017-03-28 07:22] LABS: PLATELET COUNT 14 K/MM3 (134-434)
[2017-03-28 07:56] LABS: ALK PHOS 212 U/L (45-117); ANION GAP 11 (8-16); BILIRUBIN,TOTAL 1.6 mg/dL (0.2-1.0); CALCIUM 11.1 mg/dL (8.5-10.1); CO2 23 mmol/L (21-32); COCKROFT - GAULT 60.63; CREATININE 1.3 mg/dL (0.7-1.3); GLUCOSE,RANDOM 129 mg/dL (74-106); SGOT/AST 51 U/L (15-37); SGPT/ALT 41 U/L (12-78); TOT PROT 8.2 g/dl (6.4-8.2)
[2017-03-28] MEDS ORDERED: DEXAMETHASONE 4 MG TABLET (FP) PO SCH (10:00)
[2017-03-28] MEDS: MULTIVITAMINS (DAILY MVI) TABLET (FP) PO SCH (10:07)
[2017-03-28] MEDS: THIAMINE HCL 100 MG TABLET (FP) PO SCH (10:07)
[2017-03-28] MEDS: PANTOPRAZOLE 40 MG TABLET (FP) PO SCH (10:07)
[2017-03-28] MEDS: ACETAMINOPHEN 325 MG TABLET (FP) PO SCH (10:08)
[2017-03-28] MEDS: NICOTINE 21 MG/24 HOURS TOPICAL PATCH TD SCH (10:11)
[2017-03-28] MEDS: DEXAMETHASONE 4 MG TABLET (FP) PO SCH (10:27)
[2017-03-28] MEDS: IMMUNE GLOB,GAM CAPRYLATE(IGG) 20 GM IVPB SCH (11:00)
--- NOTE | 2017-03-28 11:44 | PN ---
Physical Exam: SUBJECTIVE: Patient seen and examined. He says he feels better. No further bleeding Events: - plts 14, improving OBJECTIVE: Vital Signs Period Temp Pulse Resp BP Sys/Humphrey Pulse Ox Last 24 Hr 97.8 F-98.6 F 54-74 20-20 129-141/52-81 98 PE Neuro: alert, awake, cn 2-12intact Pulm: CTAB CV: s1 s2 rrr no mrg Abd: s nt nd + bs Ext: warm, no le edema, finger clubbing Laboratory Results - last 24 hr 03/26/17 03/26/17 03/26/17 05:35 05:35 05:35 IgG 2070 H IgA 539 H IgM 196 H TERRY M-Toby Pending Rheumatoid Factor JOSE Screen Negative 03/26/17 05:35 IgG IgA IgM TERRY M-Toby Rheumatoid Factor < 10.0 JOSE Screen CBCD WBC 2.3 K/mm3 (4.0-10.0) L 03/28/17 06:00 RBC 3.18 M/mm3 (4.00-5.60) L 03/28/17 06:00 Hgb 9.6 GM/dL (11.7-16.9) L D 03/28/17 06:00 Hct 28.3 % (35.4-49) L 03/28/17 06:00 MCV 89.1 fl (80-96) 03/28/17 06:00 MCHC 34.0 g/dl (32.0-35.9) 03/28/17 06:00 RDW 15.1 % (11.9-15.9) 03/28/17 06:00 Plt Count 14 K/MM3 (134-434) L* D 03/28/17 06:00 MPV 10.8 fl (7.5-11.1) 03/28/17 06:00 CMP Sodium 140 mmol/L (136-145) 03/28/17 06:00 Potassium 4.1 mmol/L (3.5-5.1) 03/28/17 06:00 Chloride 106 mmol/L (98-107) 03/28/17 06:00 Carbon Dioxide 23 mmol/L (21-32) 03/28/17 06:00 Anion Gap 11 (8-16) 03/28/17 06:00 BUN 14 mg/dL (7-18) D 03/28/17 06:00 Creatinine 1.3 mg/dL (0.7-1.3) 03/28/17 06:00 Creat Clearance w eGFR > 60 (>60) 03/28/17 06:00 Calcium 11.1 mg/dL (8.5-10.1) H 03/28/17 06:00 Total Bilirubin 1.6 mg/dL (0.2-1.0) H D 03/28/17 06:00 AST 51 U/L (15-37) H 03/28/17 06:00 ALT 41 U/L (12-78) 03/28/17 06:00 Alkaline Phosphatase 212 U/L (45-117) H 03/28/17 06:00 Total Protein 8.2 g/dl (6.4-8.2) 03/28/17 06:00 Albumin 3.0 g/dl (3.4-5.0) L 03/28/17 06:00 Active Medications Generic Name Dose Route Start Last Admin Trade Name Naresh PRN Reason Stop Dose Admin Acetaminophen 650 mg 03/26/17 08:08 03/28/17 10:08 Tylenol - PO 03/30/17 09:31 650 mg DAILY@0930 DEB Administration Dexamethasone 40 mg 03/28/17 10:00 03/28/17 10:27 Decadron - PO 03/30/17 10:01 40 mg DAILY DEB Administration Diphenhydramine HCl 25 mg 03/26/17 08:08 03/28/17 10:04 Benadryl Injection - IVPB 03/30/17 09:31 25 mg DAILY@0930 DEB Administration Immune Globulin 200 mls @ 25 mls/hr 03/26/17 08:30 03/28/17 11:00 Gamunex-C IVPB 03/30/17 10:01 25 mls/hr DAILY DEB Administration Sodium Chloride 1,000 mls @ 75 mls/hr 03/27/17 15:02 03/27/17 22:27 Normal Saline - IV 75 mls/hr ASDIR DEB Administration Ceftriaxone Sodium 1 gm/ 50 mls @ 100 mls/hr 03/28/17 11:45 Dextrose IVPB 04/02/17 11:44 DAILY DEB Multivitamins/Minerals/Vitamin C 1 tab 03/25/17 10:00 03/28/17 10:07 Tab-A-Vit - PO 1 tab DAILY DEB Administration Nicotine 21 mg 03/25/17 10:00 03/28/17 10:11 Nicoderm Patch - TD Not Given DAILY DEB Pantoprazole Sodium 40 mg 03/27/17 18:15 03/28/17 10:07 Protonix - PO 40 mg DAILY DEB Administration Thiamine HCl 100 mg 03/25/17 10:00 03/28/17 10:07 Vitamin B1 - PO 100 mg DAILY DEB Administration Microbiology 03/26/17 06:45 Urine Culture - Final Urine - Urine Clean Catch Beta Hem Streptococcus Group C Streptococcus Viridans 03/25/17 22:40 Blood Culture - Preliminary Blood - Peripheral Venous NO GROWTH OBTAINED AFTER 48 HOURS, INCUBATION TO CONTINUE FOR 3 DAYS. 03/25/17 22:40 Blood Culture - Preliminary Blood - Peripheral Venous NO GROWTH OBTAINED AFTER 48 HOURS, INCUBATION TO CONTINUE FOR 3 DAYS. Imaging: - CTAP non contrast shows 2cm calcified lymph node, hepatosplenomegaly - CT chest with multiple calcified mediastinal lymph nodes Assessment: 41 year old male with hx of diverticulitis ?sub total colectomy sent over from [facility] for ETOH abuse admitted with thrombocytopenia, hematuria, pancytopenia. 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 Plan: 1. 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 R/o Malignant malignancy - Elevated IGG, IGM, IGA - M spike pending 3. Hypercalcemia - Will increase fluids to 10occ/hr - Corrected ca 11 4. ETOH abuse - No active signs of withdrawal - Valium PRN - Daily thiamine/MVI 5. ARACELIS - Cr wnl with fluids - UA negative for protein or glucose, could be from ETOH abuse 6. Microscopic hematuria - Secondary to thrombocytopenia - Outpt work up once dc - Will repeat UA prior to discharge 7. UTI - Start Bactrim BID x5 days, due to immuno compromised state Visit type - Emergency Visit Emergency Visit: Yes ED Registration Date: 03/24/17 Care time: The patient presented to the Emergency Department on the above date and was hospitalized for further evaluation of their emergent condition. - New Patient This patient is new to me today: No - Critical Care Critical Care patient: No
[2017-03-28] MEDS ORDERED: CEFTRIAXONE 1 GM in DEXTROSE 5%-WATER - 50 ML IVPB SCH (11:45)
--- NOTE | 2017-03-28 12:24 | PN ---
Progress Note (short form) - Note Progress Note: Progress Note: Patient seen in follow up. No events overnight. Feeling well. Meds reviewed. Current Medications Generic Name Dose Route Start Last Admin Trade Name Naresh PRN Reason Stop Dose Admin Acetaminophen 650 mg 03/26/17 08:08 03/28/17 10:08 Tylenol - PO 03/30/17 09:31 650 mg DAILY@0930 DEB Administration Dexamethasone 40 mg 03/28/17 10:00 03/28/17 10:27 Decadron - PO 03/30/17 10:01 40 mg DAILY DEB Administration Diphenhydramine HCl 25 mg 03/26/17 08:08 03/28/17 10:04 Benadryl Injection - IVPB 03/30/17 09:31 25 mg DAILY@0930 DEB Administration Immune Globulin 200 mls @ 25 mls/hr 03/26/17 08:30 03/28/17 11:00 Gamunex-C IVPB 03/30/17 10:01 25 mls/hr DAILY DEB Administration Sodium Chloride 1,000 mls @ 75 mls/hr 03/27/17 15:02 03/27/17 22:27 Normal Saline - IV 75 mls/hr ASDIR DEB Administration Ceftriaxone Sodium 1 gm/ 50 mls @ 100 mls/hr 03/28/17 11:45 Dextrose IVPB 04/02/17 11:44 DAILY DEB Multivitamins/Minerals/Vitamin C 1 tab 03/25/17 10:00 03/28/17 10:07 Tab-A-Vit - PO 1 tab DAILY DEB Administration Nicotine 21 mg 03/25/17 10:00 03/28/17 10:11 Nicoderm Patch - TD Not Given DAILY DEB Pantoprazole Sodium 40 mg 03/27/17 18:15 03/28/17 10:07 Protonix - PO 40 mg DAILY DEB Administration Thiamine HCl 100 mg 03/25/17 10:00 03/28/17 10:07 Vitamin B1 - PO 100 mg DAILY DEB Administration On examination: Last Vital Signs Temp Pulse Resp BP Pulse Ox 97.8 F 54 L 20 129/52 98 03/28/17 06:00 03/28/17 06:00 03/28/17 06:00 03/28/17 06:00 03/27/17 20:08 General: In no acute distress. Oropharyngeal: No signs mucosal hemorrhage, no mucosal lesions. Extremities: No pallor, no icterus, no pedal edema. Finger clubbing. Chest:good air entry bilaterally, clear. Abdomen: Soft, not distended, no palpablr organomegaly, no masses. Neuro: Alert and oriented, non-focal. CVS: Normal sinus rhythm, S1, S2, no gallop or murmur. Skin: No rash. Labs reviewed: CBC, BMP 03/28/17 06:00 03/28/17 06:00 Assessment: Severe thrombocytopenia, with improvement today with ongoing course of steroids/ IVIG - continue immuno-suppression protocol for now. Splenomegaly and calcified mediastinal lymph nodes - suggestive possible sarcoidosis - workup pending.
--- NOTE | 2017-03-28 13:52 | PN ---
Progress Note (short form) - Note Progress Note: Feels oK today. No CP or SOB. Platelets 14K! Intake & Output 03/25/17 03/26/17 03/27/17 03/28/17 23:59 23:59 23:59 23:59 Intake Total 1802 2319 3764 525 Output Total 500 200 600 420 Balance 1302 2119 3164 105 Weight 129 lb Last Vital Signs Temp Pulse Resp BP Pulse Ox 98.4 F 57 L 20 126/75 98 03/28/17 10:00 03/28/17 10:00 03/28/17 10:00 03/28/17 10:00 03/28/17 10:00 Active Medications Acetaminophen (Tylenol -) 650 mg PO DAILY@30 [facility] Stop: 03/30/17 09:31 Last Admin: 03/28/17 10:08 Dose: 650 mg Dexamethasone (Decadron -) 40 mg PO DAILY [facility] Stop: 03/30/17 10:01 Last Admin: 03/28/17 10:27 Dose: 40 mg Diphenhydramine HCl (Benadryl Injection -) 25 mg IVPB DAILY@30 [facility] Stop: 03/30/17 09:31 Last Admin: 03/28/17 10:04 Dose: 25 mg Immune Globulin (Gamunex-C) 200 mls @ 25 mls/hr IVPB DAILY [facility] Stop: 03/30/17 10:01 Last Admin: 03/28/17 11:00 Dose: 25 mls/hr Sodium Chloride (Normal Saline -) 1,000 mls @ 75 mls/hr IV ASDIR [facility] Last Admin: 03/27/17 22:27 Dose: 75 mls/hr Multivitamins/Minerals/Vitamin C (Tab-A-Vit -) 1 tab PO DAILY [facility] Last Admin: 03/28/17 10:07 Dose: 1 tab Nicotine (Nicoderm Patch -) 21 mg TD DAILY [facility] Last Admin: 03/28/17 10:11 Dose: Not Given Pantoprazole Sodium (Protonix -) 40 mg PO DAILY [facility] Last Admin: 03/28/17 10:07 Dose: 40 mg Thiamine HCl (Vitamin B1 -) 100 mg PO DAILY [facility] Last Admin: 03/28/17 10:07 Dose: 100 mg Trimethoprim/Sulfamethoxazole (Bactrim Ds -) 1 each PO BID [facility] Stop: 04/02/17 12:44 Constitutional: Yes: No Distress, Thin Eyes: Yes: Conjunctiva Clear, EOM Intact HENT: Yes: Atraumatic, Normocephalic Neck: Yes: Supple, Trachea Midline Cardiovascular: Yes: Regular Rate and Rhythm Respiratory: Yes: CTA Bilaterally. No: Accessory Muscle Use, Rales, Rhonchi, SOB, SOB on Exertion, Stridor, Tachypnea, Wheezes ...Inspection: Yes: WNL ...Clubbing: No Gastrointestinal: Yes: WNL, Normal Bowel Sounds, Soft Musculoskeletal: Yes: WNL Extremities: Yes: WNL Edema: No Peripheral Pulses WNL: Yes Integumentary: Yes: WNL Neurological: Yes: WNL, Alert, Oriented ...Motor Strength: WNL Psychiatric: Yes: WNL, Alert, Oriented Labs: Laboratory Results - last 24 hr 03/26/17 03/26/17 03/26/17 05:35 05:35 05:35 WBC RBC Hgb Hct MCV MCHC RDW Plt Count MPV Neutrophils % Lymphocytes % Monocytes % Eosinophils % Basophils % Sickle Cell Screen Sodium Potassium Chloride Carbon Dioxide Anion Gap BUN Creatinine Creat Clearance w eGFR Random Glucose Calcium Total Bilirubin AST ALT Alkaline Phosphatase Total Protein Albumin Oxvme-7-Zdwgnkusp (%) Cancelled Facyy-6-Kvakxkjud (%) Cancelled Beta Globulins (%) Cancelled Gamma Globulins (%) Cancelled M-Toby % Cancelled PTH Intact 10 L JOSE Screen Negative Hep Bs Antigen Negative Hep Bs Ab Concentration Reactive Hep B Core Total Ab Negative Hep B Core IgM Ab Negative Hepatitis Be Antibody Negative Hepatitis Be Antigen Negative Ref Test Comments Cancelled 03/28/17 03/28/17 03/28/17 06:00 06:00 06:00 WBC 2.3 L RBC 3.18 L Hgb 9.6 L D Hct 28.3 L MCV 89.1 MCHC 34.0 RDW 15.1 Plt Count 14 L* D MPV 10.8 Neutrophils % 84.7 H Lymphocytes % 13.9 Monocytes % 1.3 L D Eosinophils % 0.0 D Basophils % 0.1 Sickle Cell Screen Positive Sodium 140 Potassium 4.1 Chloride 106 Carbon Dioxide 23 Anion Gap 11 BUN 14 D Creatinine 1.3 Creat Clearance w eGFR > 60 Random Glucose 129 H D Calcium 11.1 H Total Bilirubin 1.6 H D AST 51 H ALT 41 Alkaline Phosphatase 212 H Total Protein 8.2 Albumin 3.0 L Tmvhw-5-Coidlqads (%) Xbhif-0-Ifntyavbu (%) Beta Globulins (%) Gamma Globulins (%) M-Toby % PTH Intact JOSE Screen Hep Bs Antigen Hep Bs Ab Concentration Hep B Core Total Ab Hep B Core IgM Ab Hepatitis Be Antibody Hepatitis Be Antigen Ref Test Comments Problem List - Problems (1) Alcohol dependence with uncomplicated withdrawal Code(s): F10.230 - ALCOHOL DEPENDENCE WITH WITHDRAWAL, UNCOMPLICATED (2) Decreased platelet count Code(s): D69.6 - THROMBOCYTOPENIA, UNSPECIFIED (3) Neutropenia Code(s): D70.9 - NEUTROPENIA, UNSPECIFIED Qualifiers: Neutropenia type: unspecified Qualified Code(s): D70.9 - Neutropenia, unspecified (4) Acute alcohol dependence syndrome Code(s): F10.20 - ALCOHOL DEPENDENCE, UNCOMPLICATED (5) Marijuana dependence Code(s): F12.20 - CANNABIS DEPENDENCE, UNCOMPLICATED (6) Nicotine dependence Code(s): F17.200 - NICOTINE DEPENDENCE, UNSPECIFIED, UNCOMPLICATED Qualifiers : Nicotine product type: cigarettes Substance use status: uncomplicated Qualified Code(s): F17.210 - Nicotine dependence, cigarettes, uncomplicated (7) Substance induced mood disorder Code(s): F19.94 - OTH PSYCHOACTIVE SUBSTANCE USE, UNSP W MOOD DISORDER (8) Crohns disease Code(s): K50.90 - CROHN'S DISEASE, UNSPECIFIED, WITHOUT COMPLICATIONS Qualifiers: Gastrointestinal tract location: unspecified location Digestive disease complication type: unspecified complication Qualified Code(s): K50.919 - Crohn's disease, unspecified, with unspecified complications (9) GERD (gastroesophageal reflux disease) Code(s): K21.9 - GASTRO-ESOPHAGEAL REFLUX DISEASE WITHOUT ESOPHAGITIS Qualifiers: Esophagitis presence: without esophagitis Qualified Code(s): K21.9 - Gastro-esophageal reflux disease without esophagitis Assessment/Plan IMP: Suspected Sarcoidosis Suspected Severe thrombocytopenia associated with hyperspleenism / (?) ITP PLAN: Decadron 40mg PO OD x 4 days IVIG per Heme O2 as needed If we cannot establish a definitive diagnosis and if platelets stablize -> may benefit from C-Med for tissue diagnosis from the mediastinal lymph nodes Dr Leiva Problem List - Problems (1) Alcohol dependence with uncomplicated withdrawal Code(s): F10.230 - ALCOHOL DEPENDENCE WITH WITHDRAWAL, UNCOMPLICATED (2) Decreased platelet count Code(s): D69.6 - THROMBOCYTOPENIA, UNSPECIFIED (3) Neutropenia Code(s): D70.9 - NEUTROPENIA, UNSPECIFIED Qualifiers: Neutropenia type: unspecified Qualified Code(s): D70.9 - Neutropenia, unspecified (4) Acute alcohol dependence syndrome Code(s): F10.20 - ALCOHOL DEPENDENCE, UNCOMPLICATED (5) Marijuana dependence Code(s): F12.20 - CANNABIS DEPENDENCE, UNCOMPLICATED (6) Nicotine dependence Code(s): F17.200 - NICOTINE DEPENDENCE, UNSPECIFIED, UNCOMPLICATED Qualifiers : Nicotine product type: cigarettes Substance use status: uncomplicated Qualified Code(s): F17.210 - Nicotine dependence, cigarettes, uncomplicated (7) Substance induced mood disorder Code(s): F19.94 - OTH PSYCHOACTIVE SUBSTANCE USE, UNSP W MOOD DISORDER (8) Crohns disease Code(s): K50.90 - CROHN'S DISEASE, UNSPECIFIED, WITHOUT COMPLICATIONS Qualifiers: Gastrointestinal tract location: unspecified location Digestive disease complication type: unspecified complication Qualified Code(s): K50.919 - Crohn's disease, unspecified, with unspecified complications (9) GERD (gastroesophageal reflux disease) Code(s): K21.9 - GASTRO-ESOPHAGEAL REFLUX DISEASE WITHOUT ESOPHAGITIS Qualifiers: Esophagitis presence: without esophagitis Qualified Code(s): K21.9 - Gastro-esophageal reflux disease without esophagitis
[2017-03-28] MEDS: SULFAMETHOXAZOLE/TRIMETHOPRIM 800MG/160MG D.S. TABLET PO SCH ×2 (14:04→22:20)
[2017-03-28] MEDS: SODIUM CHLORIDE 1,000 ML IV SCH ×2 (14:05→23:44)
[2017-03-29 07:42] LABS: BASOPHIL 0.2 % (0-2.0); MCH 30.1 pg (25.7-33.7); MCHC 33.6 g/dl (32.0-35.9); MEAN CELL VOLUME 89.6 fl (80-96); MEAN PLT VOLUME 10.3 fl (7.5-11.1); NEUTROPHILS 89.1 % (42.8-82.8); PLATELET COUNT 41 K/MM3 (134-434); RDW 15.2 % (11.9-15.9); WHITE BLOOD COUNT 4.5 K/mm3 (4.0-10.0)
[2017-03-29 08:14] LABS: ALBUMIN 2.9 g/dl (3.4-5.0); ANION GAP 11 (8-16); BILIRUBIN,TOTAL 1.5 mg/dL (0.2-1.0); CALCIUM 11.8 mg/dL (8.5-10.1); CO2 23 mmol/L (21-32); COCKROFT - GAULT 60.63; CREATININE 1.3 mg/dL (0.7-1.3); GLUCOSE,RANDOM 99 mg/dL (74-106); SGOT/AST 49 U/L (15-37); SGPT/ALT 44 U/L (12-78)
[2017-03-29 08:18] LABS: ALK PHOS 198 U/L (45-117); TOT PROT 7.9 g/dl (6.4-8.2)
[2017-03-29] MEDS: ACETAMINOPHEN 325 MG TABLET (FP) PO SCH (10:01)
[2017-03-29] MEDS: DEXAMETHASONE 4 MG TABLET (FP) PO SCH (10:03)
[2017-03-29] MEDS: IMMUNE GLOB,GAM CAPRYLATE(IGG) 20 GM IVPB SCH (10:45)
[2017-03-29] MEDS: SODIUM CHLORIDE 1,000 ML IV SCH ×2 (11:45→21:30)
[2017-03-29] MEDS: MULTIVITAMINS (DAILY MVI) TABLET (FP) PO SCH (11:46)
[2017-03-29] MEDS: PANTOPRAZOLE 40 MG TABLET (FP) PO SCH (11:46)
[2017-03-29] MEDS: THIAMINE HCL 100 MG TABLET (FP) PO SCH (11:46)
[2017-03-29] MEDS: SULFAMETHOXAZOLE/TRIMETHOPRIM 800MG/160MG D.S. TABLET PO SCH ×2 (11:46→21:31)
[2017-03-29] MEDS: NICOTINE 21 MG/24 HOURS TOPICAL PATCH TD SCH (11:49)
--- NOTE | 2017-03-29 12:46 | PN ---
Progress Note (short form) - Note Progress Note: Feels OK. No CP or SOB. Platelets 41K! Intake & Output 03/26/17 03/27/17 03/28/17 03/29/17 23:59 23:59 23:59 23:59 Intake Total 2319 3764 625 400 Output Total 200 600 820 Balance 2119 3164 -195 400 Last Vital Signs Temp Pulse Resp BP Pulse Ox 97.6 F 69 20 133/81 95 03/29/17 06:07 03/29/17 06:07 03/29/17 06:07 03/29/17 06:07 03/28/17 21:00 Active Medications Acetaminophen (Tylenol -) 650 mg PO DAILY@30 [facility] Stop: 03/30/17 09:31 Last Admin: 03/29/17 10:01 Dose: 650 mg Dexamethasone (Decadron -) 40 mg PO DAILY [facility] Stop: 03/30/17 10:01 Last Admin: 03/29/17 10:03 Dose: 40 mg Diphenhydramine HCl (Benadryl Injection -) 25 mg IVPB DAILY@30 [facility] Stop: 03/30/17 09:31 Last Admin: 03/29/17 10:02 Dose: 25 mg Immune Globulin (Gamunex-C) 200 mls @ 25 mls/hr IVPB DAILY [facility] Stop: 03/30/17 10:01 Last Admin: 03/29/17 10:45 Dose: 25 mls/hr Sodium Chloride (Normal Saline -) 1,000 mls @ 75 mls/hr IV ASDIR [facility] Last Admin: 03/29/17 11:45 Dose: 75 mls/hr Multivitamins/Minerals/Vitamin C (Tab-A-Vit -) 1 tab PO DAILY [facility] Last Admin: 03/29/17 11:46 Dose: 1 tab Nicotine (Nicoderm Patch -) 21 mg TD DAILY [facility] Last Admin: 03/29/17 11:49 Dose: Not Given Pantoprazole Sodium (Protonix -) 40 mg PO DAILY [facility] Last Admin: 03/29/17 11:46 Dose: 40 mg Thiamine HCl (Vitamin B1 -) 100 mg PO DAILY [facility] Last Admin: 03/29/17 11:46 Dose: 100 mg Trimethoprim/Sulfamethoxazole (Bactrim Ds -) 1 each PO BID [facility] Stop: 04/02/17 12:44 Last Admin: 03/29/17 11:46 Dose: 1 each Constitutional: Yes: No Distress, Thin Eyes: Yes: Conjunctiva Clear, EOM Intact HENT: Yes: Atraumatic, Normocephalic Neck: Yes: Supple, Trachea Midline Cardiovascular: Yes: Regular Rate and Rhythm Respiratory: Yes: CTA Bilaterally. No: Accessory Muscle Use, Rales, Rhonchi, SOB, SOB on Exertion, Stridor, Tachypnea, Wheezes ...Inspection: Yes: WNL ...Clubbing: No Gastrointestinal: Yes: WNL, Normal Bowel Sounds, Soft Musculoskeletal: Yes: WNL Extremities: Yes: WNL Edema: No Peripheral Pulses WNL: Yes Integumentary: Yes: WNL Neurological: Yes: WNL, Alert, Oriented ...Motor Strength: WNL Psychiatric: Yes: WNL, Alert, Oriented Labs: Laboratory Results - last 24 hr 03/29/17 03/29/17 06:00 06:00 WBC 4.5 D RBC 3.04 L Hgb 9.1 L Hct 27.2 L MCV 89.6 MCHC 33.6 RDW 15.2 Plt Count 41 L D MPV 10.3 Neutrophils % 89.1 H Lymphocytes % 7.0 L D Monocytes % 3.7 L D Eosinophils % 0.0 Basophils % 0.2 Sodium 141 Potassium 3.7 Chloride 107 Carbon Dioxide 23 Anion Gap 11 BUN 19 H D Creatinine 1.3 Creat Clearance w eGFR > 60 Random Glucose 99 D Calcium 11.8 H Total Bilirubin 1.5 H AST 49 H ALT 44 Alkaline Phosphatase 198 H Total Protein 7.9 Albumin 2.9 L Problem List - Problems (1) Alcohol dependence with uncomplicated withdrawal Code(s): F10.230 - ALCOHOL DEPENDENCE WITH WITHDRAWAL, UNCOMPLICATED (2) Decreased platelet count Code(s): D69.6 - THROMBOCYTOPENIA, UNSPECIFIED (3) Neutropenia Code(s): D70.9 - NEUTROPENIA, UNSPECIFIED Qualifiers: Neutropenia type: unspecified Qualified Code(s): D70.9 - Neutropenia, unspecified (4) Acute alcohol dependence syndrome Code(s): F10.20 - ALCOHOL DEPENDENCE, UNCOMPLICATED (5) Marijuana dependence Code(s): F12.20 - CANNABIS DEPENDENCE, UNCOMPLICATED (6) Nicotine dependence Code(s): F17.200 - NICOTINE DEPENDENCE, UNSPECIFIED, UNCOMPLICATED Qualifiers : Nicotine product type: cigarettes Substance use status: uncomplicated Qualified Code(s): F17.210 - Nicotine dependence, cigarettes, uncomplicated (7) Substance induced mood disorder Code(s): F19.94 - OTH PSYCHOACTIVE SUBSTANCE USE, UNSP W MOOD DISORDER (8) Crohns disease Code(s): K50.90 - CROHN'S DISEASE, UNSPECIFIED, WITHOUT COMPLICATIONS Qualifiers: Gastrointestinal tract location: unspecified location Digestive disease complication type: unspecified complication Qualified Code(s): K50.919 - Crohn's disease, unspecified, with unspecified complications (9) GERD (gastroesophageal reflux disease) Code(s): K21.9 - GASTRO-ESOPHAGEAL REFLUX DISEASE WITHOUT ESOPHAGITIS Qualifiers: Esophagitis presence: without esophagitis Qualified Code(s): K21.9 - Gastro-esophageal reflux disease without esophagitis Assessment/Plan IMP: Suspected Sarcoidosis Suspected Severe thrombocytopenia associated with hyperspleenism / (?) ITP PLAN: Decadron 40mg PO OD x 4 days total IVIG per Heme O2 as needed If we cannot establish a definitive diagnosis and if platelets stablize -> may benefit from C-Med for tissue diagnosis from the mediastinal lymph nodes Dr Leiva Problem List - Problems (1) Alcohol dependence with uncomplicated withdrawal Code(s): F10.230 - ALCOHOL DEPENDENCE WITH WITHDRAWAL, UNCOMPLICATED (2) Decreased platelet count Code(s): D69.6 - THROMBOCYTOPENIA, UNSPECIFIED (3) Neutropenia Code(s): D70.9 - NEUTROPENIA, UNSPECIFIED Qualifiers: Neutropenia type: unspecified Qualified Code(s): D70.9 - Neutropenia, unspecified (4) Acute alcohol dependence syndrome Code(s): F10.20 - ALCOHOL DEPENDENCE, UNCOMPLICATED (5) Marijuana dependence Code(s): F12.20 - CANNABIS DEPENDENCE, UNCOMPLICATED (6) Nicotine dependence Code(s): F17.200 - NICOTINE DEPENDENCE, UNSPECIFIED, UNCOMPLICATED Qualifiers : Nicotine product type: cigarettes Substance use status: uncomplicated Qualified Code(s): F17.210 - Nicotine dependence, cigarettes, uncomplicated (7) Substance induced mood disorder Code(s): F19.94 - OTH PSYCHOACTIVE SUBSTANCE USE, UNSP W MOOD DISORDER (8) Crohns disease Code(s): K50.90 - CROHN'S DISEASE, UNSPECIFIED, WITHOUT COMPLICATIONS Qualifiers: Gastrointestinal tract location: unspecified location Digestive disease complication type: unspecified complication Qualified Code(s): K50.919 - Crohn's disease, unspecified, with unspecified complications (9) GERD (gastroesophageal reflux disease) Code(s): K21.9 - GASTRO-ESOPHAGEAL REFLUX DISEASE WITHOUT ESOPHAGITIS Qualifiers: Esophagitis presence: without esophagitis Qualified Code(s): K21.9 - Gastro-esophageal reflux disease without esophagitis
--- NOTE | 2017-03-29 14:10 | PN ---
Progress Note (short form) - Note Progress Note: Progress Note: Patient seen in follow up. No events overnight. Feeling well. Meds reviewed. Current Medications Generic Name Dose Route Start Last Admin Trade Name Naresh PRN Reason Stop Dose Admin Acetaminophen 650 mg 03/26/17 08:08 03/29/17 10:01 Tylenol - PO 03/30/17 09:31 650 mg DAILY@0930 DEB Administration Dexamethasone 40 mg 03/28/17 10:00 03/29/17 10:03 Decadron - PO 03/30/17 10:01 40 mg DAILY DEB Administration Diphenhydramine HCl 25 mg 03/26/17 08:08 03/29/17 10:02 Benadryl Injection - IVPB 03/30/17 09:31 25 mg DAILY@0930 DEB Administration Immune Globulin 200 mls @ 25 mls/hr 03/26/17 08:30 03/29/17 10:45 Gamunex-C IVPB 03/30/17 10:01 25 mls/hr DAILY DEB Administration Sodium Chloride 1,000 mls @ 75 mls/hr 03/27/17 15:02 03/29/17 11:45 Normal Saline - IV 75 mls/hr ASDIR DEB Administration Multivitamins/Minerals/Vitamin C 1 tab 03/25/17 10:00 03/29/17 11:46 Tab-A-Vit - PO 1 tab DAILY DEB Administration Nicotine 21 mg 03/25/17 10:00 03/29/17 11:49 Nicoderm Patch - TD Not Given DAILY DEB Pantoprazole Sodium 40 mg 03/27/17 18:15 03/29/17 11:46 Protonix - PO 40 mg DAILY DEB Administration Thiamine HCl 100 mg 03/25/17 10:00 03/29/17 11:46 Vitamin B1 - PO 100 mg DAILY DEB Administration Trimethoprim/Sulfamethoxazole 1 each 03/28/17 12:45 03/29/17 11:46 Bactrim Ds - PO 04/02/17 12:44 1 each BID DEB Administration On examination: Last Vital Signs Temp Pulse Resp BP Pulse Ox 97.6 F 69 20 133/81 95 03/29/17 06:07 03/29/17 06:07 03/29/17 06:07 03/29/17 06:07 03/28/17 21:00 General: In no acute distress. Oropharyngeal: No signs mucosal hemorrhage, no mucosal lesions. Extremities: No pallor, no icterus, no pedal edema. Finger clubbing. Chest:good air entry bilaterally, clear. Abdomen: Soft, not distended, no palpablr organomegaly, no masses. Neuro: Alert and oriented, non-focal. CVS: Normal sinus rhythm, S1, S2, no gallop or murmur. Skin: No rash. Labs reviewed: 03/29/17 06:00 03/29/17 06:00 Assessment: Severe thrombocytopenia, with ongoing improvement today with ongoing course of steroids/IVIG - continue immuno-suppression protocol for now. Splenomegaly and calcified mediastinal lymph nodes - suggestive possible sarcoidosis - workup pending. Not neutropenic - DC neutropenic precautions.
--- NOTE | 2017-03-29 14:25 | PN ---
Physical Exam: SUBJECTIVE: Patient seen and examined. He is feeling well, he has no complaints. Events: - Plts 41 OBJECTIVE: Vital Signs Period Temp Pulse Resp BP Sys/Humphrey Pulse Ox Last 24 Hr 97.6 F-97.9 F 56-69 18-20 133-145/71-81 95 PE Neuro: alert, awake, cn 2-12intact Pulm: CTAB CV: s1 s2 rrr no mrg Abd: s nt nd + bs Ext: warm, no le edema, finger clubbing Laboratory Results - last 24 hr 03/29/17 03/29/17 06:00 06:00 WBC 4.5 D RBC 3.04 L Hgb 9.1 L Hct 27.2 L MCV 89.6 MCHC 33.6 RDW 15.2 Plt Count 41 L D MPV 10.3 Neutrophils % 89.1 H Lymphocytes % 7.0 L D Monocytes % 3.7 L D Eosinophils % 0.0 Basophils % 0.2 Sodium 141 Potassium 3.7 Chloride 107 Carbon Dioxide 23 Anion Gap 11 BUN 19 H D Creatinine 1.3 Creat Clearance w eGFR > 60 Random Glucose 99 D Calcium 11.8 H Total Bilirubin 1.5 H AST 49 H ALT 44 Alkaline Phosphatase 198 H Total Protein 7.9 Albumin 2.9 L Active Medications Generic Name Dose Route Start Last Admin Trade Name Naresh PRN Reason Stop Dose Admin Acetaminophen 650 mg 03/26/17 08:08 03/29/17 10:01 Tylenol - PO 03/30/17 09:31 650 mg DAILY@0930 DEB Administration Dexamethasone 40 mg 03/28/17 10:00 03/29/17 10:03 Decadron - PO 03/30/17 10:01 40 mg DAILY DEB Administration Diphenhydramine HCl 25 mg 03/26/17 08:08 03/29/17 10:02 Benadryl Injection - IVPB 03/30/17 09:31 25 mg DAILY@0930 DEB Administration Immune Globulin 200 mls @ 25 mls/hr 03/26/17 08:30 03/29/17 10:45 Gamunex-C IVPB 03/30/17 10:01 25 mls/hr DAILY DEB Administration Sodium Chloride 1,000 mls @ 75 mls/hr 03/27/17 15:02 03/29/17 11:45 Normal Saline - IV 75 mls/hr ASDIR DEB Administration Multivitamins/Minerals/Vitamin C 1 tab 03/25/17 10:00 03/29/17 11:46 Tab-A-Vit - PO 1 tab DAILY DEB Administration Nicotine 21 mg 03/25/17 10:00 03/29/17 11:49 Nicoderm Patch - TD Not Given DAILY DEB Pantoprazole Sodium 40 mg 03/27/17 18:15 03/29/17 11:46 Protonix - PO 40 mg DAILY DEB Administration Thiamine HCl 100 mg 03/25/17 10:00 03/29/17 11:46 Vitamin B1 - PO 100 mg DAILY DEB Administration Trimethoprim/Sulfamethoxazole 1 each 03/28/17 12:45 03/29/17 11:46 Bactrim Ds - PO 04/02/17 12:44 1 each BID DEB Administration Imaging: - CTAP non contrast shows 2cm calcified lymph node, hepatosplenomegaly - CT chest with multiple calcified mediastinal lymph nodes Assessment: 41 year old male with hx of diverticulitis ?sub total colectomy sent over from [facility] for ETOH abuse admitted with thrombocytopenia, hematuria, pancytopenia. 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 Plan: 1. 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 R/o Malignant malignancy - Elevated IGG, IGM, IGA - M spike pending 3. Hypercalcemia - Corrected ca 12.68, levels increasing - Increase fluids to 100cc/hr 4. ETOH abuse - No active signs of withdrawal - Valium PRN - Daily thiamine/MVI 5. ARACELIS - Resolved 6. Microscopic hematuria - Secondary to thrombocytopenia - Outpt work up once dc - Will repeat UA prior to discharge 7. UTI - Bactrim BID x3 days, due to immuno compromised state, however ANC is stable Visit type - Emergency Visit Emergency Visit: Yes ED Registration Date: 03/24/17 Care time: The patient presented to the Emergency Department on the above date and was hospitalized for further evaluation of their emergent condition. - New Patient This patient is new to me today: No - Critical Care Critical Care patient: No
[2017-03-30] MEDS: SODIUM CHLORIDE 1,000 ML IV SCH (02:26)
[2017-03-30 07:50] LABS: BASOPHIL 0.1 % (0-2.0); MCH 30.4 pg (25.7-33.7); MCHC 34.1 g/dl (32.0-35.9); MEAN CELL VOLUME 89.1 fl (80-96); MEAN PLT VOLUME 9.4 fl (7.5-11.1); NEUTROPHILS 86.7 % (42.8-82.8); PLATELET COUNT 68 K/MM3 (134-434); RDW 15.3 % (11.9-15.9); WHITE BLOOD COUNT 4.5 K/mm3 (4.0-10.0)
[2017-03-30 08:13] LABS: ALBUMIN 2.7 g/dl (3.4-5.0); BILIRUBIN,TOTAL 1.5 mg/dL (0.2-1.0); CALCIUM 10.7 mg/dL (8.5-10.1); COCKROFT - GAULT 49.26; CREATININE 1.6 mg/dL (0.7-1.3); TOT PROT 7.9 g/dl (6.4-8.2)
[2017-03-30] MEDS ORDERED: ACETAMINOPHEN 325 MG TABLET (FP) PO ONE (12:00)
[2017-03-30] MEDS: SULFAMETHOXAZOLE/TRIMETHOPRIM 800MG/160MG D.S. TABLET PO SCH (12:05)
[2017-03-30] MEDS: THIAMINE HCL 100 MG TABLET (FP) PO SCH (12:05)
[2017-03-30] MEDS: MULTIVITAMINS (DAILY MVI) TABLET (FP) PO SCH (12:05)
[2017-03-30] MEDS: PANTOPRAZOLE 40 MG TABLET (FP) PO SCH (12:06)
[2017-03-30] MEDS: NICOTINE 21 MG/24 HOURS TOPICAL PATCH TD SCH (12:06)
[2017-03-30] MEDS: ACETAMINOPHEN 325 MG TABLET (FP) PO SCH (13:06)
[2017-03-30] MEDS: DEXAMETHASONE 4 MG TABLET (FP) PO SCH (13:08)
[2017-03-30] MEDS: IMMUNE GLOB,GAM CAPRYLATE(IGG) 20 GM IVPB SCH (13:49)
--- NOTE | 2017-03-30 14:22 | PN ---
Progress Note (short form) - Note Progress Note: Patient seen and examined Denies any complaints Last Vital Signs Temp Pulse Resp BP Pulse Ox 97.8 F 60 20 136/70 95 03/30/17 06:17 03/30/17 06:17 03/30/17 06:17 03/30/17 06:17 03/29/17 21:00 Cor: RSR, No murmurs, No gallops Lungs: Clear to P&A Abd: Soft, Normal bowel sounds, No organomegaly Ext:No significant edema Abnormal Lab Results 03/30/17 03/30/17 06:00 06:00 RBC 3.20 L Hgb 9.7 L Hct 28.5 L Plt Count 68 L D Neutrophils % 86.7 H Lymphocytes % 6.9 L Chloride 108 H BUN 24 H D Creatinine 1.6 H D Calcium 10.7 H Total Bilirubin 1.5 H AST 42 H Alkaline Phosphatase 175 H Albumin 2.7 L Home Medication List Medication Instructions Recorded Confirmed Type Zolpidem Tartrate [Ambien] 10 mg PO HS 05/08/16 03/24/17 History Active Medications Generic Name Dose Route Start Last Admin Trade Name Freq PRN Reason Stop Dose Admin Sodium Chloride 1,000 mls @ 100 mls/hr 03/29/17 14:31 03/30/17 02:26 Normal Saline - IV 100 mls/hr ASDIR DBE Administration Multivitamins/Minerals/Vitamin C 1 tab 03/25/17 10:00 03/30/17 12:05 Tab-A-Vit - PO 1 tab DAILY DEB Administration Nicotine 21 mg 03/25/17 10:00 03/30/17 12:06 Nicoderm Patch - TD Not Given DAILY DEB Pantoprazole Sodium 40 mg 03/27/17 18:15 03/30/17 12:06 Protonix - PO 40 mg DAILY DEB Administration Thiamine HCl 100 mg 03/25/17 10:00 03/30/17 12:05 Vitamin B1 - PO 100 mg DAILY DEB Administration A/P 41 y/o patient with alcohol abuse, with severe thrombocytopenia, leukopenia started steroids/ivig Platelets 12612 completing dex/IVIG today hypercalcemia--consider endocrine consult. to satrt 30mg/d prednisone with mepron on iv fluids + urine cx /asymptomatic --consider ID consult will need close outpatient f/u with hematology
--- NOTE | 2017-03-30 16:41 | PN ---
Physical Exam: SUBJECTIVE: Patient seen and examined. Feels well, no complaints. Does not know or follow the name of doctor who treated him initially at [facility] OBJECTIVE: Vital Signs Period Temp Pulse Resp BP Sys/Humphrey Pulse Ox Last 24 Hr 97.8 F-98.2 F 60-67 20-20 136-143/70-79 95 PE Neuro: alert, awake, cn 2-12intact Pulm: CTAB CV: s1 s2 rrr no mrg Abd: s nt nd + bs Ext: warm, no le edema, finger clubbing Laboratory Results - last 24 hr 03/30/17 03/30/17 06:00 06:00 WBC 4.5 RBC 3.20 L Hgb 9.7 L Hct 28.5 L MCV 89.1 MCHC 34.1 RDW 15.3 Plt Count 68 L D MPV 9.4 Neutrophils % 86.7 H Lymphocytes % 6.9 L Monocytes % 6.3 Eosinophils % 0.0 Basophils % 0.1 Sodium 142 Potassium 3.7 Chloride 108 H Carbon Dioxide 22 Anion Gap 12 BUN 24 H D Creatinine 1.6 H D Creat Clearance w eGFR 47.41 Random Glucose 83 Calcium 10.7 H Total Bilirubin 1.5 H AST 42 H ALT 45 Alkaline Phosphatase 175 H Total Protein 7.9 Albumin 2.7 L Active Medications Generic Name Dose Route Start Last Admin Trade Name Naresh PRN Reason Stop Dose Admin Sodium Chloride 1,000 mls @ 100 mls/hr 03/29/17 14:31 03/30/17 02:26 Normal Saline - IV 100 mls/hr ASDIR DEB Administration Multivitamins/Minerals/Vitamin C 1 tab 03/25/17 10:00 03/30/17 12:05 Tab-A-Vit - PO 1 tab DAILY DEB Administration Nicotine 21 mg 03/25/17 10:00 03/30/17 12:06 Nicoderm Patch - TD Not Given DAILY DEB Pantoprazole Sodium 40 mg 03/27/17 18:15 03/30/17 12:06 Protonix - PO 40 mg DAILY DEB Administration Thiamine HCl 100 mg 03/25/17 10:00 03/30/17 12:05 Vitamin B1 - PO 100 mg DAILY DEB Administration Imaging: - CTAP non contrast shows 2cm calcified lymph node, hepatosplenomegaly - CT chest with multiple calcified mediastinal lymph nodes Assessment: 41 year old male with hx of diverticulitis ?sub total colectomy sent over from [facility] for ETOH abuse admitted with thrombocytopenia, hematuria, pancytopenia. 9 years ago OLM w/ uncontrolled bleeding and was told he had sarcoidosis with possible tissue bx. Plan: 1. 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 Mae 2. R/o Malignant malignancy - Elevated IGG, IGM, IGA - M spike pending 3. Hypercalcemia due to sarcoid - Will send home with mepron and prednisone 30mg daily - Corrected ca 11.7 - Keep fluids 100cc/hr 4. ETOH abuse - No active signs of withdrawal - Valium PRN - Daily thiamine/MVI 5. ARACELIS on ?CKD - 1.6 appears to be pt baseline - Continue fluids - Needs ppi for decadron 6. Microscopic hematuria - Secondary to thrombocytopenia - Outpt work up once dc - Repeat UA today 7. UTI - Bactrim BID x3 days Visit type - Emergency Visit Emergency Visit: Yes ED Registration Date: 03/24/17 Care time: The patient presented to the Emergency Department on the above date and was hospitalized for further evaluation of their emergent condition. - New Patient This patient is new to me today: No - Critical Care Critical Care patient: No
[2017-03-30] MEDS ORDERED: SULFAMETHOXAZOLE/TRIMETHOPRIM 800MG/160MG D.S. TABLET PO ONE (22:00)
[2017-03-30 23:05] LABS: URINE APPEARANCE CLEAR; URINE BILIRUBIN NEGATIVE (NEGATIVE); URINE BLOOD NEGATIVE (NEGATIVE); URINE COLOR STRAW; URINE GLUCOSE (UA) 1+ (NEGATIVE); URINE KETONE NEGATIVE (NEGATIVE); URINE LEUK ESTERASE NEGATIVE (NEGATIVE); URINE NITRITE NEGATIVE (NEGATIVE); URINE PROTEIN NEGATIVE (NEGATIVE); URINE UROBILINOGEN NEGATIVE E.U./dl (0.2-1.0)
[2017-03-30] MEDS ORDERED: diphenhydrAMINE HCL 25 MG CAPSULE (FP) PO ONE (23:07)
[2017-03-31] MEDS: SODIUM CHLORIDE 1,000 ML IV SCH (06:43)
[2017-03-31 07:26] LABS: MCH 30.3 pg (25.7-33.7); MCHC 33.7 g/dl (32.0-35.9); MEAN CELL VOLUME 89.9 fl (80-96); MEAN PLT VOLUME 8.6 fl (7.5-11.1); PLATELET COUNT 98 K/MM3 (134-434); RDW 15.3 % (11.9-15.9); WHITE BLOOD COUNT 3.7 K/mm3 (4.0-10.0)
[2017-03-31 08:02] LABS: ALBUMIN 2.8 g/dl (3.4-5.0); CALCIUM 10.4 mg/dL (8.5-10.1)
[2017-03-31 08:06] LABS: COCKROFT - GAULT 49.26; CREATININE 1.6 mg/dL (0.7-1.3); TOT PROT 8.5 g/dl (6.4-8.2)
[2017-03-31 10:25] VITALS: BP 143/69; PULSE 62; TEMP 98
[2017-03-31] MEDS: PANTOPRAZOLE 40 MG TABLET (FP) PO SCH (10:25)
[2017-03-31] MEDS: NICOTINE 21 MG/24 HOURS TOPICAL PATCH TD SCH (10:25)
[2017-03-31] MEDS: MULTIVITAMINS (DAILY MVI) TABLET (FP) PO SCH (10:25)
[2017-03-31] MEDS: THIAMINE HCL 100 MG TABLET (FP) PO SCH (10:25)
--- NOTE | 2017-03-31 12:18 | DS ---
Physical Exam: SUBJECTIVE: Patient seen and examined. He feels well, he has no complaints. He promises to follow up with his outpt appointments. OBJECTIVE: Vital Signs Period Temp Pulse Resp BP Sys/Humphrey Pulse Ox Last 24 Hr 97.6 F-98.2 F 62-67 18-20 137-143/67-75 95 PE Neuro: alert, awake, cn 2-12intact Pulm: CTAB CV: s1 s2 rrr no mrg Abd: s nt nd + bs Ext: warm, no le edema, finger clubbing Laboratory Results - last 24 hr 03/26/17 03/30/17 03/31/17 08:20 20:40 06:00 WBC 3.7 L RBC 3.42 L Hgb 10.4 L Hct 30.8 L MCV 89.9 MCHC 33.7 RDW 15.3 Plt Count 98 L D MPV 8.6 Sodium Potassium Chloride Carbon Dioxide Anion Gap BUN Creatinine Creat Clearance w eGFR Random Glucose Calcium Total Bilirubin AST ALT Alkaline Phosphatase Total Protein Albumin PTH Related Protein 3.5 Urine Color Straw Urine Appearance Clear Urine pH 6.0 Urine Protein Negative Urine Glucose (UA) 1+ H Urine Ketones Negative Urine Blood Negative Urine Nitrite Negative Urine Bilirubin Negative Urine Urobilinogen Negative Ur Leukocyte Esterase Negative 03/31/17 06:00 WBC RBC Hgb Hct MCV MCHC RDW Plt Count MPV Sodium 139 Potassium 3.7 Chloride 107 Carbon Dioxide 23 Anion Gap 9 BUN 26 H Creatinine 1.6 H Creat Clearance w eGFR 47.41 Random Glucose 88 Calcium 10.4 H Total Bilirubin 1.0 D AST 50 H ALT 60 D Alkaline Phosphatase 183 H Total Protein 8.5 H Albumin 2.8 L PTH Related Protein Urine Color Urine Appearance Urine pH Urine Protein Urine Glucose (UA) Urine Ketones Urine Blood Urine Nitrite Urine Bilirubin Urine Urobilinogen Ur Leukocyte Esterase HOSPITAL COURSE: Date of Admission:03/24/17 Date of Discharge: 03/31/17 Minutes to complete discharge: 35 Discharge Summary Reason For Visit: NEUTROPENIA Current Active Problems Alcohol dependence with uncomplicated withdrawal (Acute) Decreased platelet count (Acute) Neutropenia (Acute) Hospital Course: Initial Hospital Course: Briefly, this 41 year old male sent over from [facility] where for alcohol abuse presentsed with bleeding gums and hematuria. 9 years ago had a spontaneous nose bleed [facility] in the [place]. Only active bleeding noted is the oral mucosal lining by teeth. Denies any recent trauma. Imaging: - CTAP non contrast shows 2cm calcified lymph node, hepatosplenomegaly - CT chest with multiple calcified mediastinal lymph nodes Subsequent Hospital Course/Progress Note/Discharge Summary by a/p: Assessment: 41 year old male with hx of diverticulitis ?sub total colectomy sent over from [facility] for ETOH abuse admitted with thrombocytopenia, hematuria, pancytopenia. 9 years ago OLM w/ uncontrolled bleeding and was told he had sarcoidosis with possible tissue bx. Plan: 1. 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 Carmelita Madera [facility] [address], gold level 10am, pt aware and agrees 2. R/o Malignant malignancy - Elevated IGG, IGM, IGA - M spike pending 3. Sarcoid hypercalcemia - Will send home with mepron and prednisone 30mg daily - Corrected ca 11.7 4. ETOH abuse - No active signs of withdrawal - Valium PRN - Daily thiamine/MVI - Pt states he started drinking when his daughter 7 year old from asthma exacerbation 5. ARACELIS on ?CKD - 1.6 appears to be pt baseline 6. Microscopic hematuria - Secondary to thrombocytopenia - Outpt work up once dc - Repeat UA without blood 7. UTI - Bactrim BID x3 days Dispo: - Home with above follow up and medications - Pt aware and agrees to above plan Condition: Stable - Instructions Diet, Activity, Other Instructions: Please return to the ED for any new, persistent, or worsening symptoms. You have an appointment this Thursday04/03/17 @ 10[address] with Dr. Michelle Madera. She will continue to monitor your ITP and platelet levels [facility] [address] 1[address] [facility] Oncology clinic [phone] You will also need to follow up with Dr. Cadet (referral enclosed) to continue managing your sarcoid and TANNER level. You can also have Dr. Madera refer you to a pulmonolgist as well if you want to stay with Art Take new medications as directed they have been sent to [facility] pharmacy in [place] Referrals: Dmitry Cadet MD, MD [Staff Physician] - 2 Weeks (Follow up for sarcoid follow up ) Disposition: HOME - Home Medications Comprehensive Discharge Medication List: Ambulatory Orders Zolpidem Tartrate [Ambien] 10 mg PO HS 05/08/16 Atovaquone [Mepron Oral Solution -] 1,500 mg PO DAILY@0800 #70 ml 03/31/17 Prednisone 10 mg PO DAILY #90 tablet 03/31/17 This patient is new to me today: No Emergency Visit: Yes ED Registration Date: 03/24/17 Care time: The patient presented to the Emergency Department on the above date and was hospitalized for further evaluation of their emergent condition. Critical Care patient: No - Discharge Referral Referred to [facility] Med P.C.: No
--- NOTE | 2017-03-31 12:58 | PN ---
Progress Note (short form) - Note Progress Note: Feels OK. No CP or SOB. Progressive improvement in platelets. Intake & Output 03/28/17 03/29/17 03/30/17 03/31/17 23:59 23:59 23:59 23:59 Intake Total 625 3045 3850 1100 Output Total 820 Balance -195 3045 3850 1100 Last Vital Signs Temp Pulse Resp BP Pulse Ox 98.0 F 62 18 143/69 95 03/31/17 10:24 03/31/17 10:24 03/31/17 10:24 03/31/17 10:24 03/30/17 21:00 Active Medications Sodium Chloride (Normal Saline -) 1,000 mls @ 100 mls/hr IV ASDIR [facility] Last Admin: 03/31/17 06:43 Dose: 100 mls/hr Multivitamins/Minerals/Vitamin C (Tab-A-Vit -) 1 tab PO DAILY [facility] Last Admin: 03/31/17 10:25 Dose: 1 tab Nicotine (Nicoderm Patch -) 21 mg TD DAILY [facility] Last Admin: 03/31/17 10:25 Dose: Not Given Pantoprazole Sodium (Protonix -) 40 mg PO DAILY [facility] Last Admin: 03/31/17 10:25 Dose: 40 mg Thiamine HCl (Vitamin B1 -) 100 mg PO DAILY [facility] Last Admin: 03/31/17 10:25 Dose: 100 mg Constitutional: Yes: No Distress, Thin Eyes: Yes: Conjunctiva Clear, EOM Intact HENT: Yes: Atraumatic, Normocephalic Neck: Yes: Supple, Trachea Midline Cardiovascular: Yes: Regular Rate and Rhythm Respiratory: Yes: CTA Bilaterally. No: Accessory Muscle Use, Rales, Rhonchi, SOB, SOB on Exertion, Stridor, Tachypnea, Wheezes ...Inspection: Yes: WNL ...Clubbing: No Gastrointestinal: Yes: WNL, Normal Bowel Sounds, Soft Musculoskeletal: Yes: WNL Extremities: Yes: WNL Edema: No Peripheral Pulses WNL: Yes Integumentary: Yes: WNL Neurological: Yes: WNL, Alert, Oriented ...Motor Strength: WNL Psychiatric: Yes: WNL, Alert, Oriented Labs: Laboratory Results - last 24 hr 03/26/17 03/30/17 03/31/17 08:20 20:40 06:00 WBC 3.7 L RBC 3.42 L Hgb 10.4 L Hct 30.8 L MCV 89.9 MCHC 33.7 RDW 15.3 Plt Count 98 L D MPV 8.6 Sodium Potassium Chloride Carbon Dioxide Anion Gap BUN Creatinine Creat Clearance w eGFR Random Glucose Calcium Total Bilirubin AST ALT Alkaline Phosphatase Total Protein Albumin PTH Related Protein 3.5 Urine Color Straw Urine Appearance Clear Urine pH 6.0 Urine Protein Negative Urine Glucose (UA) 1+ H Urine Ketones Negative Urine Blood Negative Urine Nitrite Negative Urine Bilirubin Negative Urine Urobilinogen Negative Ur Leukocyte Esterase Negative 03/31/17 06:00 WBC RBC Hgb Hct MCV MCHC RDW Plt Count MPV Sodium 139 Potassium 3.7 Chloride 107 Carbon Dioxide 23 Anion Gap 9 BUN 26 H Creatinine 1.6 H Creat Clearance w eGFR 47.41 Random Glucose 88 Calcium 10.4 H Total Bilirubin 1.0 D AST 50 H ALT 60 D Alkaline Phosphatase 183 H Total Protein 8.5 H Albumin 2.8 L PTH Related Protein Urine Color Urine Appearance Urine pH Urine Protein Urine Glucose (UA) Urine Ketones Urine Blood Urine Nitrite Urine Bilirubin Urine Urobilinogen Ur Leukocyte Esterase Problem List - Problems (1) Alcohol dependence with uncomplicated withdrawal Code(s): F10.230 - ALCOHOL DEPENDENCE WITH WITHDRAWAL, UNCOMPLICATED (2) Decreased platelet count Code(s): D69.6 - THROMBOCYTOPENIA, UNSPECIFIED (3) Neutropenia Code(s): D70.9 - NEUTROPENIA, UNSPECIFIED Qualifiers: Neutropenia type: unspecified Qualified Code(s): D70.9 - Neutropenia, unspecified (4) Acute alcohol dependence syndrome Code(s): F10.20 - ALCOHOL DEPENDENCE, UNCOMPLICATED (5) Marijuana dependence Code(s): F12.20 - CANNABIS DEPENDENCE, UNCOMPLICATED (6) Nicotine dependence Code(s): F17.200 - NICOTINE DEPENDENCE, UNSPECIFIED, UNCOMPLICATED Qualifiers : Nicotine product type: cigarettes Substance use status: uncomplicated Qualified Code(s): F17.210 - Nicotine dependence, cigarettes, uncomplicated (7) Substance induced mood disorder Code(s): F19.94 - OTH PSYCHOACTIVE SUBSTANCE USE, UNSP W MOOD DISORDER (8) Crohns disease Code(s): K50.90 - CROHN'S DISEASE, UNSPECIFIED, WITHOUT COMPLICATIONS Qualifiers: Gastrointestinal tract location: unspecified location Digestive disease complication type: unspecified complication Qualified Code(s): K50.919 - Crohn's disease, unspecified, with unspecified complications (9) GERD (gastroesophageal reflux disease) Code(s): K21.9 - GASTRO-ESOPHAGEAL REFLUX DISEASE WITHOUT ESOPHAGITIS Qualifiers: Esophagitis presence: without esophagitis Qualified Code(s): K21.9 - Gastro-esophageal reflux disease without esophagitis Assessment/Plan IMP: Suspected Sarcoidosis Suspected Severe thrombocytopenia associated with hyperspleenism / (?) ITP PLAN: PO steroids At some point would need to establish a tissue diagnosis D/C planning Dr Leiva Problem List - Problems (1) Alcohol dependence with uncomplicated withdrawal Code(s): F10.230 - ALCOHOL DEPENDENCE WITH WITHDRAWAL, UNCOMPLICATED (2) Decreased platelet count Code(s): D69.6 - THROMBOCYTOPENIA, UNSPECIFIED (3) Neutropenia Code(s): D70.9 - NEUTROPENIA, UNSPECIFIED (4) Acute alcohol dependence syndrome Code(s): F10.20 - ALCOHOL DEPENDENCE, UNCOMPLICATED (5) Marijuana dependence Code(s): F12.20 - CANNABIS DEPENDENCE, UNCOMPLICATED (6) Nicotine dependence Code(s): F17.200 - NICOTINE DEPENDENCE, UNSPECIFIED, UNCOMPLICATED Qualifiers : Nicotine product type: cigarettes Substance use status: uncomplicated Qualified Code(s): F17.210 - Nicotine dependence, cigarettes, uncomplicated (7) Substance induced mood disorder Code(s): F19.94 - OTH PSYCHOACTIVE SUBSTANCE USE, UNSP W MOOD DISORDER (8) Crohns disease Code(s): K50.90 - CROHN'S DISEASE, UNSPECIFIED, WITHOUT COMPLICATIONS Qualifiers: Gastrointestinal tract location: unspecified location Digestive disease complication type: unspecified complication Qualified Code(s): K50.919 - Crohn's disease, unspecified, with unspecified complications (9) GERD (gastroesophageal reflux disease) Code(s): K21.9 - GASTRO-ESOPHAGEAL REFLUX DISEASE WITHOUT ESOPHAGITIS Qualifiers: Esophagitis presence: without esophagitis Qualified Code(s): K21.9 - Gastro-esophageal reflux disease without esophagitis
[2017-04-01 16:25] LABS: Hgb A2 3.7 % (0.7-3.1)
[2017-04-02 00:06] LABS: ALBUMIN FOR UPE 22.5 % (.); M-SPIKE, % Comment: % (Not Observed)
[2017-04-03 00:07] LABS: A/G RATIO 0.7 (0.7-1.7); ALBUMIN 3.2 g/dL (2.9-4.4); GLOBULIN, TOTAL 4.3 g/dL (2.2-3.9); M-SPIKE Not Observed g/dL (Not Observed); TOTAL PROTEIN 7.5 g/dL (6.0-8.5)
== END 2017-03-31 13:30 | disposition home or self-care (01) | DRG 661 ==
LOC: JER 12:23 → JERBED 16:05 → J4S 21:57 → J7W 03-28 21:25
PROVIDERS: ADMIT Internal Medicine; ATTEND Nurse Practitioner Acute Care
PROC: HZ2ZZZZ Detoxification Services for Substance Abuse Treatment (ICD-10-PCS; principal; 2017-03-24)
DX: D69.3 Immune thrombocytopenic purpura (principal); D70.9 Neutropenia, unspecified; E83.52 Hypercalcemia; N17.9 Acute kidney failure, unspecified; R31.29 Other microscopic hematuria; N39.0 Urinary tract infection, site not specified; K21.9 Gastro-esophageal reflux disease without esophagitis; F17.210 Nicotine dependence, cigarettes, uncomplicated; E83.42 Hypomagnesemia; D61.818 Other pancytopenia; F10.239 Alcohol dependence with withdrawal, unspecified; N18.9 Chronic kidney disease, unspecified; D73.1 Hypersplenism; F12.20 Cannabis dependence, uncomplicated
CPT/HCPCS: 36415; 36430; 71010-TC; 71250-TC; 74176-TC; 80053; 80061; 81003; 81015; 82150; 82164; 82397; 82550; 82553; 82607; 82728; 82747; 82784; 83021; 83540; 83550; 83615; 83690; 83721; 83735; 83880; 83970; 84100; 84155; 84156; 84157; 84165; 84439; 84443; 84484; 84550; 85014; 85025; 85027; 85044; 85384; 85610; 85651; 85660; 85730; 86038; 86140; 86431; 86704; 86705; 86706; 86707; 86850; 86900; 86901; 87040; 87077; 87086; 87340; 87350; 87389; 88300-TC; 93005; 93010; 99283-25; J1459; P9034; P9038; Q9967

== ENCOUNTER 2019-10-25 10:43 | Inpatient (IN) | payer OTHER ==
[2019-10-25 11:06] VITALS: BMI 18.7
--- NOTE | 2019-10-25 11:46 | HP ---
CIWA Score Nausea/Vomitin Muscle Tremors: 3 Anxiety: 3 Agitation: 3 Paroxysmal Sweats: 1-Minimal Palms Moist Orientation: 0-Oriented Tacttile Disturbances: 0-None Auditory Disturbances: 0-None Visual Disturbances: 1-Very Mild Sensitivity Headache: 2-Mild CIWA-Ar Total Score: 15 - Admission Criteria OASAS Guidelines: Admission for Medically Managed Detox: Requires at least one of the followin. CIWA greater than 12 2. Seizures within the past 24 hours 3. Delirium tremens within the past 24 hours 4. Hallucinations within the past 24 hours 5. Acute intervention needed for co occurring medical disorder 6. Acute intervention needed for co occurring psychiatric disorder 7. Severe withdrawal that cannot be handled at a lower level of care (continued vomiting, continued diarrhea, abnormal vital signs) requiring intravenous medication and/or fluids 8. Admitting History and Physical - Admission Chief Complaint: i need help to stop drinking alcohol History of Present Illness: this 44 years old male with alcohol dependence,seeking help,seen in [facility] 10/24/19 after a fall,discharge this morning, stated has syncope,after drinking ,fell,injury to right knee and abrasion denied seizure syncope alcohol related frequent fall,last rehab 08/05/18 to 08/10/18 weight loss longest sobriety 6 months homeless possible rehab after detox History Source: Patient Limitations to Obtaining History: No Limitations - Past Medical History STILL CLEANER: Yes: Syncope Cardiovascular: Yes: Other (valve replacement in 02/18 at [facility]) - Past Surgical History Additional Past Surgical History: open heart surgery with valve replacement in 02/18 - Smoking History Smoking history: Current every day smoker Have you smoked in the past 12 months: Yes Aproximately how many cigarettes per day: 3 - Alcohol/Substance Use Hx Alcohol Use: Yes (1- 1.5 pint daily) - Social History Usual Living Arrangement: Yes: Other (homeless) ADL: Support Services Occupation: unemployed History of Recent Travel: No Other Social History: this 44 years old male with alhol dependence,unemployed, homeless,. seen in [facility] [place] 10/24/[address] of head,xray of right knee,chest xry done,refer for detox Admission ROS BHS - HPI Chief Complaint: i need help to stop drinking alcohol Allergies/Adverse Reactions: Allergies Allergy/AdvReac Type Severity Reaction Status Date / Time aspirin Allergy Intermediate Rash Verified 10/25/19 10:59 Penicillins Allergy Hives Verified 10/25/19 10:59 milk AdvReac DIARRHEA Verified 10/25/19 10:59 History of Present Illness: the 44 years old male with alcohol dependence,seeking detox,seen in [facility] yesterday after syncope and a fall had open heart surgery for valve replacement in 02/18 [place] weight [facility] syncope denied seizure frequent fall last treatment [facility] rehab 08/05/19 to 08/10/18 longest sobriety 6 months asthma Exam Limitations: No Limitations - Ebola screening Have you traveled outside of the country in the last 21 days: No Have you had contact with anyone from an Ebola affected area: No Do you have a fever: No - Review of Systems Constitutional: Loss of Appetite, Malaise, Night Sweats, Changes in sleep, Weakness, Unintentional Wgt. Loss EENT: reports: Nose Congestion Respiratory: reports: No Symptoms reported Cardiac: reports: Other (open heart surgey with valve replacement in 02/18 [facility]) GI: reports: Nausea, Poor Appetite, Abdominal cramping : reports: No Symptoms Reported Musculoskeletal: reports: Back Pain, Muscle Pain Integumentary: reports: Dryness Neuro: reports: Headache, Tremors Endocrine: reports: No Symptoms Reported Hematology: reports: No Symptoms Reported Psychiatric: reports: No Sypmtoms Reported, Judgement Intact, Mood/Affect Appropiate, Orientated x3 Other Systems: Reviewed and Negative Patient History - Patient Medical History Hx Anemia: Yes Hx Asthma: Yes (Pt was on MDI in past.) Hx Chronic Obstructive Pulmonary Disease (COPD): No Hx Cancer: No Hx Cardiac Disorders: No Hx Congestive Heart Failure: No Hx Hypertension: Yes (no med) Hx Hypercholesterolemia: No Hx Pacemaker: No HX Cerebrovascular Accident: No Hx Seizures: No Hx Dementia: No Hx Diabetes: No Hx Gastrointestinal Disorders: Yes (Crohn's disease. Currently Asymptomatic. No Current Treatment.) Hx Liver Disease: No Hx Genitourinary Disorders: No Hx Sexually Transmitted Disorders: No Hx Renal Disease (ESRD): No Hx Thyroid Disease: No Hx Human Immunodeficiency Virus (HIV): No (NEGATIVE HX; Last tested: 04/20 ) Hx Hepatitis C: No (NEGATIVE HX; Last tested: 04/2016.) Hx Depression: No Hx Suicide Attempt: No Hx Bipolar Disorder: No Hx Schizophrenia: No Other Medical History: no suicidal,o homicidal, - Patient Surgical History Past Surgical History: No Hx Neurologic Surgery: No Hx Cataract Extraction: No Hx Cardiac Surgery: Yes (open heart surgery with valve replacement in 02/18 [facility]) Hx Lung Surgery: No Hx Breast Surgery: No Hx Breast Biopsy: No Hx Abdominal Surgery: Yes (Partial removal of Colon due to Crohn's Disease in 2004.) Hx Appendectomy: No Hx Cholecystectomy: No Hx Genitourinary Surgery: No Hx Section: No Hx Orthopedic Surgery: No Anesthesia Reaction: No - PPD History Previous Implant?: Yes Documented Results: Negative w/o proof Implanted On Prior [facility] Admission?: Yes Date: 08/07/18 Results: 0 mm PPD to be Administered?: Yes - Smoking Cessation Smoking history: Current every day smoker Have you smoked in the past 12 months: Yes Aproximately how many cigarettes per day: 3 If you are a former smoker, when did you quit?: 12 MONTHS Cigars Per Day: 0 Hx Chewing Tobacco Use: No Initiated information on smoking cessation: Yes 'Breaking Loose' booklet given: 10/25/19 - Substance & Tx. History Hx Alcohol Use: Yes Hx Substance Use: No Substance Use Type: Alcohol Hx Substance Use Treatment: Yes ([facility] 08/05/18 to 08/10/18) - Substances abused Alcohol Substance route: Oral Frequency: Daily Amount used: 2 PINTS [place] ICED TEA,MIXTURES OF LIQUORS Age of first use: 19 Date of last use: 10/24/19 Admission Physical Exam BHS - Vital Signs Vital Signs: Vital Signs - 24 hr 10/25/19 11:01 Temperature 99.2 F Pulse Rate 101 H Respiratory 18 Rate Blood Pressure 166/103 H - Physical General Appearance: Yes: Moderate Distress, Tremorous, Irritable, Sweating, Anxious HEENTM: Yes: Normal ENT Inspection, TAMIR, Pharynx Normal Respiratory: Yes: Lungs Clear, Normal Breath Sounds, No Respiratory Distress Neck: Yes: Within Normal Limits, Supple, Trachea in good position Breast: Yes: Within Normal Limits Cardiology: Yes: Within Normal Limits, Regular Rhythm, Regular Rate, S1, S2, Murmur, Surgical Scar Abdominal: Yes: Within Normal Limits, Normal Bowel Sounds, Non Tender, Flat, Soft Genitourinary: Yes: Within Normal Limits Back: Yes: Muscle Spasm Musculoskeletal: Yes: Within Normal Limits, Back pain, Muscle Pain Extremities: Yes: Tremors Neurological: Yes: nuclear medicine pet ct technologist II-XII NML intact, Motor Strength 5/5 Integumentary: Yes: Dry, Other (abrasion of righ knee) Lymphatic: Yes: Within Normal Limits - Diagnostic (1) Alcohol dependence with uncomplicated withdrawal Current Visit: No Status: Acute (2) Heart murmur Current Visit: No Status: Acute (3) Nicotine dependence Current Visit: No Status: Acute Qualifiers: Nicotine product type: cigarettes Substance use status: uncomplicated Qualified Code(s): F17.210 - Nicotine dependence, cigarettes, uncomplicated (4) Weight loss Current Visit: No Status: Acute (5) Asthma Current Visit: No Status: Chronic Qualifiers: Asthma severity: mild intermittent Asthma complication type: with status asthmaticus (6) History of partial surgical removal of colon Current Visit: No Status: Chronic (7) Syncope Current Visit: Yes Status: Acute (8) Abrasion Current Visit: Yes Status: Acute (9) History of open heart surgery Current Visit: Yes Status: Acute (10) Crohn's disease in remission Current Visit: Yes Status: Acute Cleared for Admission S - Detox or Rehab [facility] Level of Care: Medically Managed Detox Regimen/Protocol: Librium Breathalyzer - Breathalyzer Breathalyzer: 0 Urine Drug Screen - Test Device Lot number: [id number] Expiration date: 05/31/21 - Control Is test valid?: Yes - Results Drug screen NEGATIVE: No Urine drug screen results: BZO-Benzodiazepines Inpatient Rehab Admission - Rehab Decision to Admit Inpatient rehab admission?: No
[2019-10-25] MEDS ORDERED: chlordiazePOXIDE HCL 25 MG CAPSULE PO PRN (12:10)
[2019-10-25] MEDS ORDERED: MAG HYDROX/AL HYDROX/SIMETH 30 ML UNIT-DOSE CUP PO PRN (12:10)
[2019-10-25] MEDS ORDERED: MENTHOL/PHENOL 1 EACH UD MM PRN (12:10)
[2019-10-25] MEDS ORDERED: BISMUTH SUBSALICYLATE 524 MG/30 ML UD PO PRN (12:10)
[2019-10-25] MEDS ORDERED: METHOCARBAMOL 500 MG TABLET PO PRN (12:10)
[2019-10-25] MEDS ORDERED: MAGNESIUM HYDROX 2400MG/30ML ORAL SUSPENSION 30 ML CUP PO PRN (12:10)
[2019-10-25] MEDS ORDERED: MELATONIN 5 MG TABLETS PO PRN (12:10)
[2019-10-25] MEDS ORDERED: hydrOXYzine PAMOATE 25 MG CAPSULE (FP) PO PRN (12:10)
[2019-10-25] MEDS ORDERED: IBUPROFEN 400 MG TABLET (FP) PO PRN (12:10)
[2019-10-25] MEDS ORDERED: MAGNESIUM CITRATE 300 ML BOTTLE PO PRN (12:10)
[2019-10-25] MEDS ORDERED: ACETAMINOPHEN 325 MG TABLET (FP) PO PRN ×2 (12:10)
[2019-10-25] MEDS: BACITRACIN 15 GM TUBE TOPICAL OINTMENT TP SCH ×2 (13:58→23:47)
[2019-10-25 15:46] LABS: HEMATOCRIT 34.1 % (35.4-49); HEMOGLOBIN 11.3 GM/dL (11.7-16.9); MCH 29.7 pg (25.7-33.7); MCHC 33.1 g/dl (32.0-35.9); MEAN CELL VOLUME 89.6 fl (80-96); MEAN PLT VOLUME 6.8 fl (7.5-11.1); PLATELET COUNT 124 K/MM3 (134-434); RBC 3.81 M/mm3 (4.00-5.60); RDW 15.1 % (11.9-15.9)
--- NOTE | 2019-10-25 15:46 | EKG ---
Test Reason : Blood Pressure : / mmHG Vent. Rate : 084 BPM Atrial Rate : 084 BPM P-R Int : 132 ms QRS Dur : 106 ms QT Int : 382 ms P-R-T Axes : 060 019 071 degrees QTc Int : 451 ms NORMAL SINUS RHYTHM MODERATE VOLTAGE CRITERIA FOR LVH, MAY BE NORMAL VARIANT CANNOT RULE OUT SEPTAL INFARCT , AGE UNDETERMINED ABNORMAL ECG WHEN COMPARED WITH ECG OF 05-AUG-2018 18:13, T WAVE INVERSION LESS EVIDENT IN ANTERIOR LEADS Confirmed by MD Jerman, Royer ([id number]) on 10/25/2019 3:46:26 PM Referred By: Confirmed By:Royer Stoll MD
[2019-10-25 15:51] LABS: ALBUMIN 3.3 g/dl (3.4-5.0); BLOOD UREA NITROGEN 15.8 mg/dL (7-18); CALCIUM 8.9 mg/dL (8.5-10.1); CREATININE 1.4 mg/dL (0.55-1.3); POTASSIUM 3.9 mmol/L (3.5-5.1); TOT PROT 8.4 g/dl (6.4-8.2)
[2019-10-25 15:52] LABS: WHITE BLOOD COUNT 1.8 K/mm3 (4.0-10.0)
[2019-10-25] MEDS: chlordiazePOXIDE HCL 25 MG CAPSULE PO SCH ×2 (18:03→23:47)
[2019-10-25] MEDS: THIAMINE HCL 100 MG TABLET (FP) PO SCH (23:47)
[2019-10-26] MEDS: chlordiazePOXIDE HCL 25 MG CAPSULE PO SCH ×4 (07:06→23:09)
[2019-10-26] MEDS: BACITRACIN 15 GM TUBE TOPICAL OINTMENT TP SCH ×2 (10:40→23:09)
[2019-10-26] MEDS: PRENATAL VITAMINS W/ FOLIC ACID TABLET (FP) PO SCH (10:40)
--- NOTE | 2019-10-26 11:27 | PN ---
[facility] CIWA - CIWA Score Nausea/Vomitin-No Nausea/No Vomiting Muscle Tremors: 3 Anxiety: 3 Agitation: 4-Moderately Restless Paroxysmal Sweats: 3 Orientation: 0-Oriented Tacttile Disturbances: 0-None Auditory Disturbances: 0-None Visual Disturbances: 0-None Headache: 0-None Present CIWA-Ar Total Score: 13 S Progress Note (SOAP) Subjective: sweats difficulty swallowing it hurts when I do shakes interrupted sleep Objective: 10/26/19 11:25 Vital Signs Temperature 99.1 F 10/26/19 09:19 Pulse Rate 88 10/26/19 09:19 Respiratory Rate 18 10/26/19 09:19 Blood Pressure 164/98 10/26/19 09:19 O2 Sat by Pulse Oximetry (%) Laboratory Tests 10/25/19 10/25/19 10/25/19 11:45 11:45 11:45 WBC 1.8 L* RBC 3.81 L Hgb 11.3 L Hct 34.1 L MCV 89.6 MCH 29.7 MCHC 33.1 RDW 15.1 Plt Count 124 L MPV 6.8 L Sodium 140 Potassium 3.9 Chloride 108 H Carbon Dioxide 27 Anion Gap 5 L BUN 15.8 Creatinine 1.4 H Est GFR (CKD-EPI)AfAm 69.34 Est GFR (CKD-EPI)NonAf 59.83 Random Glucose 63 L Calcium 8.9 Total Bilirubin 2.0 H AST 94 H ALT 43 Alkaline Phosphatase 226 H Total Protein 8.4 H Albumin 3.3 L RPR Titer Nonreactive labs noted thrombocytopenia 1.8 low H:H aaox3 ambulating no acute distress Assessment: 10/26/19 11:25 withdrawals throat assessed; white caked on thrush looking noted to tongue and throat. Plan: continue detox iron supplement tid ordered mycelex troches ordered increase fluids repeat labs
[2019-10-26] MEDS: FERROUS SO4 325 MG TABLET (FP) PO SCH ×2 (13:48→17:11)
[2019-10-26] MEDS: CLOTRIMAZOLE 10 MG TROCHE (FP) PO SCH ×3 (14:57→23:09)
[2019-10-26] MEDS ORDERED: cloNIDine HCL 0.1 MG TABLET PO ONE (19:11)
--- NOTE | 2019-10-26 19:13 | PN ---
S Progress Note Note: bp 157/92 will give 0.1 mg po now,no complaint close monitoring vital sing monitoring
[2019-10-26] MEDS: THIAMINE HCL 100 MG TABLET (FP) PO SCH (23:09)
[2019-10-27] MEDS: chlordiazePOXIDE HCL 25 MG CAPSULE PO SCH ×2 (06:59→11:26)
[2019-10-27] MEDS: CLOTRIMAZOLE 10 MG TROCHE (FP) PO SCH ×5 (07:42→22:45)
[2019-10-27] MEDS: FERROUS SO4 325 MG TABLET (FP) PO SCH ×3 (07:43→17:14)
[2019-10-27] MEDS: BACITRACIN 15 GM TUBE TOPICAL OINTMENT TP SCH ×2 (11:16→22:48)
[2019-10-27] MEDS: PRENATAL VITAMINS W/ FOLIC ACID TABLET (FP) PO SCH (11:17)
--- NOTE | 2019-10-27 11:26 | PN ---
[facility] CIWA - CIWA Score Nausea/Vomitin-No Nausea/No Vomiting Muscle Tremors: 3 Anxiety: 3 Agitation: 3 Paroxysmal Sweats: 2 Orientation: 0-Oriented Tacttile Disturbances: 0-None Auditory Disturbances: 0-None Visual Disturbances: 0-None Headache: 0-None Present CIWA-Ar Total Score: 11 S Progress Note (SOAP) Subjective: sweats shakes I dont want the librium please change it to a different medication for detox. Objective: 10/27/19 11:24 Vital Signs Temperature 97.9 F 10/27/19 09:15 Pulse Rate 79 10/27/19 09:15 Respiratory Rate 18 10/27/19 09:15 Blood Pressure 150/103 H 10/27/19 09:15 O2 Sat by Pulse Oximetry (%) Laboratory Tests 10/25/19 10/25/19 10/25/19 11:45 11:45 11:45 WBC 1.8 L* RBC 3.81 L Hgb 11.3 L Hct 34.1 L MCV 89.6 MCH 29.7 MCHC 33.1 RDW 15.1 Plt Count 124 L MPV 6.8 L Sodium 140 Potassium 3.9 Chloride 108 H Carbon Dioxide 27 Anion Gap 5 L BUN 15.8 Creatinine 1.4 H Est GFR (CKD-EPI)AfAm 69.34 Est GFR (CKD-EPI)NonAf 59.83 Random Glucose 63 L Calcium 8.9 Total Bilirubin 2.0 H AST 94 H ALT 43 Alkaline Phosphatase 226 H Total Protein 8.4 H Albumin 3.3 L RPR Titer Nonreactive labs noted low H:H noted; iron supplement ordered aaox3 ambulating no acute distress elevated BP noted; norvasc ordered Assessment: 10/27/19 11:25 withdrawals Plan: d/c librium; valium regimen protocol initiated norvasc ordered increase fluids
[2019-10-27] MEDS ORDERED: amLODIPine BESYLATE 10 MG TABLET (FP) PO ONE (11:40)
[2019-10-27] MEDS: diazePAM 5 MG TABLET PO PRN ×2 (12:26→17:17)
[2019-10-27] MEDS: THIAMINE HCL 100 MG TABLET (FP) PO SCH (22:45)
[2019-10-27] MEDS: diazePAM 5 MG TABLET PO SCH (22:45)
[2019-10-28] MEDS ORDERED: chlordiazePOXIDE HCL 10 MG CAPSULE PO PRN
[2019-10-28] MEDS ORDERED: chlordiazePOXIDE HCL 10 MG CAPSULE PO SCH (05:00)
[2019-10-28] MEDS: CLOTRIMAZOLE 10 MG TROCHE (FP) PO SCH ×5 (07:08→21:13)
[2019-10-28] MEDS: FERROUS SO4 325 MG TABLET (FP) PO SCH ×3 (07:09→17:11)
[2019-10-28] MEDS: BACITRACIN 15 GM TUBE TOPICAL OINTMENT TP SCH ×2 (10:44→21:18)
[2019-10-28] MEDS: amLODIPine BESYLATE 5 MG TABLET (FP) PO SCH (10:45)
[2019-10-28] MEDS: PRENATAL VITAMINS W/ FOLIC ACID TABLET (FP) PO SCH (10:45)
[2019-10-28] MEDS: diazePAM 5 MG TABLET PO SCH ×2 (10:45→21:13)
--- NOTE | 2019-10-28 11:16 | PN ---
S CIWA - CIWA Score Nausea/Vomitin-No Nausea/No Vomiting Muscle Tremors: 3 Anxiety: 2 Agitation: 2 Paroxysmal Sweats: 2 Orientation: 0-Oriented Tacttile Disturbances: 0-None Auditory Disturbances: 0-None Visual Disturbances: 0-None Headache: 0-None Present CIWA-Ar Total Score: 9 BHS Progress Note (SOAP) Subjective: sweats mild shakes throat feeling better Objective: 10/28/19 11:15 Vital Signs Temperature 98.2 F 10/28/19 09:20 Pulse Rate 94 H 10/28/19 09:20 Respiratory Rate 18 10/28/19 09:20 Blood Pressure 142/95 10/28/19 09:20 O2 Sat by Pulse Oximetry (%) Laboratory Tests 10/25/19 10/25/19 10/25/19 11:45 11:45 11:45 WBC 1.8 L* RBC 3.81 L Hgb 11.3 L Hct 34.1 L MCV 89.6 MCH 29.7 MCHC 33.1 RDW 15.1 Plt Count 124 L MPV 6.8 L Sodium 140 Potassium 3.9 Chloride 108 H Carbon Dioxide 27 Anion Gap 5 L BUN 15.8 Creatinine 1.4 H Est GFR (CKD-EPI)AfAm 69.34 Est GFR (CKD-EPI)NonAf 59.83 Random Glucose 63 L Calcium 8.9 Total Bilirubin 2.0 H AST 94 H ALT 43 Alkaline Phosphatase 226 H Total Protein 8.4 H Albumin 3.3 L RPR Titer Nonreactive aaox3 ambulating no acute distress Assessment: 10/28/19 11:16 withdrawals Plan: continue detox increase fluids
[2019-10-28] MEDS: THIAMINE HCL 100 MG TABLET (FP) PO SCH (21:13)
[2019-10-29] MEDS ORDERED: chlordiazePOXIDE HCL 10 MG CAPSULE PO SCH (05:00)
[2019-10-29] MEDS ORDERED: diazePAM 5 MG TABLET PO SCH (06:00)
[2019-10-29] MEDS: CLOTRIMAZOLE 10 MG TROCHE (FP) PO SCH ×3 (07:25→13:39)
[2019-10-29] MEDS: FERROUS SO4 325 MG TABLET (FP) PO SCH ×2 (09:00→12:00)
[2019-10-29] MEDS: BACITRACIN 15 GM TUBE TOPICAL OINTMENT TP SCH (11:00)
[2019-10-29] MEDS: amLODIPine BESYLATE 5 MG TABLET (FP) PO SCH (11:00)
[2019-10-29] MEDS: PRENATAL VITAMINS W/ FOLIC ACID TABLET (FP) PO SCH (11:00)
[2019-10-29 13:25] VITALS: BP 138/88; PULSE 95; TEMP 98.2
--- NOTE | 2019-10-29 14:04 | PN ---
[facility] CIWA - CIWA Score Nausea/Vomitin-No Nausea/No Vomiting Muscle Tremors: None Anxiety: 1-Mildly Anxious Agitation: 1-Slight > Activity Paroxysmal Sweats: No Perspiration Orientation: 0-Oriented Tacttile Disturbances: 0-None Auditory Disturbances: 0-None Visual Disturbances: 0-None Headache: 0-None Present CIWA-Ar Total Score: 2 BHS Progress Note (SOAP) Subjective: Patient denies current Withdrawal / Detox symptoms and reports that he feels well overall at this time. Objective: PATIENT A & O X 3, OBSERVED AMBULATING ON DETOX UNIT UNASSISTED. IN NO ACUTE DISTRESS. 10/29/19 13:58 Vital Signs Temperature 98.2 F 10/29/19 13:25 Pulse Rate 95 H 10/29/19 13:25 Respiratory Rate 18 10/29/19 13:25 Blood Pressure 138/88 10/29/19 13:25 O2 Sat by Pulse Oximetry (%) Laboratory Tests 10/25/19 10/25/19 10/25/19 11:45 11:45 11:45 WBC 1.8 L* RBC 3.81 L Hgb 11.3 L Hct 34.1 L MCV 89.6 MCH 29.7 MCHC 33.1 RDW 15.1 Plt Count 124 L MPV 6.8 L Sodium 140 Potassium 3.9 Chloride 108 H Carbon Dioxide 27 Anion Gap 5 L BUN 15.8 Creatinine 1.4 H Est GFR (CKD-EPI)AfAm 69.34 Est GFR (CKD-EPI)NonAf 59.83 Random Glucose 63 L Calcium 8.9 Total Bilirubin 2.0 H AST 94 H ALT 43 Alkaline Phosphatase 226 H Total Protein 8.4 H Albumin 3.3 L RPR Titer Nonreactive LABS NOTED. Assessment: 10/29/19 14:04 WITHDRAWAL SYMPTOMS. PANCYTOPENIA. HYPERBILIRUBINEMIA. ELEVATED AST AND ALK. PHOS. LEVELS. AZOTEMIA. HYPERTENSION. 10/29/19 14:05 Plan: CONTINUE DETOX. PATIENT ADVISED TO FOLLOW-UP WITH [facility] DR. ROSE ([place], [place]) AFTER DISCHARGE FROM DETOX FOR MEDICAL ASSESSMENT AND FOR PANCYTOPENIA, FOR ELEVATED AST, ALK. PHOS., TOTAL BILIRUBIN, AND CREATININE LEVELS NOTED ON DETOX ADMISSION LABORATORY ASSESSMENT. PATIENT ALSO ADVISED TO CONSULT DR. ROSE ABOUT ELEVATED BLOOD PRESSURE READINGS NOTED DURING DETOX ADMISSION. PATIENT VERBALIZED UNDERSTANDING OF RECOMMENDATION. COPIES OF RESULTS OF ALL LABS DRAWN WHILE ADMITTED FOR DETOX GIVEN TO PATIENT AT TIME OF DISCHARGE FROM DETOX UNIT.
--- NOTE | 2019-10-29 16:42 | DS ---
[facility] Detox Discharge Summary Admission Date: 10/25/19 Discharge Date: 10/29/19 - History Present History: Alcohol Dependence Additional Comments: DESPITE EFFORTS BY [employer] AND BY NURSING STAFF TO ADDRESS PATIENT'S MEDICAL NEEDS / CONCERNS, PATIENT DOES NOT WISH TO REMAIN TO COMPLETE DETOX REGIMEN. RISKS OF LEAVING DETOX UNIT AGAINST MEDICAL ADVICE AND PRIOR TO COMPLETION OF DETOX REGIMEN EXPLAINED TO PATIENT. PATIENT ADVISED TO GO IMMEDIATELY TO NEAREST ER SHOULD ANY INTOLERABLE WITHDRAWAL / DETOX SYMPTOMS DEVELOP AT ANY TIME. PATIENT VERBALIZED UNDERSTANDING OF ALL INFORMATION / RECOMMENDATIONS PRESENTED TO HIM PRIOR TO DEPARTURE FROM DETOX UNIT. PRESCRIPTION FOR AMLODIPINE SENT TO [facility] ([place], [place]) FOR FOR AFTERCARE UNTIL PATIENT IS ABLE TO GET IN TO SEE PRIMARY CARE MEDICAL PROVIDER DR. ROSE FOR FOLLOW-UP EVALUATION. FOR PATIENT LEFT DETOX UNIT IN STABLE MEDICAL CONDITION. Pertinent Past History: Pancytopenia, Hyperbilirubinemia, Elevated AST Level, Elevated Alkaline Phosphatase Level, Hypertension, Asthma, History of Crohn's Disease, History of Heart Murmur, Nicotine Dependence, Weight Loss, History of Partial Removal Of Colon, History of Syncope, History of Open Heart Surgery, Azotemia. - Physical Exam Results Vital Signs: Vital Signs Temperature 98.2 F 10/29/19 13:25 Pulse Rate 95 H 10/29/19 13:25 Respiratory Rate 18 10/29/19 13:25 Blood Pressure 138/88 10/29/19 13:25 O2 Sat by Pulse Oximetry (%) Pertinent Admission Physical Exam Findings: WITHDRAWAL SYMPTOMS. Laboratory Tests 10/25/19 10/25/19 10/25/19 11:45 11:45 11:45 WBC 1.8 L* RBC 3.81 L Hgb 11.3 L Hct 34.1 L MCV 89.6 MCH 29.7 MCHC 33.1 RDW 15.1 Plt Count 124 L MPV 6.8 L Sodium 140 Potassium 3.9 Chloride 108 H Carbon Dioxide 27 Anion Gap 5 L BUN 15.8 Creatinine 1.4 H Est GFR (CKD-EPI)AfAm 69.34 Est GFR (CKD-EPI)NonAf 59.83 Random Glucose 63 L Calcium 8.9 Total Bilirubin 2.0 H AST 94 H ALT 43 Alkaline Phosphatase 226 H Total Protein 8.4 H Albumin 3.3 L RPR Titer Nonreactive LABS NOTED. - Medication Discharge Medications: Ambulatory Orders Amlodipine Besylate [Norvasc -] 5 mg PO DAILY 7 Days #7 tablet 10/29/19 - Diagnosis (1) Abrasion Current Visit: Yes Status: Acute (2) Azotemia Current Visit: Yes Status: Acute (3) Crohn's disease in remission Current Visit: Yes Status: Chronic (4) Elevated alkaline phosphatase level Current Visit: Yes Status: Acute (5) Elevated aspartate aminotransferase level Current Visit: Yes Status: Acute (6) History of open heart surgery Current Visit: Yes Status: Acute (7) Hyperbilirubinemia Current Visit: Yes Status: Acute (8) Pancytopenia Current Visit: Yes Status: Acute (9) Syncope Current Visit: Yes Status: Acute Qualifiers: Syncope type: unspecified Qualified Code(s): R55 - Syncope and collapse (10) Alcohol dependence with uncomplicated withdrawal Current Visit: Yes Status: Acute (11) Nicotine dependence Current Visit: Yes Status: Acute Qualifiers: Nicotine product type: cigarettes Substance use status: uncomplicated Qualified Code(s): F17.210 - Nicotine dependence, cigarettes, uncomplicated (12) Weight loss Current Visit: Yes Status: Acute (13) Asthma Current Visit: Yes Status: Chronic Qualifiers: Asthma severity: unspecified severity Asthma persistence: unspecified Asthma complication type: uncomplicated Qualified Code(s): J45.909 - Unspecified asthma, uncomplicated (14) History of partial surgical removal of colon Current Visit: Yes Status: Chronic - AMA Did Patient Leave Against Medical Advice: Yes (PATIENT DID NOT WISH TO REMAIN TO COMPLETE DETOX REGIMEN.)
[2019-10-30] MEDS ORDERED: chlordiazePOXIDE HCL 10 MG CAPSULE PO ONE (05:00)
[2019-10-30] MEDS ORDERED: diazePAM 5 MG TABLET PO ONE (06:00)
== END 2019-10-29 05:35 | disposition left against medical advice (07) | DRG 770 ==
LOC: YASAS 10:43 → Y6N 13:05
PROVIDERS: ADMIT Allergy & Immunology; ATTEND Allergy & Immunology
PROC: HZ2ZZZZ Detoxification Services for Substance Abuse Treatment (ICD-10-PCS; principal; 2019-10-25)
DX: F10.230 Alcohol dependence with withdrawal, uncomplicated (principal); F17.210 Nicotine dependence, cigarettes, uncomplicated; I10 Essential (primary) hypertension; B37.0 Candidal stomatitis; D69.6 Thrombocytopenia, unspecified; D64.9 Anemia, unspecified; J45.909 Unspecified asthma, uncomplicated; R79.89 Other specified abnormal findings of blood chemistry; R74.0 Nonspecific elevation of levels of transaminase and lactic acid dehydrogenase [LDH]; R01.1 Cardiac murmur, unspecified; R63.4 Abnormal weight loss; E80.6 Other disorders of bilirubin metabolism; Z87.19 Personal history of other diseases of the digestive system; Z98.890 Other specified postprocedural states; Z88.0 Allergy status to penicillin; Z88.6 Allergy status to analgesic agent; Z91.011 Allergy to milk products; Z59.0 Homelessness
CPT/HCPCS: 36415; 80053; 85027; 86593; 93005; 93010; J0735

== ENCOUNTER 2023-11-11 14:45 | Inpatient (IN) | payer OTHER ==
[2023-11-11 15:30] VITALS: BMI 16.9
[2023-11-11] MEDS ORDERED: NALOXONE HCL (KLOXXADO) 8 MG SPRAY NS PRN (19:47)
[2023-11-11] MEDS ORDERED: BENZONATATE 200 MG CAPSULE PO PRN (19:47)
[2023-11-11] MEDS ORDERED: NICOTINE POLACRILEX 2 MG LOZENGE BC PRN (19:47)
[2023-11-11] MEDS ORDERED: ACETAMINOPHEN 325 MG TABLET (FP) PO PRN (19:47)
[2023-11-11] MEDS ORDERED: IBUPROFEN 600 MG TABLET (FP) PO PRN (19:47)
[2023-11-11] MEDS ORDERED: POLYETHYLENE GLYCOL (HEALTHYLAX) 3350 17 GM PACKET PO PRN (19:47)
[2023-11-11] MEDS ORDERED: guaiFENesin 600 MG TABLET.ER (FP) PO PRN (19:47)
[2023-11-11] MEDS ORDERED: NALOXONE HCL 0.4 MG/ML VIAL IM PRN (19:47)
[2023-11-11] MEDS ORDERED: BENZOCAINE/MENTHOL (CHLORASEPTIC ) LOZENGE MM PRN (19:47)
[2023-11-11] MEDS ORDERED: IBUPROFEN 400 MG TABLET (FP) PO PRN (19:47)
[2023-11-11] MEDS ORDERED: COLLOIDAL OATMEAL 1 BAR EACH TP PRN (19:47)
[2023-11-11] MEDS ORDERED: MAG HYDROX/AL HYDROX/SIMETH 30 ML UNIT-DOSE CUP PO PRN (19:47)
[2023-11-11] MEDS ORDERED: MAGNESIUM HYDROX 2400MG/30ML ORAL SUSPENSION 30 ML CUP PO PRN (19:47)
[2023-11-11] MEDS ORDERED: LOPERAMIDE HCL 2 MG CAPSULE PO PRN (19:47)
[2023-11-11] MEDS ORDERED: cloNIDine HCL 0.1 MG TABLET PO PRN (19:50)
[2023-11-11] MEDS ORDERED: cloNIDine HCL 0.1 MG TABLET PO ONE (19:50)
[2023-11-11] MEDS ORDERED: cloNIDine HCL 0.1 MG TABLET ONE (20:23)
[2023-11-11] MEDS: MELATONIN 5 MG TABLETS PO SCH (22:49)
[2023-11-11] MEDS: THIAMINE HCL 100 MG TABLET (FP) PO SCH (22:49)
[2023-11-11] MEDS ORDERED: TUBERCULIN PPD 5 TU/0.1ML SYRINGE (IN PATIENT USE ONLY) ID ONE (23:48)
[2023-11-12] MEDS ORDERED: diazePAM 5 MG TABLET PO PRN (10:16)
[2023-11-12] MEDS: PRENATAL VITAMINS W/ FOLIC ACID TABLET (FP) PO SCH (10:37)
[2023-11-12] MEDS: amLODIPine BESYLATE 5 MG TABLET (FP) PO SCH (10:37)
[2023-11-12] MEDS: diazePAM 5 MG TABLET PO SCH ×3 (10:38→22:46)
[2023-11-12] MEDS: NICOTINE 14 MG/24 HOURS TOPICAL PATCH TD SCH (10:40)
[2023-11-12 11:43] LABS: HEMATOCRIT 29.6 % (35.4-49); MCH 32.5 pg (25.7-33.7); MCHC 33.8 g/dl (32.0-35.9); MEAN CELL VOLUME 96.3 fl (80-96); MEAN PLT VOLUME 7.4 fl (7.5-11.1); PLATELET COUNT 81 10^3/uL (134-434); RBC 3.08 M/mm3 (4.00-5.60); RDW 15.4 % (11.9-15.9)
[2023-11-12 12:27] LABS: CHLORIDE 109 mmol/L (98-107); POTASSIUM 3.5 mmol/L (3.5-5.1); SODIUM 142 mmol/L (136-145)
[2023-11-12 12:48] LABS: CALCIUM 7.9 mg/dL (8.5-10.1)
[2023-11-12 12:49] LABS: ALBUMIN 2.4 g/dl (3.4-5.0); ANION GAP 8 mmol/L (4-13); BLOOD UREA NITROGEN 11.6 mg/dL (7-18); CO2 25 mmol/L (21-32); GLUCOSE,RANDOM 73 mg/dL (74-106)
[2023-11-12 12:52] LABS: CREATININE 1.3 mg/dL (0.55-1.3); SGPT/ALT 24 U/L (13-61)
[2023-11-12 12:53] LABS: SGOT/AST 52 U/L (15-37)
[2023-11-12 12:54] LABS: BILIRUBIN,TOTAL 2.4 mg/dL (0.2-1); TOT PROT 6.9 g/dl (6.4-8.2)
[2023-11-12 12:55] LABS: ALK PHOS 214 U/L (45-117)
[2023-11-12 12:59] LABS: SYPHILIS W/ RPR CONF NON-REACTIVE (NONREACTIVE)
[2023-11-12] MEDS ORDERED: cloNIDine HCL 0.1 MG TABLET PO ONE (13:52)
[2023-11-12] MEDS ORDERED: LISINOPRIL 10 MG TABLET PO ONE (13:53)
[2023-11-12 16:53] LABS: EPI CELLS 18 /uL (0-25.1); HYALINE CASTS 1 /uL (0-3.1); URINE APPEARANCE CLEAR; URINE BACTERIA 68 /uL (0-1359); URINE BILIRUBIN NEGATIVE (NEGATIVE); URINE COLOR YELLOW; URINE GLUCOSE (UA) NEGATIVE (NEGATIVE); URINE KETONE NEGATIVE (NEGATIVE); URINE LEUK ESTERASE NEGATIVE (NEGATIVE); URINE NITRITE NEGATIVE (NEGATIVE); URINE PROTEIN 2+ (NEGATIVE); URINE RBC 183 /uL (0-23.9); URINE UROBILINOGEN 0.2 mg/dL (0.2-1.0); URINE WBC 21 /uL (0-25.8)
[2023-11-12] MEDS: THIAMINE HCL 100 MG TABLET (FP) PO SCH (22:47)
[2023-11-12] MEDS: MELATONIN 5 MG TABLETS PO SCH (22:51)
[2023-11-13] MEDS: diazePAM 5 MG TABLET PO SCH ×4 (06:00→22:23)
[2023-11-13] MEDS: HYDROCHLOROTHIAZIDE 25 MG TABLET (FP) PO SCH (10:45)
[2023-11-13] MEDS: amLODIPine BESYLATE 5 MG TABLET (FP) PO SCH (10:45)
[2023-11-13] MEDS: LISINOPRIL 10 MG TABLET PO SCH (10:45)
[2023-11-13] MEDS: NICOTINE 14 MG/24 HOURS TOPICAL PATCH TD SCH ×2 (10:45→10:54)
[2023-11-13] MEDS: PRENATAL VITAMINS W/ FOLIC ACID TABLET (FP) PO SCH (10:46)
[2023-11-13 14:29] LABS: HEMATOCRIT 31.6 % (35.4-49); HEMOGLOBIN 10.4 GM/dL (11.7-16.9); MCH 31.4 pg (25.7-33.7); MCHC 32.9 g/dl (32.0-35.9); MEAN CELL VOLUME 95.3 fl (80-96); MEAN PLT VOLUME 7.3 fl (7.5-11.1); PLATELET COUNT 81 10^3/uL (134-434); RBC 3.31 M/mm3 (4.00-5.60); RDW 15.5 % (11.9-15.9)
[2023-11-13 14:39] LABS: WHITE BLOOD COUNT 1.4 K/mm3 (4.0-10.0)
[2023-11-13 15:12] LABS: ANISOCYTOSIS 0; MACROCYTOSIS 0
[2023-11-13 20:21] LABS: EPI CELLS 6 /uL (0-25.1); HYALINE CASTS 1 /uL (0-3.1); URINE APPEARANCE CLEAR; URINE BACTERIA 41 /uL (0-1359); URINE BILIRUBIN NEGATIVE (NEGATIVE); URINE COLOR YELLOW; URINE GLUCOSE (UA) NEGATIVE (NEGATIVE); URINE KETONE NEGATIVE (NEGATIVE); URINE LEUK ESTERASE NEGATIVE (NEGATIVE); URINE NITRITE NEGATIVE (NEGATIVE); URINE PROTEIN TRACE (NEGATIVE); URINE RBC 45 /uL (0-23.9); URINE UROBILINOGEN 0.2 mg/dL (0.2-1.0); URINE WBC 8 /uL (0-25.8)
[2023-11-13] MEDS: THIAMINE HCL 100 MG TABLET (FP) PO SCH (22:21)
[2023-11-13] MEDS: MELATONIN 5 MG TABLETS PO SCH (22:21)
[2023-11-13] MEDS: hydrOXYzine PAMOATE 25 MG CAPSULE (FP) PO PRN (22:23)
[2023-11-14] MEDS: diazePAM 5 MG TABLET PO SCH ×4 (06:37→22:21)
[2023-11-14] MEDS: amLODIPine BESYLATE 5 MG TABLET (FP) PO SCH (09:34)
[2023-11-14] MEDS: HYDROCHLOROTHIAZIDE 25 MG TABLET (FP) PO SCH (09:35)
[2023-11-14] MEDS: PRENATAL VITAMINS W/ FOLIC ACID TABLET (FP) PO SCH (09:35)
[2023-11-14] MEDS: LISINOPRIL 10 MG TABLET PO SCH (09:35)
[2023-11-14] MEDS: NICOTINE 14 MG/24 HOURS TOPICAL PATCH TD SCH (09:35)
[2023-11-14] MEDS: THIAMINE HCL 100 MG TABLET (FP) PO SCH (22:21)
[2023-11-14] MEDS: MELATONIN 5 MG TABLETS PO SCH (22:22)
[2023-11-15] MEDS: diazePAM 5 MG TABLET PO SCH ×2 (07:00→18:11)
[2023-11-15] MEDS: PRENATAL VITAMINS W/ FOLIC ACID TABLET (FP) PO SCH (09:26)
[2023-11-15] MEDS: amLODIPine BESYLATE 5 MG TABLET (FP) PO SCH (09:26)
[2023-11-15] MEDS: HYDROCHLOROTHIAZIDE 25 MG TABLET (FP) PO SCH (09:26)
[2023-11-15] MEDS: LISINOPRIL 10 MG TABLET PO SCH (09:27)
[2023-11-15] MEDS: NICOTINE 14 MG/24 HOURS TOPICAL PATCH TD SCH (09:27)
[2023-11-15] MEDS: hydrOXYzine PAMOATE 25 MG CAPSULE (FP) PO PRN ×2 (09:27→21:05)
[2023-11-15] MEDS: THIAMINE HCL 100 MG TABLET (FP) PO SCH (22:28)
[2023-11-15] MEDS: MELATONIN 5 MG TABLETS PO SCH (22:29)
[2023-11-16] MEDS: diazePAM 5 MG TABLET PO ONE ×2 (06:23→06:30)
[2023-11-16] MEDS: PRENATAL VITAMINS W/ FOLIC ACID TABLET (FP) PO SCH (10:34)
[2023-11-16] MEDS: HYDROCHLOROTHIAZIDE 25 MG TABLET (FP) PO SCH (10:34)
[2023-11-16] MEDS: LISINOPRIL 10 MG TABLET PO SCH (10:34)
[2023-11-16] MEDS: amLODIPine BESYLATE 5 MG TABLET (FP) PO SCH (10:35)
[2023-11-16] MEDS: NICOTINE 14 MG/24 HOURS TOPICAL PATCH TD SCH ×2 (10:35→10:39)
[2023-11-16] MEDS: MELATONIN 5 MG TABLETS PO SCH (21:50)
[2023-11-16] MEDS: THIAMINE HCL 100 MG TABLET (FP) PO SCH (21:52)
[2023-11-16] MEDS: hydrOXYzine PAMOATE 25 MG CAPSULE (FP) PO PRN (21:52)
[2023-11-17] MEDS: PRENATAL VITAMINS W/ FOLIC ACID TABLET (FP) PO SCH (10:31)
[2023-11-17] MEDS: HYDROCHLOROTHIAZIDE 25 MG TABLET (FP) PO SCH (10:31)
[2023-11-17] MEDS: NICOTINE 14 MG/24 HOURS TOPICAL PATCH TD SCH (10:31)
[2023-11-17] MEDS: amLODIPine BESYLATE 5 MG TABLET (FP) PO SCH (10:31)
[2023-11-17] MEDS: LISINOPRIL 10 MG TABLET PO SCH (10:31)
[2023-11-17] MEDS: THIAMINE HCL 100 MG TABLET (FP) PO SCH (22:25)
[2023-11-17] MEDS: MELATONIN 5 MG TABLETS PO SCH (22:25)
[2023-11-17] MEDS: hydrOXYzine PAMOATE 25 MG CAPSULE (FP) PO PRN (22:26)
[2023-11-18 09:15] VITALS: BP 136/99; PULSE 87; RESP 18; TEMP 98
[2023-11-18] MEDS: HYDROCHLOROTHIAZIDE 25 MG TABLET (FP) PO SCH (09:20)
[2023-11-18] MEDS: NICOTINE 14 MG/24 HOURS TOPICAL PATCH TD SCH (09:20)
[2023-11-18] MEDS: LISINOPRIL 10 MG TABLET PO SCH (09:20)
[2023-11-18] MEDS: amLODIPine BESYLATE 5 MG TABLET (FP) PO SCH (09:20)
[2023-11-18] MEDS: PRENATAL VITAMINS W/ FOLIC ACID TABLET (FP) PO SCH (09:20)
== END 2023-11-18 09:27 | disposition home or self-care (01) | DRG 775 ==
LOC: YASAS 14:45 → Y6N 20:39
PROVIDERS: ADMIT Allergy & Immunology; ATTEND Surgery
PROC: HZ2ZZZZ Detoxification Services for Substance Abuse Treatment (ICD-10-PCS; principal; 2023-11-11)
DX: F10.230 Alcohol dependence with withdrawal, uncomplicated (principal); F17.210 Nicotine dependence, cigarettes, uncomplicated; F10.280 Alcohol dependence with alcohol-induced anxiety disorder; F10.282 Alcohol dependence with alcohol-induced sleep disorder; F10.24 Alcohol dependence with alcohol-induced mood disorder; I10 Essential (primary) hypertension; K21.9 Gastro-esophageal reflux disease without esophagitis; R31.21 Asymptomatic microscopic hematuria; R63.6 Underweight; Z68.1 Body mass index [BMI] 19.9 or less, adult; Z87.19 Personal history of other diseases of the digestive system; Z88.0 Allergy status to penicillin; Z88.6 Allergy status to analgesic agent
CPT/HCPCS: 36415; 80053; 80307; 81003; 82247; 85025; 85027; 86780; 86803; 87635; 93005; 93010

== ENCOUNTER 2023-12-11 18:47 | Inpatient (IN) | payer OTHER ==
[2023-12-11 22:36] VITALS: BMI 16.9
[2023-12-12] MEDS ORDERED: BISMUTH SUBSALICYLATE 524 MG/30 ML PO PRN (02:55)
[2023-12-12] MEDS ORDERED: BENZOCAINE/MENTHOL (CHLORASEPTIC ) LOZENGE MM PRN (02:55)
[2023-12-12] MEDS ORDERED: guaiFENesin 600 MG TABLET.ER (FP) PO PRN (02:55)
[2023-12-12] MEDS ORDERED: NALOXONE HCL (KLOXXADO) 8 MG SPRAY NS PRN (02:55)
[2023-12-12] MEDS ORDERED: hydrOXYzine PAMOATE 25 MG CAPSULE (FP) PO PRN (02:55)
[2023-12-12] MEDS ORDERED: ONDANSETRON *ODT* 4 MG TABLET SL PRN (02:55)
[2023-12-12] MEDS ORDERED: MAG HYDROX/AL HYDROX/SIMETH 30 ML UNIT-DOSE CUP PO PRN (02:55)
[2023-12-12] MEDS ORDERED: POLYETHYLENE GLYCOL (HEALTHYLAX) 3350 17 GM PACKET PO PRN (02:55)
[2023-12-12] MEDS ORDERED: MAGNESIUM HYDROX 2400MG/30ML ORAL SUSPENSION 30 ML CUP PO PRN (02:55)
[2023-12-12] MEDS ORDERED: NALOXONE HCL 0.4 MG/ML VIAL IM PRN (02:55)
[2023-12-12] MEDS ORDERED: BENZONATATE 200 MG CAPSULE PO PRN (02:55)
[2023-12-12] MEDS ORDERED: LOPERAMIDE HCL 2 MG CAPSULE PO PRN (02:55)
[2023-12-12] MEDS: PRENATAL VITAMINS W/ FOLIC ACID TABLET (FP) PO SCH (09:54)
[2023-12-12] MEDS: THIAMINE HCL 100 MG TABLET (FP) PO SCH (22:45)
[2023-12-12] MEDS: MELATONIN 5 MG TABLETS PO SCH (22:46)
[2023-12-12] MEDS: ACETAMINOPHEN 325 MG TABLET (FP) PO PRN (22:47)
[2023-12-13 11:41] LABS: HEMATOCRIT 29.9 % (35.4-49); HEMOGLOBIN 10.2 GM/dL (11.7-16.9); MCHC 34.1 g/dl (32.0-35.9); MEAN CELL VOLUME 93.6 fl (80-96); PLATELET COUNT 131 10^3/uL (134-434); RDW 13.2 % (11.9-15.9)
[2023-12-14] MEDS ORDERED: ALBUTEROL SO4 HFA INHALER IH PRN (08:12)
[2023-12-14 09:34] VITALS: BP 130/88; PULSE 95; RESP 18; TEMP 97.8
[2023-12-14] MEDS: amLODIPine BESYLATE 5 MG TABLET (FP) PO SCH (10:38)
[2023-12-14 11:20] LABS: BASO % 0.2 % (0-2.0); EOS % 5.1 % (0-4.5); HEMATOCRIT 26.3 % (35.4-49); HEMOGLOBIN 9.1 GM/dL (11.7-16.9); LYMPH % 13.2 % (8-40); MCH 32.7 pg (25.7-33.7); MCHC 34.8 g/dl (32.0-35.9); MEAN CELL VOLUME 93.8 fl (80-96); MEAN PLT VOLUME 7.3 fl (7.5-11.1); MONO % 15.9 % (3.8-10.2); NEUT % 65.6 % (42.8-82.8); PLATELET COUNT 119 10^3/uL (134-434); RDW 13.4 % (11.9-15.9)
[2023-12-14 11:23] LABS: WHITE BLOOD COUNT 1.8 K/mm3 (4.0-10.0)
[2023-12-14 12:00] LABS: ANISOCYTOSIS 0; MACROCYTOSIS 0
[2023-12-14] MEDS ORDERED: FLU VACCINE (FLULAVAL) PF 60 MCG/0.5 ML SYRINGE 2023-2024 IM ONE (12:00)
== END 2023-12-14 11:06 | disposition home or self-care (01) | DRG 775 ==
LOC: YASAS 18:47 → Y6N 12-12 08:41
PROVIDERS: ADMIT Allergy & Immunology; ATTEND Surgery
PROC: HZ2ZZZZ Detoxification Services for Substance Abuse Treatment (ICD-10-PCS; principal; 2023-12-12)
DX: F10.230 Alcohol dependence with withdrawal, uncomplicated (principal); D61.818 Other pancytopenia; I10 Essential (primary) hypertension; J45.909 Unspecified asthma, uncomplicated; Z87.891 Personal history of nicotine dependence; Z99.89 Dependence on other enabling machines and devices; Z88.0 Allergy status to penicillin; Z88.6 Allergy status to analgesic agent
CPT/HCPCS: 36415; 82607; 82728; 83540; 83550; 85025; 85027; 86780; 87635

== ENCOUNTER 2024-08-02 16:19 | Inpatient (IN) | payer OTHER ==
[2024-08-02 17:53] VITALS: BMI 17.2
[2024-08-02] MEDS ORDERED: POLYETHYLENE GLYCOL (HEALTHYLAX) 3350 17 GM PACKET PO PRN (18:55)
[2024-08-02] MEDS ORDERED: NALOXONE (NARCAN) HCL 4 MG/0.1 ML SPRAY NS PRN (18:55)
[2024-08-02] MEDS ORDERED: BENZONATATE 200 MG CAPSULE PO PRN (18:55)
[2024-08-02] MEDS ORDERED: DICYCLOMINE HCL 10 MG CAPSULE PO PRN (18:55)
[2024-08-02] MEDS ORDERED: BISMUTH SUBSALICYLATE 524 MG/30 ML PO PRN (18:55)
[2024-08-02] MEDS ORDERED: ONDANSETRON *ODT* 4 MG TABLET SL PRN (18:55)
[2024-08-02] MEDS ORDERED: LOPERAMIDE HCL 2 MG CAPSULE PO PRN (18:55)
[2024-08-02] MEDS ORDERED: MAGNESIUM HYDROX 2400MG/30ML ORAL SUSPENSION 30 ML CUP PO PRN (18:55)
[2024-08-02] MEDS ORDERED: BENZOCAINE/MENTHOL (CHLORASEPTIC ) LOZENGE MM PRN (18:55)
[2024-08-02] MEDS ORDERED: guaiFENesin 600 MG TABLET.ER (FP) PO PRN (18:55)
[2024-08-02] MEDS ORDERED: MAG HYDROX/AL HYDROX/SIMETH 30 ML UNIT-DOSE CUP PO PRN (18:55)
[2024-08-02] MEDS ORDERED: IBUPROFEN 600 MG TABLET (FP) PO PRN (18:55)
[2024-08-02] MEDS ORDERED: ACETAMINOPHEN 325 MG TABLET (FP) PO PRN (18:55)
[2024-08-02] MEDS ORDERED: IBUPROFEN 400 MG TABLET (FP) PO PRN (18:55)
[2024-08-02] MEDS ORDERED: ALBUTEROL SO4 HFA INHALER IH PRN (19:03)
[2024-08-02] MEDS ORDERED: LISINOPRIL 10 MG TABLET ONE (19:06)
[2024-08-02] MEDS ORDERED: diazePAM 5 MG TABLET ONE (19:09)
[2024-08-02] MEDS: LISINOPRIL 10 MG TABLET PO ONE (19:11)
[2024-08-02] MEDS: NALOXONE (NYS OPIOID OVERDOSE PROGRAM) 4 MG/0.1 ML SPRAY NS ONE (19:12)
[2024-08-02] MEDS: diazePAM 5 MG TABLET PO PRN (19:13)
[2024-08-02] MEDS: metoPROLOL SUCCINATE 25 MG TAB.SR.24H (FP) PO ONE (20:10)
[2024-08-02] MEDS: CLOPIDOGREL BISULFATE 75 MG TABLET (FP) PO SCH (20:10)
[2024-08-02] MEDS: metoPROLOL SUCCINATE 25 MG TAB.SR.24H (FP) PO SCH (20:11)
[2024-08-02] MEDS: THIAMINE 100 MG TABLET PO SCH (22:14)
[2024-08-02] MEDS: ATORVASTATIN CA 80 MG TABLET (FP) PO SCH (22:14)
[2024-08-02] MEDS: MELATONIN 5 MG TABLETS PO SCH (22:15)
[2024-08-02] MEDS: diazePAM 5 MG TABLET PO SCH (22:15)
[2024-08-03] MEDS: LISINOPRIL 10 MG TABLET PO SCH (09:29)
[2024-08-03] MEDS: metoPROLOL SUCCINATE 25 MG TAB.SR.24H (FP) PO SCH (09:29)
[2024-08-03] MEDS: hydrOXYzine PAMOATE 25 MG CAPSULE (FP) PO PRN (09:29)
[2024-08-03] MEDS: METHOCARBAMOL 500 MG TABLET PO PRN (09:29)
[2024-08-03] MEDS: PRENATAL VITAMINS W/ FOLIC ACID TABLET (FP) PO SCH (09:29)
[2024-08-03 12:12] LABS: HEMATOCRIT 34.4 % (35.4-49); HEMOGLOBIN 11.3 GM/dL (11.7-16.9); MCH 30.5 pg (25.7-33.7); MCHC 32.8 g/dl (32.0-35.9); MEAN CELL VOLUME 93.1 fl (80-96); MEAN PLT VOLUME 7.7 fl (7.5-11.1); PLATELET COUNT 103 10^3/uL (134-434); RBC 3.69 M/mm3 (4.00-5.60)
[2024-08-03 12:28] LABS: WHITE BLOOD COUNT 1.8 K/mm3 (4.0-10.0)
[2024-08-03 14:40] LABS: CHLORIDE 107 mmol/L (98-107); POTASSIUM 3.5 mmol/L (3.5-5.1); SODIUM 138 mmol/L (136-145)
[2024-08-03 14:45] LABS: ALBUMIN 2.8 g/dl (3.4-5.0); ANION GAP 4 mmol/L (4-13); CALCIUM 8.5 mg/dL (8.5-10.1); CO2 28 mmol/L (21-32); GLUCOSE,RANDOM 86 mg/dL (74-106)
[2024-08-03 14:47] LABS: SGPT/ALT 27 U/L (13-61)
[2024-08-03 14:48] LABS: CREATININE 1.3 mg/dL (0.55-1.3); SGOT/AST 59 U/L (15-37)
[2024-08-03 14:49] LABS: BILIRUBIN,TOTAL 2.7 mg/dL (0.2-1); TOT PROT 7.8 g/dl (6.4-8.2)
[2024-08-03 14:50] LABS: ALK PHOS 523 U/L (45-117)
[2024-08-04] MEDS: diazePAM 5 MG TABLET PO SCH (05:46)
[2024-08-04 15:05] LABS: HEMATOCRIT 33.1 % (35.4-49); HEMOGLOBIN 11.1 GM/dL (11.7-16.9); MCH 31.3 pg (25.7-33.7); MCHC 33.6 g/dl (32.0-35.9); MEAN CELL VOLUME 93.2 fl (80-96); MEAN PLT VOLUME 7.1 fl (7.5-11.1); PLATELET COUNT 88 10^3/uL (134-434); RBC 3.55 M/mm3 (4.00-5.60); RDW 15.7 % (11.9-15.9)
[2024-08-04 15:14] LABS: WHITE BLOOD COUNT 1.4 K/mm3 (4.0-10.0)
[2024-08-04 15:29] LABS: ANISOCYTOSIS 1+; MACROCYTOSIS 0
[2024-08-04 15:41] LABS: POTASSIUM 3.9 mmol/L (3.5-5.1)
[2024-08-04 15:50] LABS: ALBUMIN 2.8 g/dl (3.4-5.0); BLOOD UREA NITROGEN 10.2 mg/dL (7-18); CALCIUM 8.2 mg/dL (8.5-10.1)
[2024-08-04 15:54] LABS: CREATININE 1.2 mg/dL (0.55-1.3)
[2024-08-04 15:55] LABS: BILIRUBIN,TOTAL 2.7 mg/dL (0.2-1); TOT PROT 7.6 g/dl (6.4-8.2)
[2024-08-05] MEDS: diazePAM 5 MG TABLET PO SCH (06:31)
[2024-08-05 13:31] LABS: HEMATOCRIT 34.4 % (35.4-49); HEMOGLOBIN 11.6 GM/dL (11.7-16.9); MCH 31.1 pg (25.7-33.7); MCHC 33.6 g/dl (32.0-35.9); MEAN CELL VOLUME 92.5 fl (80-96); MEAN PLT VOLUME 7.5 fl (7.5-11.1); PLATELET COUNT 95 10^3/uL (134-434); RBC 3.72 M/mm3 (4.00-5.60); RDW 15.6 % (11.9-15.9); WHITE BLOOD COUNT 2.1 K/mm3 (4.0-10.0)
[2024-08-05] MEDS ORDERED: NALOXONE (NYS OPIOID OVERDOSE PROGRAM) 4 MG/0.1 ML SPRAY NS PRN (14:19)
[2024-08-05] MEDS: NALOXONE (NYS OPIOID OVERDOSE PROGRAM) 4 MG/0.1 ML SPRAY NS ONE (14:21)
[2024-08-06] MEDS: diazePAM 5 MG TABLET PO ONE (05:54)
[2024-08-06 06:07] VITALS: RESP 16
[2024-08-06 08:38] VITALS: PULSE 79
[2024-08-06 11:00] VITALS: BP 138/80; TEMP 97
== END 2024-08-06 12:29 | disposition home or self-care (01) | DRG 775 ==
LOC: YASAS 16:19 → Y6N 19:06
PROVIDERS: ADMIT Allergy & Immunology; ATTEND Surgery
PROC: HZ2ZZZZ Detoxification Services for Substance Abuse Treatment (ICD-10-PCS; principal; 2024-08-02)
DX: F10.230 Alcohol dependence with withdrawal, uncomplicated (principal); F10.282 Alcohol dependence with alcohol-induced sleep disorder; F10.24 Alcohol dependence with alcohol-induced mood disorder; F32.9 Major depressive disorder, single episode, unspecified; D61.818 Other pancytopenia; I25.10 Atherosclerotic heart disease of native coronary artery without angina pectoris; I10 Essential (primary) hypertension; I25.2 Old myocardial infarction; Z95.5 Presence of coronary angioplasty implant and graft; J45.909 Unspecified asthma, uncomplicated; E78.5 Hyperlipidemia, unspecified; Z79.01 Long term (current) use of anticoagulants; Z87.19 Personal history of other diseases of the digestive system; Z88.0 Allergy status to penicillin; Z88.8 Allergy status to other drugs, medicaments and biological substances
CPT/HCPCS: 36415; 80053; 80305; 80307; 85025; 85027; 86780; 93005; 93010

== ENCOUNTER 2025-01-31 15:00 | Inpatient (IN) | payer OTHER ==
[2025-01-31 16:12] LABS: HEMATOCRIT 24.6 % (40.1-51.0); HEMOGLOBIN 8.3 g/dL (13.7-17.5); MCHC 33.7 g/dl (32.3-36.5); MEAN CELL VOLUME 89.8 fl (79.0-92.2); MEAN PLT VOLUME 10.7 fl (9.4-12.4); PLATELET COUNT 96 x10^3/uL (163-337); RDW 14.2 % (12.2-16.1)
[2025-01-31 16:32] LABS: POTASSIUM 5.4 mmol/L (3.5-5.1)
[2025-01-31 16:33] LABS: BLOOD UREA NITROGEN 29.1 mg/dL (7-18)
[2025-01-31 16:34] LABS: CALCIUM 13.4 mg/dL (8.5-10.1)
[2025-01-31 16:38] LABS: CREATININE 3.4 mg/dL (0.55-1.3)
[2025-01-31 16:39] LABS: BILIRUBIN,TOTAL 0.7 mg/dL (0.2-1)
[2025-01-31] MEDS: SODIUM CHLORIDE 0.9% 500 ML INFUS.BAG IV ONE (16:48)
[2025-01-31 18:46] LABS: HEMATOCRIT 21.3 % (40.1-51.0); HEMOGLOBIN 7.3 g/dL (13.7-17.5); MCHC 34.3 g/dl (32.3-36.5); MEAN CELL VOLUME 92.2 fl (79.0-92.2); MEAN PLT VOLUME 9.4 fl (9.4-12.4); PLATELET COUNT 71 x10^3/uL (163-337); RDW 14.3 % (12.2-16.1)
[2025-01-31] MEDS: SODIUM CHLORIDE 1,000 ML IV STA (19:15)
[2025-01-31 20:22] LABS: EPI CELLS 5 /uL (0-25.1); HYALINE CASTS 0 /uL (0-3.1); URINE APPEARANCE CLEAR; URINE BACTERIA 12 /uL (0-1359); URINE BILIRUBIN NEGATIVE (NEGATIVE); URINE COLOR YELLOW; URINE GLUCOSE (UA) NEGATIVE (NEGATIVE); URINE KETONE NEGATIVE (NEGATIVE); URINE LEUK ESTERASE NEGATIVE (NEGATIVE); URINE NITRITE NEGATIVE (NEGATIVE); URINE PROTEIN 1+ (NEGATIVE); URINE RBC 12 /uL (0-23.9); URINE UROBILINOGEN 0.2 mg/dL (0.2-1.0); URINE WBC 15 /uL (0-25.8)
[2025-01-31] MEDS: ZOLEDRONIC ACID 4 MG in SODIUM CHLORIDE 100 ML IVPB ONE (21:08)
[2025-01-31] MEDS: SODIUM CHLORIDE 1,000 ML IV SCH (21:52)
[2025-02-01 06:46] LABS: HEMOGLOBIN 7.6 g/dL (13.7-17.5); MCHC 34.5 g/dl (32.3-36.5); MEAN CELL VOLUME 89.8 fl (79.0-92.2); MEAN PLT VOLUME 9.9 fl (9.4-12.4); PLATELET COUNT 76 x10^3/uL (163-337); RDW 13.9 % (12.2-16.1)
[2025-02-01 07:11] LABS: BLOOD UREA NITROGEN 26.9 mg/dL (7-18); MAGNESIUM 1.3 mg/dL (1.8-2.4)
[2025-02-01 07:15] LABS: CREATININE 3.3 mg/dL (0.55-1.3); PHOSPHOROUS 5.8 mg/dL (2.5-4.9)
[2025-02-01 07:25] LABS: CALCIUM 11.2 mg/dL (8.5-10.1)
[2025-02-01] MEDS ORDERED: ALBUTEROL SO4 HFA INHALER IH PRN (09:29)
[2025-02-01] MEDS ORDERED: METOPROLOL TARTRATE 25 MG TABLET (FP) PO SCH (10:00)
[2025-02-01] MEDS: SODIUM CHLORIDE 1,000 ML IV SCH (10:04)
[2025-02-01] MEDS: PANTOPRAZOLE 40 MG TABLET PO SCH (10:04)
[2025-02-01] MEDS: HYDROCHLOROTHIAZIDE 12.5 MG CAPSULE (FP) PO SCH (10:04)
[2025-02-01] MEDS: METOPROLOL TARTRATE 25 MG TABLET (FP) PO SCH (10:04)
[2025-02-01] MEDS: amLODIPine BESYLATE 5 MG TABLET (FP) PO SCH (10:04)
[2025-02-01] MEDS: MAGNESIUM SULFATE IN WATER 2 GM/50 ML IVPB IVPB ONE (10:04)
[2025-02-01] MEDS: LOSARTAN POTASSIUM 50 MG TABLET PO SCH (10:05)
[2025-02-01 13:41] VITALS: BMI 16.5
[2025-02-01 17:11] VITALS: RESP 18
[2025-02-01] MEDS: ATORVASTATIN CA 40 MG TABLET (FP) PO SCH (21:07)
[2025-02-01] MEDS: THIAMINE 100 MG TABLET PO SCH (21:07)
[2025-02-01] MEDS: MELATONIN 5 MG TABLETS PO ONE (21:32)
[2025-02-02 07:58] LABS: POTASSIUM 4.2 mmol/L (3.5-5.1)
[2025-02-02 08:02] LABS: HEMATOCRIT 19.9 % (40.1-51.0); MCHC 35.2 g/dl (32.3-36.5); PLATELET COUNT 75 x10^3/uL (163-337); RDW 13.7 % (12.2-16.1)
[2025-02-02 08:11] LABS: ALBUMIN 2.6 g/dl (3.4-5.0); BLOOD UREA NITROGEN 26.6 mg/dL (7-18)
[2025-02-02 08:14] LABS: MAGNESIUM 1.5 mg/dL (1.8-2.4); PHOSPHOROUS 5.4 mg/dL (2.5-4.9)
[2025-02-02 08:15] LABS: BILIRUBIN,TOTAL 0.8 mg/dL (0.2-1); TOT PROT 6.8 g/dl (6.4-8.2)
[2025-02-02] MEDS: FOLIC ACID 1 MG TABLET (FP) PO SCH (10:03)
[2025-02-02] MEDS: MULTIVITAMINS (DAILY MVI) TABLET (FP) PO SCH (10:03)
[2025-02-02 14:29] VITALS: BP 148/84; PULSE 71; TEMP 97.9
[2025-02-02 21:07] LABS: ANTIGLOMERULAR BASEMENT MEN.AB <0.2 units (0.0-0.9)
[2025-02-03 07:08] LABS: BETA-2-MICROGLOBULIN 13.4 mg/L (0.6-2.4)
[2025-02-03 15:10] LABS: IMMUNOGLOBULIN D 1.62 mg/dL (<14.11)
[2025-02-03 20:07] LABS: C-ANCA <1:20 titer (Neg:<1:20)
[2025-02-06 19:09] LABS: IG A QN SERUM. 957 mg/dL (90-386)
== END 2025-02-02 16:43 | disposition home or self-care (01) | DRG 425 ==
LOC: JER 15:00 → JERBED 16:32 → OBSVTOIN 17:32 → J2W 21:34 → J8W 02-01 13:57
PROVIDERS: ADMIT Internal Medicine; ATTEND Nurse Practitioner Acute Care
DX: E83.52 Hypercalcemia (principal); D61.818 Other pancytopenia; E43 Unspecified severe protein-calorie malnutrition; R64 Cachexia; I25.10 Atherosclerotic heart disease of native coronary artery without angina pectoris; J45.909 Unspecified asthma, uncomplicated; Z68.1 Body mass index [BMI] 19.9 or less, adult; E83.39 Other disorders of phosphorus metabolism; K50.10 Crohn's disease of large intestine without complications; F10.239 Alcohol dependence with withdrawal, unspecified; I10 Essential (primary) hypertension
CPT/HCPCS: 36415; 71046-TC-FY; 76705-TC; 76775-TC; 80048; 80053; 81003; 82232; 82306; 82784; 82785; 83516; 83520; 83615; 83735; 83883; 83970; 84100; 84155; 84165; 85025; 86038; 86160; 86225; 86256; 87086; 93005; 93010; 99285-25; G0378